=== PATIENT | female | born 1940 | race Caucasian/White ===

== ENCOUNTER → 2016-10-09 | Outpatient (CLI) | payer MEDICARE ==
[~2016-10-09] MED LIST: ALLOPURINOL100 MG PO; ATIVAN0.5 MG PO; ATIVAN1 MG PO; BACTRIM DS 8001 TA1 PO; COREG25 MG; COREG3.125 MG PO; DONNATAL1 TAB PO; Fioricet 325 MG1 TAB PO; KENALOG0.1% TP; NEURONTIN300 MG PO; PHENERGAN25 M3 PO; PREVACID30 MG PO; PRILOSEC20 M1 PO; PRILOSEC20 MG; PRILOSEC20 MG PO; REGLAN10 MG PO; REGLAN5 MG PO; RESTORIL15 MG PO; RESTORIL30 MG PO; SYMBICORT1 AER INH; TRAMADOL HCL50 MG; TYLENOL WITH CO1 TA1; ULTRAM50 MG PO; VICODIN 5/500 505 MG PO; VICODIN1 TAB PO; Vicodin 5/500 505 MG PO; ZANTAC 150150 MG PO; ZOFRAN ODT4 MG SL; [UNRECOGNIZED DRUG - REMARK]; [UNRECOGNIZED DRUG - REMARK]
[2016-10-09 10:44] LABS: BASO % 0.3 % (0.0-1.0); EOS # 0.2 10*3/uL (0.0-0.4); EOS % 4.3 % (1.0-4.0); HEMATOCRIT 37.4 % (37.0-47.0); HEMOGLOBIN 12.4 g/dl (12.0-16.0); LYMPH # 0.8 10*3/uL (1.3-4.4); LYMPH % 22.4 % (27.0-41.0); MEAN CELL VOLUME 93.5 fl (81.0-99.0); MEAN CORPUSCULAR HGB CONC 33.2 g/dl (33.0-37.0); MEAN PLATELET VOLUME 9.8 fl (9.6-12.3); MONO # 0.3 10*3/uL (0.1-1.0); MONO % 8.5 % (3.0-9.0); NEUT # 2.4 10*3/uL (2.3-7.9); PLATELET COUNT AUTOMATED 145 10*3/uL (130-400); RED CELL DISTRI WIDTH 13.7 % (0-14.5); WHITE BLOOD COUNT 3.8 10*3/uL (4.8-10.8)
[2016-10-09 11:12] LABS: ALBUMIN 3.6 gm/dl (3.1-4.5); ALKALINE PHOSPHATASE 116 U/L (45-117); BILIRUBIN, DIRECT < 0.1 mg/dL (0.0-0.2); BILIRUBIN, TOTAL 0.3 mg/dl (0.2-1.0); BUN 13 mg/dl (7-24); CARBON DIOXIDE 28 mmol/L (21-32); CHLORIDE 110 mmol/L (98-107); EST GLOM FILT AFRICAN AMERICAN > 60 ml/min; GLUCOSE 104 mg/dL (65-99); SGOT/AST 17 IU/L (3-35); SGPT/ALT 22 U/L (12-78); SODIUM 144 mmol/L (136-145)
== END | disposition home or self-care (01) ==
LOC: LAB 10:06
PROVIDERS: Family Medicine
DX: I10 Essential (primary) hypertension (principal)

== ENCOUNTER → 2017-01-20 | Outpatient (CLI) | payer MEDICARE ==
[2017-01-20 17:50] LABS: BASO % 0.2 % (0.0-1.0); EOS # 0.2 10*3/uL (0.0-0.4); EOS % 3.6 % (1.0-4.0); HEMATOCRIT 40.7 % (37.0-47.0); HEMOGLOBIN 13.4 g/dl (12.0-16.0); LYMPH # 1.4 10*3/uL (1.3-4.4); LYMPH % 28.8 % (27.0-41.0); MEAN CELL VOLUME 94.9 fl (81.0-99.0); MEAN CORPUSCULAR HGB 31.2 pg (27.0-31.0); MEAN CORPUSCULAR HGB CONC 32.9 g/dl (33.0-37.0); MEAN PLATELET VOLUME 9.9 fl (9.6-12.3); MONO # 0.4 10*3/uL (0.1-1.0); MONO % 8.2 % (3.0-9.0); NEUT # 2.8 10*3/uL (2.3-7.9); PLATELET COUNT AUTOMATED 154 10*3/uL (130-400); RED BLOOD COUNT 4.29 10*6/uL (4.10-5.10); RED CELL DISTRI WIDTH 12.8 % (0-14.5); WHITE BLOOD COUNT 4.8 10*3/uL (4.8-10.8)
[2017-01-20 18:18] LABS: ALBUMIN 4.2 gm/dl (3.1-4.5); ALKALINE PHOSPHATASE 127 U/L (45-117); BILIRUBIN, DIRECT < 0.1 mg/dL (0.0-0.2); BILIRUBIN, TOTAL 0.4 mg/dl (0.2-1.0); BUN 11 mg/dl (7-24); CARBON DIOXIDE 27 mmol/L (21-32); CHLORIDE 108 mmol/L (98-107); EST GLOM FILT AFRICAN AMERICAN > 60 ml/min; GLUCOSE 97 mg/dL (65-99); POTASSIUM 4.1 mmol/L (3.5-5.1); SGOT/AST 18 IU/L (3-35); SGPT/ALT 20 U/L (12-78); SODIUM 143 mmol/L (136-145); TOTAL PROTEIN 7.2 gm/dL (6.4-8.2)
== END | disposition home or self-care (01) ==
LOC: LAB 16:37
PROVIDERS: Family Medicine
DX: R10.9 Unspecified abdominal pain (principal)

== ENCOUNTER → 2017-06-13 | Outpatient (CLI) | payer MEDICARE | LOC: RAD 13:39 | DX: M43.22 Fusion of spine, cervical region (principal) ==

== ENCOUNTER → 2017-08-29 | Outpatient (CLI) | payer MEDICARE ==
[2017-08-29 12:35] LABS: BASO % 0.5 % (0.0-1.0); EOS # 0.2 10*3/uL (0.0-0.4); EOS % 4.7 % (1.0-4.0); HEMATOCRIT 39.9 % (37.0-47.0); HEMOGLOBIN 13.6 g/dl (12.0-16.0); LYMPH # 1.2 10*3/uL (1.3-4.4); MEAN CELL VOLUME 93.2 fl (81.0-99.0); MEAN CORPUSCULAR HGB 31.8 pg (27.0-31.0); MEAN CORPUSCULAR HGB CONC 34.1 g/dl (33.0-37.0); MEAN PLATELET VOLUME 9.9 fl (9.6-12.3); MONO # 0.3 10*3/uL (0.1-1.0); MONO % 7.8 % (3.0-9.0); NEUT # 2.5 10*3/uL (2.3-7.9); NEUT % 58.8 % (47.0-73.0); PLATELET COUNT AUTOMATED 179 10*3/uL (130-400); RED BLOOD COUNT 4.28 10*6/uL (4.10-5.10); RED CELL DISTRI WIDTH 12.4 % (0-14.5); WHITE BLOOD COUNT 4.3 10*3/uL (4.8-10.8)
[2017-08-29 13:04] LABS: ALBUMIN 3.8 gm/dl (3.1-4.5); BILIRUBIN, DIRECT 0.1 mg/dL (0.0-0.2); BUN 20 mg/dl (7-24); CHLORIDE 108 mmol/L (98-107); CHOLESTEROL 212 mg/dL (<200); POTASSIUM 4.3 mmol/L (3.5-5.1); SGOT/AST 16 IU/L (3-35); SGPT/ALT 20 U/L (12-78); SODIUM 141 mmol/L (136-145); TRIGLYCERIDES 130 mg/dl (<150); VLDL CHOLESTEROL 26 mg/dL (6-40)
[2017-08-29 13:11] LABS: ALKALINE PHOSPHATASE 108 U/L (45-117); HDL CHOLESTEROL 48 mg/dl (40-60); LDL CHOLESTEROL 138 mg/dL (9-159); THYROXINE (T4) TOTAL 7.8 ug/dl (4.8-13.9)
== END | disposition home or self-care (01) ==
LOC: LAB 11:39
PROVIDERS: Family Medicine
DX: I10 Essential (primary) hypertension (principal)

== ENCOUNTER 2017-10-12 00:16 | Inpatient (IN) | payer MEDICARE ==
[~2017-10-12] VITALS: Ht 170.1 cm; Wt 78.6 kg
[~2017-10-12 00:16] MED LIST changes: -COREG25 MG; +COREG25 MG PO
[2017-10-12 00:17] VITALS: BP 119/69
[2017-10-12 01:07] LABS: BASO % 0.2 % (0.0-1.0); EOS # 0.1 10*3/uL (0.0-0.4); EOS % 0.6 % (1.0-4.0); HEMATOCRIT 44.1 % (37.0-47.0); HEMOGLOBIN 14.7 g/dl (12.0-16.0); LYMPH # 1.4 10*3/uL (1.3-4.4); LYMPH % 9.8 % (27.0-41.0); MEAN CORPUSCULAR HGB CONC 33.3 g/dl (33.0-37.0); MEAN PLATELET VOLUME 9.9 fl (9.6-12.3); MONO # 0.8 10*3/uL (0.1-1.0); MONO % 5.8 % (3.0-9.0); NEUT # 12.1 10*3/uL (2.3-7.9); NEUT % 83.2 % (47.0-73.0); PLATELET COUNT AUTOMATED 229 10*3/uL (130-400); RED BLOOD COUNT 4.74 10*6/uL (4.10-5.10); RED CELL DISTRI WIDTH 13.1 % (0-14.5); WHITE BLOOD COUNT 14.5 10*3/uL (4.8-10.8)
[2017-10-12 01:22] LABS: ACETAMINOPHEN (TYLENOL) < 2.0 ug/ml (10-30); ALKALINE PHOSPHATASE 125 U/L (45-117); BUN 17 mg/dl (7-24); CHLORIDE 105 mmol/L (98-107); CREATININE 0.94 mg/dL (0.55-1.02); POTASSIUM 4.4 mmol/L (3.5-5.1); SGOT/AST 62 IU/L (3-35); SGPT/ALT 42 U/L (12-78); SODIUM 138 mmol/L (136-145); TOTAL PROTEIN 7.2 gm/dL (6.4-8.2)
[2017-10-12 01:30] LABS: THYROID STIM HORMONE (HS) 0.508 uIU/ml (0.358-4.75)
[2017-10-12 02:30] VITALS: BP 127/62
[2017-10-12 03:30] VITALS: BP 110/70
[2017-10-12 03:39] LABS: BILIRUBIN NEGATIVE (NEGATIVE); BLOOD 3+ (NEGATIVE); CLARITY CLEAR (CLEAR); COLOR YELLOW (YELLOW); GLUCOSE NEGATIVE (NEGATIVE); KETONE NEGATIVE (NEGATIVE); LEUKO ESTERASE NEGATIVE (NEGATIVE); NITRITE NEGATIVE (NEGATIVE); PH 5.5 (5.0-9.0); SPECIFIC GRAVITY 1.015 (1.005-1.030); UROBILINOGEN 0.2 E.U./dl (0.2-1.0)
[2017-10-12 03:44] LABS: URINE AMPHETAMINES < 1000 (1000ng/ml); URINE BARBITURATES < 200 (200ng/ml); URINE BENZODIAZEPINES < 200 (200ng/ml); URINE CANNABINOIDS (THC) < 50 (50ng/ml); URINE COCAINE < 300 (300ng/ml); URINE METHADONE < 300 (300ng/ml); URINE OPIATES < 300 (300ng/ml); URINE PHENCYCLIDINE < 25 (25ng/ml)
[2017-10-12 03:45] VITALS: BP 127/81
[2017-10-12] MEDS ORDERED: NORVASC2.5 MG PO (04:39)
[2017-10-12] MEDS ORDERED: PRILOSEC20 M1 PO (04:39)
[2017-10-12] MEDS ORDERED: ATIVAN0.5 MG PO (04:42)
[2017-10-12 06:11] LABS: ALBUMIN 3.3 gm/dl (3.1-4.5); ALKALINE PHOSPHATASE 98 U/L (45-117); BUN 15 mg/dl (7-24); CHLORIDE 111 mmol/L (98-107); CREATININE 0.81 mg/dL (0.55-1.02); PHOSPHOROUS 2.4 mg/dL (2.5-4.9); POTASSIUM 4.1 mmol/L (3.5-5.1); SGOT/AST 59 IU/L (3-35); SGPT/ALT 36 U/L (12-78); SODIUM 144 mmol/L (136-145); TOTAL PROTEIN 5.7 gm/dL (6.4-8.2)
[2017-10-12 06:26] LABS: CPK 1483 U/L (26-192)
[2017-10-12 07:20] LABS: BASO % 0.1 % (0.0-1.0); EOS % 0.1 % (1.0-4.0); LYMPH # 0.9 10*3/uL (1.3-4.4); LYMPH % 7.8 % (27.0-41.0); MEAN CELL VOLUME 93.6 fl (81.0-99.0); MEAN CORPUSCULAR HGB 32.1 pg (27.0-31.0); MEAN CORPUSCULAR HGB CONC 34.3 g/dl (33.0-37.0); MEAN PLATELET VOLUME 10.1 fl (9.6-12.3); MONO # 0.9 10*3/uL (0.1-1.0); MONO % 7.7 % (3.0-9.0); NEUT # 9.4 10*3/uL (2.3-7.9); NEUT % 83.9 % (47.0-73.0); PLATELET COUNT AUTOMATED 161 10*3/uL (130-400); RED BLOOD COUNT 3.92 10*6/uL (4.10-5.10); RED CELL DISTRI WIDTH 13.3 % (0-14.5); WHITE BLOOD COUNT 11.2 10*3/uL (4.8-10.8)
[2017-10-12 07:21] LABS: HEMATOCRIT 36.7 % (37.0-47.0); HEMOGLOBIN 12.6 g/dl (12.0-16.0)
[2017-10-12 08:00] VITALS: BP 161/93
[2017-10-12 09:21] VITALS: BP 153/80
== END 2017-10-12 11:07 | disposition short-term general hospital (02) | DRG 281 ==
LOC: ED 00:16 → EDHOLD 02:32 → ICCU 02:42
PROVIDERS: Emergency Medicine Emergency Medical Services; Internal Medicine Nephrology
DX: I21.4 Non-ST elevation (NSTEMI) myocardial infarction (principal); R65.10 Systemic inflammatory response syndrome (SIRS) of non-infectious origin without acute organ dysfunction; T68.XXXA Hypothermia, initial encounter; D70.9 Neutropenia, unspecified; R00.1 Bradycardia, unspecified; F33.9 Major depressive disorder, recurrent, unspecified; F10.929 Alcohol use, unspecified with intoxication, unspecified; R73.9 Hyperglycemia, unspecified; R74.0 Nonspecific elevation of levels of transaminase and lactic acid dehydrogenase [LDH]; I10 Essential (primary) hypertension; F41.1 Generalized anxiety disorder; G89.29 Other chronic pain; S00.81XA Abrasion of other part of head, initial encounter; S40.812A Abrasion of left upper arm, initial encounter; S40.811A Abrasion of right upper arm, initial encounter; S60.512A Abrasion of left hand, initial encounter; S60.511A Abrasion of right hand, initial encounter; Z96.653 Presence of artificial knee joint, bilateral; T14.8XXA Other injury of unspecified body region, initial encounter; M10.9 Gout, unspecified; D72.9 Disorder of white blood cells, unspecified; D72.810 Lymphocytopenia; E66.3 Overweight; T79.6XXA Traumatic ischemia of muscle, initial encounter; W01.0XXA Fall on same level from slipping, tripping and stumbling without subsequent striking against object, initial encounter; Y93.89 Activity, other specified; Y92.098 Other place in other non-institutional residence as the place of occurrence of the external cause; Y99.8 Other external cause status; Z87.19 Personal history of other diseases of the digestive system; Z88.6 Allergy status to analgesic agent; Z88.8 Allergy status to other drugs, medicaments and biological substances; Z90.710 Acquired absence of both cervix and uterus; Z82.5 Family history of asthma and other chronic lower respiratory diseases; Z82.49 Family history of ischemic heart disease and other diseases of the circulatory system; Z79.899 Other long term (current) drug therapy; Z68.27 Body mass index [BMI] 27.0-27.9, adult

== ENCOUNTER → 2018-01-07 | Outpatient (CLI) | payer MEDICARE ==
[~2018-01-07] MED LIST changes: +HEARTBURN PREVE10 MG PO; +NORVASC2.5 MG PO
[2018-01-07 17:59] LABS: BASO % 0.2 % (0.0-1.0); EOS # 0.3 10*3/uL (0.0-0.4); EOS % 5.6 % (1.0-4.0); HEMATOCRIT 39.1 % (37.0-47.0); HEMOGLOBIN 12.7 g/dl (12.0-16.0); LYMPH # 1.3 10*3/uL (1.3-4.4); LYMPH % 28.3 % (27.0-41.0); MEAN CELL VOLUME 92.4 fl (81.0-99.0); MEAN CORPUSCULAR HGB CONC 32.5 g/dl (33.0-37.0); MEAN PLATELET VOLUME 10.1 fl (9.6-12.3); MONO # 0.4 10*3/uL (0.1-1.0); MONO % 8.8 % (3.0-9.0); NEUT # 2.7 10*3/uL (2.3-7.9); NEUT % 56.9 % (47.0-73.0); PLATELET COUNT AUTOMATED 155 10*3/uL (130-400); RED BLOOD COUNT 4.23 10*6/uL (4.10-5.10); WHITE BLOOD COUNT 4.7 10*3/uL (4.8-10.8)
[2018-01-07 18:37] LABS: ALBUMIN 4.1 gm/dl (3.1-4.5); BILIRUBIN, DIRECT 0.1 mg/dL (0.0-0.2); CREATININE 1.29 mg/dL (0.55-1.02)
[2018-01-07 18:38] LABS: TOTAL PROTEIN 7.3 gm/dL (6.4-8.2)
== END | disposition home or self-care (01) ==
LOC: LAB 17:18
PROVIDERS: Family Medicine
DX: N20.0 Calculus of kidney (principal); R63.0 Anorexia; R11.2 Nausea with vomiting, unspecified; Z90.710 Acquired absence of both cervix and uterus

== ENCOUNTER → 2018-01-10 | Outpatient (CLI) | payer MEDICARE ==
[2018-01-10 15:38] LABS: CREATININE 1.2 mg/dL (0.55-1.02); POTASSIUM 4.5 mmol/L (3.5-5.1)
== END | disposition home or self-care (01) ==
LOC: LAB 14:38
PROVIDERS: Family Medicine
DX: K56.7 Ileus, unspecified (principal); R11.0 Nausea

== ENCOUNTER → 2018-01-24 | Outpatient (CLI) | payer MEDICARE ==
[2018-01-24 14:07] LABS: CREATININE 1.16 mg/dL (0.55-1.02)
== END | disposition home or self-care (01) ==
LOC: LAB 13:02
PROVIDERS: Family Medicine
DX: N28.9 Disorder of kidney and ureter, unspecified (principal)

== ENCOUNTER → 2018-02-13 | Day surgery (SDC) | payer MEDICARE ==
[~2018-02-13] VITALS: Ht 167.6 cm; Wt 71.2 kg
--- NOTE | ~2018-02-13 | O ---
[place], [place] OPERATIVE NOTE NAME: EPIFANIO TOLLIVER UNIT #: [id number] ROOM: DOCTOR: SUJATHA MILLER MD BIRTHDATE: [birth year] DOS: 02/13/2018 HISTORY OF PRESENT ILLNESS: A 77-year-old patient who was presented with nausea, abdominal distress, and change in bowel habit. ALLERGIES: No known medication. FAMILY HISTORY: Noncontributory. PAST MEDICAL HISTORY: Hypertension. PAST MEDICAL HISTORY: Right shoulder, bilateral knee. PROCEDURE: Today's procedure part of investigation is panendoscopy plus biopsy and colonoscopy. PREMEDICATION: Propofol. SCOPE: Olympus forward-viewing gastroscope Q10 video. REPORT: After putting the patient in left lateral position and application of lubricant to the scope, the scope was introduced; thereafter, under direct visualization, advanced through the length of esophagus without difficulty. Esophagus, cervical, thoracic distal within normal limits. Gastric pouch was entered. Gastritis seen. Antral biopsy obtained. Duodenal bulb, second and third part within normal limits. The patient extubated and tolerated the procedure well. IMPRESSION: Gastritis, status post biopsy. PLAN AND DISCUSSION: We are going to proceed with colonoscopy. COLONOSCOPY: INDICATION FOR PROCEDURE: Abdominal distress, change in bowel movement. PREMEDICATION: Propofol. SCOPE: Olympus folding colonoscope 10L video. REPORT: After putting the patient in left lateral position and application of lubricant to the scope, the scope was introduced. Thereafter, under direct visualization, advanced through the length of colon without difficulty. Colon mucosa and vascularity carefully examined. Base of the cecum explored, appendiceal orifice identified, and ileocecal valve was defined. Scope was gradually withdrawn from ascending, transverse, and descending colon. The patient extubated and tolerated the procedure well. IMPRESSION: Normal colonoscopic examination. [place], [place] OPERATIVE NOTE NAME: EPIFANIO TOLLIVER UNIT #: [id number] ROOM: DOCTOR: SUJATHA MILLER MD BIRTHDATE: [birth year] PLAN AND DISCUSSION: The patient was assured of no colonic carcinoma. If the patient ____ continues, we are going to organize a CT scan of the abdomen and pelvis. Otherwise, we are going to continue famotidine 20 mg one daily at bedtime. Would suffice management of her epigastric distress. Nausea workup still in progress. Thank you very much indeed for your kind referral. SUJATHA MILLER MD CM:OPRECORD:OPERATIVE NOTE [id number] SUJATHA MILLER MD 02/13/18 1327 interface
[2018-02-13 10:21] VITALS: BP 159/76
[2018-02-13 11:17] VITALS: BP 136/54
[2018-02-13 11:32] VITALS: BP 133/48
[2018-02-13 11:47] VITALS: BP 138/60
== END | disposition home or self-care (01) ==
LOC: SDC 02-08 12:30
DX: K29.50 Unspecified chronic gastritis without bleeding (principal); K62.5 Hemorrhage of anus and rectum; R19.4 Change in bowel habit; K21.9 Gastro-esophageal reflux disease without esophagitis; I10 Essential (primary) hypertension; G43.909 Migraine, unspecified, not intractable, without status migrainosus; G89.29 Other chronic pain; M19.90 Unspecified osteoarthritis, unspecified site; M10.9 Gout, unspecified; H91.92 Unspecified hearing loss, left ear; F41.8 Other specified anxiety disorders; R63.4 Abnormal weight loss; Z68.25 Body mass index [BMI] 25.0-25.9, adult; Z90.710 Acquired absence of both cervix and uterus; Z88.5 Allergy status to narcotic agent; Z88.8 Allergy status to other drugs, medicaments and biological substances; Z96.653 Presence of artificial knee joint, bilateral

== ENCOUNTER → 2018-04-23 | Outpatient (CLI) | payer MEDICARE ==
[2018-04-23 14:19] LABS: CHLORIDE 110 mmol/L (98-107); POTASSIUM 4.3 mmol/L (3.5-5.1); SODIUM 143 mmol/L (136-145)
[2018-04-23 14:38] LABS: ALBUMIN 3.8 gm/dl (3.1-4.5); ALKALINE PHOSPHATASE 108 U/L (45-117); BILIRUBIN, DIRECT < 0.1 mg/dL (0.0-0.2); BUN 10 mg/dl (7-24); CREATININE 0.92 mg/dL (0.55-1.02); SGOT/AST 21 IU/L (3-35); SGPT/ALT 21 U/L (12-78); TOTAL PROTEIN 7.3 gm/dL (6.4-8.2)
[2018-04-23 14:54] LABS: BASO % 0.4 % (0.0-1.0); EOS # 0.4 10*3/uL (0.0-0.4); EOS % 8.1 % (1.0-4.0); HEMATOCRIT 38.8 % (37.0-47.0); HEMOGLOBIN 12.8 g/dl (12.0-16.0); LYMPH # 1.1 10*3/uL (1.3-4.4); MEAN CELL VOLUME 93.9 fl (81.0-99.0); MEAN PLATELET VOLUME 10.3 fl (9.6-12.3); MONO # 0.4 10*3/uL (0.1-1.0); MONO % 8.5 % (3.0-9.0); NEUT # 2.9 10*3/uL (2.3-7.9); NEUT % 59.6 % (47.0-73.0); PLATELET COUNT AUTOMATED 179 10*3/uL (130-400); RED BLOOD COUNT 4.13 10*6/uL (4.10-5.10); WHITE BLOOD COUNT 4.8 10*3/uL (4.8-10.8)
== END | disposition home or self-care (01) ==
LOC: LAB 13:19
PROVIDERS: Family Medicine
DX: I10 Essential (primary) hypertension (principal); N28.9 Disorder of kidney and ureter, unspecified

== ENCOUNTER 2018-07-05 18:49 | Emergency (ER) | payer MEDICARE ==
[~2018-07-05] VITALS: Ht 170.1 cm; Wt 74.4 kg
--- NOTE | ~2018-07-05 | EKG ---
[place], [place] ELECTROCARDIOGRAM REPORT NAME: EPIFANIO TOLLIVER UNIT #: [id number] ROOM: DOCTOR: KRZYSZTOF DRAFT REPORT BIRTHDATE: [birth year] [facility] Test Date: 2018-07-05 Test Time: 18:54:14 Pat Name: EPIFANIO TOLLIVER Department: Room: Gender: F Real Estate Services Administrator: : 1940 Requested By: LOREN LEMUS Order Number: [id number] Reading MD: Felicity Camilo MD Measurements Intervals [place] Rate: 62 P: 0 [place]: 169 QRS: -21 QRSD: 85 T: 45 QT: 435 QTc: 442 Interpretive Statements Sinus rhythm Abnormal R-wave progression, early transition Left ventricular hypertrophy Baseline wander in lead(s) V2 No previous ECG available for comparison Electronically Signed On 07-09-2018 11:49:43 PST by Felicity Camilo MD CM:EKGRPT:ELECTROCARDIOGRAM REPORT [id number] LOREN GARCIA DRAFT REPORT LOREN LEMUS DO
[2018-07-05 19:16] LABS: BASO % 0.3 % (0.0-1.0); EOS # 0.2 10*3/uL (0.0-0.4); EOS % 3.6 % (1.0-4.0); HEMATOCRIT 37.2 % (37.0-47.0); HEMOGLOBIN 12.4 g/dl (12.0-16.0); LYMPH # 1.3 10*3/uL (1.3-4.4); LYMPH % 22.7 % (27.0-41.0); MEAN CELL VOLUME 92.1 fl (81.0-99.0); MEAN CORPUSCULAR HGB 30.7 pg (27.0-31.0); MEAN CORPUSCULAR HGB CONC 33.3 g/dl (33.0-37.0); MEAN PLATELET VOLUME 9.5 fl (9.6-12.3); MONO # 0.5 10*3/uL (0.1-1.0); MONO % 8.3 % (3.0-9.0); NEUT # 3.8 10*3/uL (2.3-7.9); NEUT % 64.8 % (47.0-73.0); PLATELET COUNT AUTOMATED 173 10*3/uL (130-400); RED BLOOD COUNT 4.04 10*6/uL (4.10-5.10); WHITE BLOOD COUNT 5.9 10*3/uL (4.8-10.8)
[2018-07-05 19:32] LABS: ALBUMIN 3.7 gm/dl (3.1-4.5); BUN 15 mg/dl (7-24); CHLORIDE 108 mmol/L (98-107); CREATININE 1.03 mg/dL (0.55-1.02); POTASSIUM 3.8 mmol/L (3.5-5.1); SGOT/AST 26 IU/L (3-35); SGPT/ALT 26 U/L (12-78); SODIUM 141 mmol/L (136-145); TOTAL PROTEIN 6.9 gm/dL (6.4-8.2)
[2018-07-05 19:33] LABS: ALKALINE PHOSPHATASE 106 U/L (45-117)
[2018-07-05 19:34] LABS: TROPONIN I < 0.015 ng/ml (<0.045)
[2018-07-05 19:45] LABS: INTERNATIONAL NORM RATIO 0.9 (2.0-3.5)
[2018-07-05 23:10] VITALS: BP 168/72
== END 2018-07-05 23:30 | disposition short-term general hospital (02) ==
LOC: ED 18:49
PROVIDERS: Emergency Medicine
DX: G45.9 Transient cerebral ischemic attack, unspecified (principal); I10 Essential (primary) hypertension; M10.9 Gout, unspecified; G89.29 Other chronic pain; Z88.6 Allergy status to analgesic agent; Z79.899 Other long term (current) drug therapy

== ENCOUNTER → 2018-09-04 | Outpatient (CLI) | payer MEDICARE ==
[2018-09-04 15:16] LABS: BASO % 0.3 % (0.0-1.0); EOS # 0.2 10*3/uL (0.0-0.4); EOS % 4.9 % (1.0-4.0); HEMATOCRIT 39.1 % (37.0-47.0); HEMOGLOBIN 12.9 g/dl (12.0-16.0); LYMPH # 0.9 10*3/uL (1.3-4.4); LYMPH % 23.8 % (27.0-41.0); MEAN CELL VOLUME 95.1 fl (81.0-99.0); MEAN CORPUSCULAR HGB 31.4 pg (27.0-31.0); MEAN PLATELET VOLUME 10.2 fl (9.6-12.3); MONO # 0.3 10*3/uL (0.1-1.0); MONO % 6.8 % (3.0-9.0); NEUT # 2.4 10*3/uL (2.3-7.9); NEUT % 63.9 % (47.0-73.0); PLATELET COUNT AUTOMATED 148 10*3/uL (130-400); RED BLOOD COUNT 4.11 10*6/uL (4.10-5.10); RED CELL DISTRI WIDTH 13.3 % (0-14.5); WHITE BLOOD COUNT 3.7 10*3/uL (4.8-10.8)
[2018-09-04 15:42] LABS: ALBUMIN 3.9 gm/dl (3.1-4.5); ALKALINE PHOSPHATASE 113 U/L (45-117); BILIRUBIN, DIRECT 0.1 mg/dL (0.0-0.2); BUN 16 mg/dl (7-24); CHLORIDE 109 mmol/L (98-107); CHOLESTEROL 158 mg/dL (<200); CREATININE 0.94 mg/dL (0.55-1.02); HDL CHOLESTEROL 54 mg/dl (40-60); LDL CHOLESTEROL 83 mg/dL (9-159); POTASSIUM 4.4 mmol/L (3.5-5.1); SGOT/AST 24 IU/L (3-35); SGPT/ALT 31 U/L (12-78); SODIUM 143 mmol/L (136-145); THYROXINE (T4) TOTAL 8.6 ug/dl (4.8-13.9); TOTAL PROTEIN 7.2 gm/dL (6.4-8.2); TRIGLYCERIDES 104 mg/dl (<150); VLDL CHOLESTEROL 21 mg/dL (6-40)
[2018-09-04 15:48] LABS: THYROID STIM HORMONE (HS) 0.619 uIU/ml (0.358-4.75)
== END | disposition home or self-care (01) ==
LOC: LAB 14:52
PROVIDERS: Family Medicine
DX: I10 Essential (primary) hypertension (principal); I73.9 Peripheral vascular disease, unspecified

== ENCOUNTER → 2018-12-17 | Outpatient (CLI) | payer MEDICARE ==
[2018-12-17 16:11] LABS: BASO % 0.2 % (0.0-1.0); EOS # 0.2 10*3/uL (0.0-0.4); EOS % 3.4 % (1.0-4.0); HEMATOCRIT 37.5 % (37.0-47.0); HEMOGLOBIN 12.3 g/dl (12.0-16.0); MEAN CELL VOLUME 96.9 fl (81.0-99.0); MEAN CORPUSCULAR HGB 31.8 pg (27.0-31.0); MEAN CORPUSCULAR HGB CONC 32.8 g/dl (33.0-37.0); MONO # 0.3 10*3/uL (0.1-1.0); MONO % 7.2 % (3.0-9.0); NEUT # 3.2 10*3/uL (2.3-7.9); PLATELET COUNT AUTOMATED 156 10*3/uL (130-400); RED BLOOD COUNT 3.87 10*6/uL (4.10-5.10); RED CELL DISTRI WIDTH 12.6 % (0-14.5); WHITE BLOOD COUNT 4.7 10*3/uL (4.8-10.8)
[2018-12-17 16:40] LABS: ALBUMIN 3.7 gm/dl (3.1-4.5); ALKALINE PHOSPHATASE 95 U/L (45-117); BILIRUBIN, DIRECT < 0.1 mg/dL (0.0-0.2); BUN 13 mg/dl (7-24); CHLORIDE 107 mmol/L (98-107); CREATININE 1.16 mg/dL (0.55-1.02); POTASSIUM 4.5 mmol/L (3.5-5.1); SGOT/AST 18 IU/L (3-35); SGPT/ALT 24 U/L (12-78); SODIUM 140 mmol/L (136-145); TOTAL PROTEIN 6.7 gm/dL (6.4-8.2)
== END | disposition home or self-care (01) ==
LOC: LAB 15:34
PROVIDERS: Family Medicine
DX: I10 Essential (primary) hypertension (principal)

== ENCOUNTER → 2019-03-27 | Outpatient (CLI) | payer MEDICARE ==
[2019-03-27 15:29] LABS: BASO % 0.2 % (0.0-1.0); EOS # 0.1 10*3/uL (0.0-0.4); EOS % 1.9 % (1.0-4.0); LYMPH # 0.7 10*3/uL (1.3-4.4); LYMPH % 15.4 % (27.0-41.0); MEAN CELL VOLUME 95.5 fl (81.0-99.0); MEAN CORPUSCULAR HGB 31.8 pg (27.0-31.0); MEAN CORPUSCULAR HGB CONC 33.3 g/dl (33.0-37.0); MEAN PLATELET VOLUME 10.5 fl (9.6-12.3); MONO # 0.3 10*3/uL (0.1-1.0); MONO % 7.3 % (3.0-9.0); NEUT # 3.5 10*3/uL (2.3-7.9); PLATELET COUNT AUTOMATED 168 10*3/uL (130-400); RED BLOOD COUNT 3.77 10*6/uL (4.10-5.10); RED CELL DISTRI WIDTH 13.1 % (0-14.5); WHITE BLOOD COUNT 4.7 10*3/uL (4.8-10.8)
[2019-03-27 16:00] LABS: ALBUMIN 3.7 gm/dl (3.1-4.5); ALKALINE PHOSPHATASE 80 U/L (45-117); BILIRUBIN, DIRECT 0.2 mg/dL (0.0-0.2); BUN 13 mg/dl (7-24); CHLORIDE 110 mmol/L (98-107); CREATININE 0.99 mg/dL (0.55-1.02); POTASSIUM 3.4 mmol/L (3.5-5.1); SGOT/AST 14 IU/L (3-35); SGPT/ALT 22 U/L (12-78); SODIUM 143 mmol/L (136-145); THYROXINE (T4) TOTAL 8.8 ug/dl (4.8-13.9); TOTAL PROTEIN 6.5 gm/dL (6.4-8.2)
[2019-03-27 16:07] LABS: THYROID STIM HORMONE (HS) 0.341 uIU/ml (0.358-4.75)
== END | disposition home or self-care (01) ==
LOC: LAB 14:21
PROVIDERS: Family Medicine
DX: M16.11 Unilateral primary osteoarthritis, right hip (principal); R63.4 Abnormal weight loss; N28.9 Disorder of kidney and ureter, unspecified

== ENCOUNTER → 2019-05-02 | Outpatient (CLI) | payer MEDICARE ==
[~2019-05-02] MED LIST changes: +ACETAMINOPHEN325 M2 PO; +AMINOPHYLLIN200 MG PO; +AMLODIPINE BES2.5 MG PO; +ASPIR LOW81 MG PO; +CARVEDILOL12.5 MG PO; +Clopidogrel75 MG PO; +FOLTANX RF CAP1 EACH PO; +KLOR-CON M1010 ME1 PO; +LIPITOR40 MG PO; +LYRICA75 M1 PO; +MIRTAZAPINE15 M2 PO; +NAMENDA-5 PO; +OMEPRAZOLE MAGN20 MG PO; +ONDANSETRON HYDR4 MG PO; +QUETIAPINE FUMA50 M1 PO; +REMERON15 M2 PO; +RIVASTIGMINE1 EACH T; +SEPTDS PO; +SEROQUEL100 MG PO; +VITAMIN D5000 UNI1 PO
[2019-05-02 13:08] LABS: BUN 14 mg/dl (7-24); CHLORIDE 109 mmol/L (98-107); CREATININE 1.01 mg/dL (0.55-1.02); POTASSIUM 4.5 mmol/L (3.5-5.1); SODIUM 140 mmol/L (136-145)
== END | disposition home or self-care (01) ==
LOC: LAB 12:10
PROVIDERS: Family Medicine
DX: E87.6 Hypokalemia (principal); R73.9 Hyperglycemia, unspecified

== ENCOUNTER 2019-05-20 11:41 | Emergency (ER) | payer MEDICARE ==
[~2019-05-20] VITALS: Ht 170.1 cm; Wt 73.0 kg
[~2019-05-20 11:41] MED LIST changes: -ACETAMINOPHEN325 M2 PO; -AMINOPHYLLIN200 MG PO; -AMLODIPINE BES2.5 MG PO; -ASPIR LOW81 MG PO; -CARVEDILOL12.5 MG PO; -Clopidogrel75 MG PO; -FOLTANX RF CAP1 EACH PO; -KLOR-CON M1010 ME1 PO; -LIPITOR40 MG PO; -LYRICA75 M1 PO; -MIRTAZAPINE15 M2 PO; -NAMENDA-5 PO; -OMEPRAZOLE MAGN20 MG PO; -ONDANSETRON HYDR4 MG PO; -QUETIAPINE FUMA50 M1 PO; -REMERON15 M2 PO; -RIVASTIGMINE1 EACH T; -SEPTDS PO; -SEROQUEL100 MG PO; -VITAMIN D5000 UNI1 PO
[2019-05-20 12:08] LABS: BASO % 0.2 % (0.0-1.0); EOS # 0.2 10*3/uL (0.0-0.4); HEMATOCRIT 36.3 % (37.0-47.0); HEMOGLOBIN 12.1 g/dl (12.0-16.0); LYMPH # 0.7 10*3/uL (1.3-4.4); LYMPH % 14.5 % (27.0-41.0); MEAN CELL VOLUME 98.4 fl (81.0-99.0); MEAN CORPUSCULAR HGB 32.8 pg (27.0-31.0); MEAN CORPUSCULAR HGB CONC 33.3 g/dl (33.0-37.0); MEAN PLATELET VOLUME 10.2 fl (9.6-12.3); MONO # 0.3 10*3/uL (0.1-1.0); MONO % 6.1 % (3.0-9.0); NEUT # 3.8 10*3/uL (2.3-7.9); NEUT % 75.6 % (47.0-73.0); PLATELET COUNT AUTOMATED 152 10*3/uL (130-400); RED BLOOD COUNT 3.69 10*6/uL (4.10-5.10); RED CELL DISTRI WIDTH 12.8 % (0-14.5); WHITE BLOOD COUNT 5.1 10*3/uL (4.8-10.8)
[2019-05-20 12:20] LABS: ALBUMIN 4.1 gm/dl (3.1-4.5); ALKALINE PHOSPHATASE 93 U/L (45-117); BUN 11 mg/dl (7-24); CREATININE 1.05 mg/dL (0.55-1.02); SGOT/AST 18 IU/L (3-35); SGPT/ALT 28 U/L (12-78)
[2019-05-20 12:25] LABS: CHLORIDE 108 mmol/L (98-107); POTASSIUM 4.3 mmol/L (3.5-5.1); SODIUM 141 mmol/L (136-145)
[2019-05-20 12:29] LABS: BILIRUBIN NEGATIVE (NEGATIVE); BLOOD NEGATIVE (NEGATIVE); CLARITY SL CLOUDY (CLEAR); COLOR STRAW (YELLOW); GLUCOSE NEGATIVE (NEGATIVE); KETONE 1+ (NEGATIVE); LEUKO ESTERASE 1+ (NEGATIVE); NITRITE NEGATIVE (NEGATIVE); PH 7.5 (5.0-9.0); UROBILINOGEN 0.2 E.U./dl (0.2-1.0)
[2019-05-20 12:40] LABS: BACTERIA 1+; WBC 51-100 wbc/hpf (0-5)
[2019-05-20 16:22] VITALS: BP 174/92
== END 2019-05-20 16:55 | disposition short-term general hospital (02) ==
LOC: ED 11:41
PROVIDERS: Emergency Medicine
DX: I63.9 Cerebral infarction, unspecified (principal); S00.83XA Contusion of other part of head, initial encounter; I10 Essential (primary) hypertension; K21.9 Gastro-esophageal reflux disease without esophagitis; I25.2 Old myocardial infarction; G89.29 Other chronic pain; Z86.73 Personal history of transient ischemic attack (TIA), and cerebral infarction without residual deficits; Z88.8 Allergy status to other drugs, medicaments and biological substances; Z88.6 Allergy status to analgesic agent; Z79.899 Other long term (current) drug therapy; Z90.710 Acquired absence of both cervix and uterus; W22.8XXA Striking against or struck by other objects, initial encounter; Y93.89 Activity, other specified; Y92.098 Other place in other non-institutional residence as the place of occurrence of the external cause; Y99.8 Other external cause status

== ENCOUNTER 2019-05-26 20:19 | Emergency (ER) | payer MEDICARE ==
[~2019-05-26] VITALS: Ht 170.1 cm; Wt 70.1 kg
[2019-05-26 20:25] VITALS: BP 165/60
[2019-05-26] MEDS ORDERED: QUETIAPINE FUMA50 M1 PO (20:29)
[2019-05-26] MEDS ORDERED: ATIVAN0.5 MG PO (20:30)
[2019-05-26] MEDS ORDERED: LIPITOR40 MG PO (20:31)
[2019-05-26] MEDS ORDERED: AMLODIPINE BES2.5 MG PO (20:31)
[2019-05-26] MEDS ORDERED: OMEPRAZOLE MAGN20 MG PO (20:32)
[2019-05-26] MEDS ORDERED: Clopidogrel75 MG PO (20:32)
[2019-05-26] MEDS ORDERED: ASPIR LOW81 MG PO (20:33)
[2019-05-26] MEDS ORDERED: NEURONTIN300 MG PO (20:33)
[2019-05-26] MEDS ORDERED: FOLTANX RF CAP1 EACH PO (20:33)
[2019-05-26] MEDS ORDERED: KLOR-CON M1010 ME1 PO (20:34)
[2019-05-26] MEDS ORDERED: CARVEDILOL12.5 MG PO (20:34)
[2019-05-26] MEDS ORDERED: LYRICA75 M1 PO (20:35)
[2019-05-26] MEDS ORDERED: ONDANSETRON HYDR4 MG PO (20:36)
[2019-05-26] MEDS ORDERED: ULTRAM50 MG PO (20:36)
[2019-05-26] MEDS ORDERED: ACETAMINOPHEN325 M2 PO (20:37)
[2019-05-26 20:59] LABS: BASO % 0.2 % (0.0-1.0); EOS # 0.2 10*3/uL (0.0-0.4); EOS % 2.3 % (1.0-4.0); HEMATOCRIT 38.8 % (37.0-47.0); HEMOGLOBIN 12.8 g/dl (12.0-16.0); LYMPH # 1.2 10*3/uL (1.3-4.4); LYMPH % 17.8 % (27.0-41.0); MEAN CORPUSCULAR HGB 32.3 pg (27.0-31.0); MEAN PLATELET VOLUME 10.2 fl (9.6-12.3); MONO # 0.4 10*3/uL (0.1-1.0); MONO % 6.5 % (3.0-9.0); NEUT # 4.8 10*3/uL (2.3-7.9); NEUT % 72.9 % (47.0-73.0); PLATELET COUNT AUTOMATED 169 10*3/uL (130-400); RED BLOOD COUNT 3.96 10*6/uL (4.10-5.10); RED CELL DISTRI WIDTH 13.2 % (0-14.5); WHITE BLOOD COUNT 6.6 10*3/uL (4.8-10.8)
[2019-05-26 21:14] LABS: ALKALINE PHOSPHATASE 88 U/L (45-117); BUN 17 mg/dl (7-24); CHLORIDE 113 mmol/L (98-107); CREATININE 1.01 mg/dL (0.55-1.02); POTASSIUM 3.9 mmol/L (3.5-5.1); SGOT/AST 39 IU/L (3-35); SGPT/ALT 49 U/L (12-78); SODIUM 144 mmol/L (136-145); TOTAL PROTEIN 7.1 gm/dL (6.4-8.2)
[2019-05-26 21:45] LABS: BILIRUBIN NEGATIVE (NEGATIVE); BLOOD TRACE-INTACT (NEGATIVE); CLARITY SL CLOUDY (CLEAR); COLOR YELLOW (YELLOW); GLUCOSE NEGATIVE (NEGATIVE); KETONE NEGATIVE (NEGATIVE); LEUKO ESTERASE 3+ (NEGATIVE); NITRITE NEGATIVE (NEGATIVE); UROBILINOGEN 0.2 E.U./dl (0.2-1.0)
[2019-05-26 22:01] LABS: BACTERIA 3+; WBC 51-100 wbc/hpf (0-5)
[2019-05-26] MEDS ORDERED: AMINOPHYLLIN200 MG PO (23:31)
== END 2019-05-26 23:58 | disposition home or self-care (01) ==
LOC: ED 20:19
PROVIDERS: Nurse Practitioner Family
DX: N39.0 Urinary tract infection, site not specified (principal); R51 Headache; R44.3 Hallucinations, unspecified; F03.90 Unspecified dementia, unspecified severity, without behavioral disturbance, psychotic disturbance, mood disturbance, and anxiety; G89.29 Other chronic pain; I10 Essential (primary) hypertension; K21.9 Gastro-esophageal reflux disease without esophagitis; I25.2 Old myocardial infarction; Z88.8 Allergy status to other drugs, medicaments and biological substances; Z88.6 Allergy status to analgesic agent; Z79.2 Long term (current) use of antibiotics; Z79.82 Long term (current) use of aspirin; Z86.73 Personal history of transient ischemic attack (TIA), and cerebral infarction without residual deficits; Z90.710 Acquired absence of both cervix and uterus

== ENCOUNTER 2019-05-28 02:43 | Emergency (ER) | payer MEDICARE ==
[~2019-05-28] VITALS: Ht 165.1 cm; Wt 70.3 kg
--- NOTE | ~2019-05-28 | EKG ---
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: : 1940 Requested By: GERMAIN PEGUERO Order Number: [id number] Reading MD: Marcus Will MD Measurements Intervals [place] Rate: 76 P: [place]: QRS: -22 QRSD: 87 T: 0 QT: 411 QTc: 463 Interpretive Statements NSR Borderline left axis deviation Abnormal R-wave progression, early transition Borderline T abnormalities, inferior leads Inferior UT age undetermined Compared to ECG 07/05/2018 18:54:14 T-wave abnormality now present Left ventricular hypertrophy no longer present Electronically Signed On 05-29-2019 14:37:17 PST by Marcus Will MD CM:EKGRPT:ELECTROCARDIOGRAM REPORT [id number] GERMAIN GARCIA DRAFT REPORT GERMAIN PEGUERO DO
[~2019-05-28 02:43] MED LIST changes: +ACETAMINOPHEN325 M2 PO; +AMINOPHYLLIN200 MG PO; +AMLODIPINE BES2.5 MG PO; +ASPIR LOW81 MG PO; +CARVEDILOL12.5 MG PO; +Clopidogrel75 MG PO; +FOLTANX RF CAP1 EACH PO; +KLOR-CON M1010 ME1 PO; +LIPITOR40 MG PO; +LYRICA75 M1 PO; +OMEPRAZOLE MAGN20 MG PO; +ONDANSETRON HYDR4 MG PO; +QUETIAPINE FUMA50 M1 PO
[2019-05-28 03:01] LABS: BILIRUBIN NEGATIVE (NEGATIVE); BLOOD NEGATIVE (NEGATIVE); CLARITY CLEAR (CLEAR); COLOR YELLOW (YELLOW); GLUCOSE NEGATIVE (NEGATIVE); KETONE NEGATIVE (NEGATIVE); LEUKO ESTERASE NEGATIVE (NEGATIVE); NITRITE NEGATIVE (NEGATIVE); PH 5.5 (5.0-9.0); UROBILINOGEN 0.2 E.U./dl (0.2-1.0)
[2019-05-28 03:17] LABS: BASO % 0.1 % (0.0-1.0); EOS % 0.1 % (1.0-4.0); HEMATOCRIT 38.7 % (37.0-47.0); HEMOGLOBIN 12.6 g/dl (12.0-16.0); LYMPH # 1.3 10*3/uL (1.3-4.4); LYMPH % 11.5 % (27.0-41.0); MEAN CELL VOLUME 99.7 fl (81.0-99.0); MEAN CORPUSCULAR HGB 32.5 pg (27.0-31.0); MEAN CORPUSCULAR HGB CONC 32.6 g/dl (33.0-37.0); MEAN PLATELET VOLUME 10.5 fl (9.6-12.3); MONO # 0.7 10*3/uL (0.1-1.0); MONO % 6.6 % (3.0-9.0); NEUT % 81.4 % (47.0-73.0); PLATELET COUNT AUTOMATED 210 10*3/uL (130-400); RED BLOOD COUNT 3.88 10*6/uL (4.10-5.10); RED CELL DISTRI WIDTH 13.5 % (0-14.5)
[2019-05-28 03:27] LABS: INTERNATIONAL NORM RATIO 0.9 (2.0-3.5)
[2019-05-28 03:33] LABS: ALBUMIN 3.9 gm/dl (3.1-4.5); ALKALINE PHOSPHATASE 87 U/L (45-117); CHLORIDE 113 mmol/L (98-107); CREATININE 1.19 mg/dL (0.55-1.02); POTASSIUM 3.7 mmol/L (3.5-5.1); SGOT/AST 25 IU/L (3-35); SGPT/ALT 46 U/L (12-78); SODIUM 145 mmol/L (136-145)
[2019-05-28 03:34] LABS: BUN 28 mg/dl (7-24); TROPONIN I < 0.015 ng/ml (<0.045)
[2019-05-28 03:50] VITALS: BP 134/64
[2019-05-28] MEDS ORDERED: SEPTDS PO (07:17)
== END 2019-05-28 07:27 | disposition home or self-care (01) ==
LOC: ED 02:43
PROVIDERS: Emergency Medicine
DX: R41.0 Disorientation, unspecified (principal); R44.1 Visual hallucinations; R44.0 Auditory hallucinations; G89.29 Other chronic pain; I10 Essential (primary) hypertension; I25.2 Old myocardial infarction; K21.9 Gastro-esophageal reflux disease without esophagitis; Z88.8 Allergy status to other drugs, medicaments and biological substances; Z88.6 Allergy status to analgesic agent; Z79.2 Long term (current) use of antibiotics; Z79.899 Other long term (current) drug therapy; Z79.82 Long term (current) use of aspirin; Z86.73 Personal history of transient ischemic attack (TIA), and cerebral infarction without residual deficits

== ENCOUNTER 2019-06-01 15:57 | Inpatient (IN) | payer MEDICARE ==
[~2019-06-01] VITALS: Ht 170.1 cm; Wt 75.7 kg
[~2019-06-01 15:57] MED LIST changes: +SEPTDS PO
--- NOTE | 2019-06-01 16:23 | NUR ---
EPIFANIO TOLLIVER a 79 year old F admitted via wheel chair from the EMERGENCY ROOM as a emergency 72 hr. hold admission. Arrived on unit at 1623. ALLERGIES: OXYCODONE, MEPERIDINE. Vital signs are: 97.8-74-16 129/70. The client signed the following forms with stated understanding: Authorization For The Release of Medical Information, Clothing List, Consent and Release Forms/Receipt of Rights, Acknowledgement of Advance Directive Information, Behavioral Health Consent Form, and Informed Consent of Medications. Ad[facility] the [facility]. A search was conducted and hazardous articles were removed. Client was oriented to the unit. NENO RAINES
[2019-06-01 16:30] VITALS: BP 122/58
[2019-06-01] MEDS ORDERED: SEROQUEL100 MG PO (16:36)
[2019-06-01 16:37] VITALS: BP 122/58
[2019-06-01] MEDS ORDERED: REMERON15 M2 PO (16:37)
--- NOTE | 2019-06-01 16:49 | NUR ---
SPOKE TO DR MADSEN. REVIEWED HOME MEDS VIA TELEPHONE AND DR MADSEN STATED TO KEEP ALL HOME MEDS AT THIS TIME AND TO PLACE CONSULT UNDER HIMSELF.
--- NOTE | 2019-06-01 17:20 | NUR ---
P: VISUAL HALLUCINATIONS: DURING ADMISSION ASSESSEMENT PATIENT STATED "MY SON HAS BEEN HERE THE WHOLE TIME. I CAN SEE FLANNERY AND MY SISTER FEMI." ASKED PATIEINT IF THESE FAMILY MEMBERS ARE STILL LIVING. PATIENT STATED "YES" I: ONE ON ONE FOR EMOTIONAL SUPPORT, REORIENT TO REALITY. R: EFFECTIVE. PATIENT IS ALERT TO PERSON, PLACE, TIME WITH MONTH/YEAR AND SITUATION. ABLE TO VOICE NEEDS. MOOD IS SLIGHTLY DEPRESSED, PLEASANT DEMEANOR. DENIES ANY HI/SI OR PAIN. ADMITS TO HAVING HALLUCINATIONS, SEEING OTHER WHEN TALKING ABOUT HER FAMILY MEMBERS. RESPONSES TO INTERNAL STIMULI. ADMITS TO BEING BEING PARANOID AT TIMES. Q 15 MINUTE SAFETY CHECKS MAINTAINED. 1 PERSON ASSIST-VERBAL CUEING WITH ACTIITIES OF DAILY LIVING, CONTINENT OF BOWEL AND BLADDER. SET UP FOR MEALS, DINNER INTAKE GOOD. SLIGHTLY UNSTEADY AT TIMES. P: CONTINUE TO MONITOR FOR VISUAL HALLUCINATIONS; PROVIDE ONE ON ONE FOR EMOTIONAL SUPPORT AND REORIENT TO REALITY NEEDED.
--- NOTE | 2019-06-01 18:14 | NUR ---
DR. NINA ON UNIT TO ASSESS PATIENT.
[2019-06-01 20:00] VITALS: BP 140/63
--- NOTE | 2019-06-01 23:37 | NUR ---
P-CONFUSION, PARANOID I-REDIRECTION WITH 1:1 THERAPEUTIC INTERVENTIONS AND PRESENT REALITY, EDUCATE AND ENCOURAGE MEDICATION COMPLIANCE R-PATIENT WITH UNSTEADY GAIT WITH AMBULATION. PATIENT PARANOID AT TIMES DUE TO PATIENT'S ROOM MATE RESTLESSNESS. PATIENT HARD OF HEARING. PATIENT MEDICATION COMPLIANT. PATIENT WITH NO HALLUCINATIONS. PATIENT WITH NO SUICIDAL OR HOMICIDAL IDEATIONS. P-CONTINUE TO ENCOURAGE MEDICATION COMPLIANCE, CONTINUE TO PRESENT REALITY, ENCOURAGE GROUP THERAPY WHILE AWAKE
--- NOTE | 2019-06-02 06:10 | NUR ---
PATIENT SLEPT 7 HOURS OF INTERRUPTED SLEEP THROUGHOUT SHIFT. Q 15 MINUTE CHECKS MAINTAINED. 24 HR chart check completed.
[2019-06-02 07:28] LABS: THYROID STIM HORMONE (HS) 0.205 uIU/ml (0.358-4.75)
[2019-06-02 07:56] LABS: VITAMIN D, 25-HYDROXY 19.5 ng/mL (30-100)
[2019-06-02 08:00] VITALS: BP 132/85
--- NOTE | 2019-06-02 08:18 | NUR ---
PHYSICAL THERAPY Screen received as well as orders for Physical Therapy will follow thank you. Ada Hilario PT
--- NOTE | 2019-06-02 08:20 | NUR ---
Occupational therapy orders and nursing screen received. Will follow up with patient for completion of OT evaluation and POC. Thank you. Lamar Odom, OTR/L
--- NOTE | 2019-06-02 08:30 | NUR ---
Treatment Plan meeting was held this a.m. with Dr. Nayak, RN, AT, TROUBLE SHOOTER-S and Ed Case Manager. Plan for discharge Next week. Pt. came to [facility] from [facility]. Will reach out to facility today to discuss discharge Planning.
--- NOTE | 2019-06-02 09:15 | NUR ---
Occupational therapy orders received and OT evaluation completed in full on floor three. Patient precautions include fall risk, confusion, and recent subacute CVA. Per OT eval, OT recommends SNF to increase strength and safety for independent ADLs and functional mobility/transfers. Patient complexity is low, [id number]. Thank you for the referral. Lamar Odom, OTR/L
--- NOTE | 2019-06-02 11:49 | NUR ---
AM GROUP SPENT AN HOUR WITH PT DOING ASSESSMENT. PT CHOSE NOT TO ATTEND MORNING GROUP THERAPY STATING, "I DIDN'T WANT TO COME HERE, I DON'T WANT TO TALK TO A PSYCHIATRIST, BUT I WILL DO WHATEVER I HAVE TO TO GET OUT OF HERE"
--- NOTE | 2019-06-02 15:21 | NUR ---
PHYSICAL THERAPY Cintiakerri completed full details to follow pt moderate complexity level-[id number] PT to work on balance, strengthening safety with amb recomend SNF at discharge thank you. Ada Hilario PT
--- NOTE | 2019-06-02 15:38 | NUR ---
Pt was pleasant during assessment process. Mild cognitive deficits were noted as pt attempted to explain pt's current status and history of hallucinations. Pt plans on returning to her home upon discharge. Pt did give permission for this global technical writer to contact pt's sister Michelle to inquire about any concerns about pt returning home.
--- NOTE | 2019-06-02 15:49 | NUR ---
PM /YADY PT WAS PRESENT FOR AFTERNOON THERAPY BUT CHOSE NOT TO PARTICIPATE. PT SAT AND OBSERVED PEERS AT WORK. PT EXPRESSED NO A. V. HALLUCINATIONS WHILE IN GROUP
[2019-06-02 20:00] VITALS: BP 154/64
--- NOTE | 2019-06-02 20:57 | NUR ---
EVENING/COLOR THERAPY/LEISURE PT ATTENDED AND PARTICIPATED BY WORKING ON A WORDSEARCH. PT PLEASANT AND ON TASK ENTIRE GROUP. PT EXPRESSED NO PARANOIA OR VISUAL HALLUCINATIONS AT THIS TIME. PT WILL CONTINUE TO ATTEND AND PARTICIPATE IN FUTURE GROUP SESSIONS.
--- NOTE | 2019-06-02 23:50 | NUR ---
P-DEPRESSED MOOD I-PROVIDE 1:1 WITH THERAPEUTIC INTERVENTIONS. SUPPORT PROVIDED. ENCOURAGE MEDICATION COMPLIANCE AND EDUCATE. MONITOR SLEEP. P-PATIENT ALERT AND ORIENTED X3. PT STATED DURING 1:1 "I REALLY DIDNT WANT TO BE HERE IN THE FIRST PLACE, IM JUST READY TO GO HOME, IM WORRIED ABOUT MY DOG". SUPPORT PROVIDED WITH POSITIVE EFFECT. PT DENIES SI/HI. PT ALSO DENIES HALLUCINATIONS BUT STATES THAT SHE DID HAVE THEM IN THE PAST BUT HAS NOT HAD THEM LATELY. NO NOTED RESPONDING TO INTERNAL STIMULI. PT MEDICATION COMPLAINT WITHOUT DIFFICULTY AFTER REVIEW. PT RECEIVED PRN ULTRAM REQUESTED AT 2116 FOR C/O OF LOWER BACK PAIN WITH A RATING OF 7/10. NO FURTHER COMPLAINTS OF PAIN NOTED SINCE ADMINISTRATION PRN EFFECTIVE AT THIS TIME. PT CURRENTLY RESTING WITH EYES CLOSED, RESPIRATIONS EASY AND REGULAR, NO SIGNS OR SYMPTOMS OF DISTRESS NOTED. P-CONTINUE TO MONITOR MOOD AND BEHAVIORS. PROVIDE 1:1 WITH THERAPEUTIC INTERVENTIONS. PROVIDE SUPPORT. ENCOURAGE MEDICATION COMPLIANCE AND EDUCATE. MAINTAIN Q 15 MIN CHECKS.
--- NOTE | 2019-06-03 06:06 | NUR ---
PATIENT OBSERVED ON Q 15 MIN CHECKS TO HAVE SLEPT APPROX 5 HOURS THIS SHIFT WITH NO AWAKENINGS OR SIGNS OR SYMPTOMS OF DISTRESS NOTED.
[2019-06-03 07:35] VITALS: BP 115/66
--- NOTE | 2019-06-03 07:45 | NUR ---
PHYSICAL THERAPY Patient seen this am for therapy visit and was just awakening supine in bed upon therapist arrival. OT assistant attorney general was present for observation only this morning as patient identified by name / . Patient voices no new c/o's at this time while transfering supine to sit EOB with Supervision. Patient performed sit to stand transfer, SBA from low bed surface and ambulated SBA, ad janet in hallway, > 100'x 1, demonstrating slow, steay karrie with NBOS, decreased stride. Patient able to take 5-6 backward steps without LOB and reports no visual deficits during gait ex this session. Patient returned to activity room chair at table awaiting breakfast, under [facility] staff Supervision. Will continue per POC as tolerated, total treatment time 14 minutes. Kapil Wade, MANAGER SOFTWARE
--- NOTE | 2019-06-03 07:49 | NUR ---
Patient resting quietly with no c/o discomfort. Respirations easy and regular. Vital signs stable. No overt distress. GIVENS,NENO
--- NOTE | 2019-06-03 08:00 | NUR ---
DR. MADSEN ON UNIT TO ASSESS PATIENT.
--- NOTE | 2019-06-03 08:00 | NUR ---
OT NOTE Pt was seen this A.M. 1:1 for 15 minute OT session with EDUCATION LIAISON and nursing staff present for observation only. Upon arrival pt was supine in bed. Pt identified by name and and had no complaints at this time. Pt transferred supine to sit EOB with SBA followed by functional mobility to the bathroom with SBA for safety. There she transferred on/off standard commode with SBA and then stood sink side while washing her hands with supervision. Functional mobility was then completed to the dining room where she was left sitting upright under [facility] staff supervision. Continue with rec D/C plan to SNF. LAKIA Day/Stephen
--- NOTE | 2019-06-03 08:15 | NUR ---
Treatment Plan meeting was held this a.m. with Dr. Nayak, RN, AT, RADIOGRAPHER ANGIOGRAM-S and Booster Pump Oiler in attendance. Plan for discharge Sunday.
--- NOTE | 2019-06-03 11:53 | NUR ---
AM GROUP PT ATTENDED MORNING GROUP THERAPY BUT REFUSES ANY ACTIVITY OFFERED. PT WAS VERY TALKATIVE AND WOULD APPEAR BORED WHEN NOT TALKING. PT EXPRESSED NO A.V. HALLUCINATIONS WHILE IN GROUP.
--- NOTE | 2019-06-03 15:51 | NUR ---
PM GROUP PT WAS PRESENT FOR AFTERNOON GROUP THERAPY FOR THE FIRST HOUR BUT REFUSES ANY ACTIVITY OFFERED. PT REQUESTED MUSIC AND THEN TOLD THE NURSE THAT IT WAS BOTHERING HER AND ASKED TO LEAVE TO LAY DOWN. PT EXPRESSED NO A.V. HALLUCINATIONS WHILE IN GROUP.
--- NOTE | 2019-06-03 16:10 | NUR ---
Shift chart check completed.
[2019-06-03 20:01] VITALS: BP 146/86
--- NOTE | 2019-06-04 01:59 | NUR ---
NO ADVERSE BEHAVIORS NOTED. PATIENT ALERT AND ORIENTED X3. PT CALM, COOPERATIVE, AND INTERACTIVE THIS HS. PT MEDICATION COMPLIANT WITHOUT DIFFICULTY AFTER REVIEW. PT DENIES SI/HI, HALLUCINATIONS OR PAIN. NO NOTED RESPONDING TO INTERNAL STIMULI. NO PARANOIA/DELUSIONS NOTED. NO PHYSICAL COMPLAINTS VOICED. PT CURRENTLY LAYING DOWN WITH EYES CLOSED. RESPIRATIONS EASY AND REGULAR, NO SIGNS OR SYMPTOMS OF DISTRESS NOTED. PLAN IS TO CONTINUE TO MONITOR MOODS AND BEHAVIORS. PROVIDE 1:1 WITH THERAPEUTIC INTERVENTIONS. ENCOURAGE MEDICATION COMPLIANCE. MAINTAIN Q 15 MIN CHECKS.
--- NOTE | 2019-06-04 06:45 | NUR ---
PATIENT OBSERVED ON Q 15 MIN CHECKS TO HAVE SLEPT APPROX 7 HOURS THIS SHIFT WITH X2 BRIEF AWAKENINGS TO USE THE RESTROOM. NO SIGNS OR SYMPTOMS OF DISTRESS NOTED.
[2019-06-04 07:21] VITALS: BP 129/70
--- NOTE | 2019-06-04 07:45 | NUR ---
OT NOTE Pt was seen this A.M. 1:1 for 15 minute OT session with SERVICE DESK ASSOCIATE and nursing staff present for observation only. Upon arrival pt was supine in bed. Pt identified by name and and had no complaints at this time. Pt transferred supine to sit EOB with SBA. While sitting EOB pt donned B socks with supervision. Sit to stand completed from bed level with SBA followed by functional mobility into the bathroom with SBA. While standing sink side with supervision pt washed her hands and completed hair care. Functional mobility then completed to the dining room with SBA for safety. There she was left sitting upright under [facility] staff supervision. Continue with rec D/C plan to SNF. LAKIA Day/Stephen
[2019-06-04] MEDS ORDERED: NAMENDA-5 PO (08:23)
[2019-06-04] MEDS ORDERED: VITAMIN D5000 UNI1 PO (08:23)
[2019-06-04] MEDS ORDERED: RIVASTIGMINE1 EACH T (08:23)
[2019-06-04] MEDS ORDERED: MIRTAZAPINE15 M2 PO (08:23)
--- NOTE | 2019-06-04 08:32 | NUR ---
PATIENT COMPLAINING OF HEADACHE, RATE PAIN 7/10. PRN TYLENOL 650MG PO GIVEN AT THIS TIME.
--- NOTE | 2019-06-04 09:13 | NUR ---
DR MADSEN ON UNIT TO ASSESS PT. UPDATE PROVIDED TO
--- NOTE | 2019-06-04 11:49 | NUR ---
AM /GREGORY KOVACS PT DID NOT ATTEND MORNING GROUP THERAPY. PT WAS IN BED RESTING. PT IS SET TO BE DISCHARGED FROM THE UNIT TODAY
--- NOTE | 2019-06-04 12:01 | NUR ---
PATIENT IS READY FOR DISCHARGE. PATIENT ASSISTED TO WHEELCHAIR. ALL BELONGING GATHERED AND DISCHARGE INSTRUCTIONS SENT WITH PATIENT OFF UNIT WITH STAFF ASSISTANCE TO PRIVATE VEHICLE.
--- NOTE | 2019-06-04 12:21 | NUR ---
Patient discharging to home today. Follow-up was scheduled with [facility] for psychiatry and Dr Santos, pt's PCP. While at [facility], pt's hallucinations cleared. She was pleasant and cooperative and was able to voice that she wanted to return home rather than a SNF.
--- NOTE | 2019-06-04 14:58 | NUR ---
PHYSICAL THERAPY CO-SIGN I approve of the Physical Therapy notes written above. Ada Hilario PT
--- NOTE | 2019-06-04 15:24 | NUR ---
OCCUPATIONAL THERAPY CO-SIGN I approve of the Occupational Therapy notes written above. Lamar Odom, OTR/L
--- NOTE | 2019-06-10 07:13 | NUR ---
OCCUPATIONAL THERAPY CO-SIGN I approve of the Occupational Therapy notes written above. BRANDEN FARAH OTR/Stephen
== END 2019-06-04 12:01 | disposition home or self-care (01) | DRG 885 ==
LOC: 3N 15:57
PROVIDERS: Registered Nurse; ADMIT Psychiatry & Neurology Psychiatry
DX: F23 Brief psychotic disorder (principal); F33.3 Major depressive disorder, recurrent, severe with psychotic symptoms; I67.9 Cerebrovascular disease, unspecified; D53.9 Nutritional anemia, unspecified; F02.80 Dementia in other diseases classified elsewhere, unspecified severity, without behavioral disturbance, psychotic disturbance, mood disturbance, and anxiety; R51 Headache; M10.9 Gout, unspecified; F41.1 Generalized anxiety disorder; I25.10 Atherosclerotic heart disease of native coronary artery without angina pectoris; Z96.653 Presence of artificial knee joint, bilateral; E66.9 Obesity, unspecified; G89.29 Other chronic pain; R26.2 Difficulty in walking, not elsewhere classified; I10 Essential (primary) hypertension; T07.XXXA Unspecified multiple injuries, initial encounter; X58.XXXA Exposure to other specified factors, initial encounter; Y93.89 Activity, other specified; Y92.89 Other specified places as the place of occurrence of the external cause; Y99.8 Other external cause status; I25.2 Old myocardial infarction; Z86.73 Personal history of transient ischemic attack (TIA), and cerebral infarction without residual deficits; Z90.710 Acquired absence of both cervix and uterus; Z81.1 Family history of alcohol abuse and dependence; Z82.49 Family history of ischemic heart disease and other diseases of the circulatory system; Z88.8 Allergy status to other drugs, medicaments and biological substances; Z88.6 Allergy status to analgesic agent; Z79.899 Other long term (current) drug therapy; Z79.82 Long term (current) use of aspirin; Z79.02 Long term (current) use of antithrombotics/antiplatelets; Z68.27 Body mass index [BMI] 27.0-27.9, adult; G30.9 Alzheimer's disease, unspecified

== ENCOUNTER 2019-07-09 07:41 | Emergency (ER) | payer MEDICARE ==
[~2019-07-09 07:41] MED LIST changes: +MIRTAZAPINE15 M2 PO; +NAMENDA-5 PO; +REMERON15 M2 PO; +RIVASTIGMINE1 EACH T; +SEROQUEL100 MG PO; +VITAMIN D5000 UNI1 PO
[2019-07-09 08:06] LABS: BASO % 0.2 % (0.0-1.0); EOS # 0.2 10*3/uL (0.0-0.4); EOS % 5.3 % (1.0-4.0); HEMATOCRIT 36.1 % (37.0-47.0); HEMOGLOBIN 11.8 g/dl (12.0-16.0); LYMPH # 0.8 10*3/uL (1.3-4.4); LYMPH % 18.4 % (27.0-41.0); MEAN CELL VOLUME 97.8 fl (81.0-99.0); MEAN CORPUSCULAR HGB CONC 32.7 g/dl (33.0-37.0); MEAN PLATELET VOLUME 9.9 fl (9.6-12.3); MONO # 0.4 10*3/uL (0.1-1.0); MONO % 8.7 % (3.0-9.0); NEUT # 2.8 10*3/uL (2.3-7.9); NEUT % 67.2 % (47.0-73.0); PLATELET COUNT AUTOMATED 140 10*3/uL (130-400); RED BLOOD COUNT 3.69 10*6/uL (4.10-5.10); RED CELL DISTRI WIDTH 12.3 % (0-14.5); WHITE BLOOD COUNT 4.1 10*3/uL (4.8-10.8)
[2019-07-09 08:20] LABS: ALKALINE PHOSPHATASE 76 U/L (45-117); BUN 16 mg/dl (7-24); CHLORIDE 113 mmol/L (98-107); CREATININE 1.07 mg/dL (0.55-1.02); POTASSIUM 3.7 mmol/L (3.5-5.1); SGOT/AST 15 IU/L (3-35); SGPT/ALT 21 U/L (12-78); SODIUM 144 mmol/L (136-145); TOTAL PROTEIN 6.5 gm/dL (6.4-8.2)
[2019-07-09 09:03] LABS: BILIRUBIN NEGATIVE (NEGATIVE); BLOOD NEGATIVE (NEGATIVE); CLARITY SL CLOUDY (CLEAR); COLOR YELLOW (YELLOW); GLUCOSE NEGATIVE (NEGATIVE); KETONE TRACE (NEGATIVE); LEUKO ESTERASE 1+ (NEGATIVE); NITRITE NEGATIVE (NEGATIVE); UROBILINOGEN 0.2 E.U./dl (0.2-1.0)
[2019-07-09 09:20] LABS: BACTERIA 2+
[2019-07-09 10:18] VITALS: BP 166/71
[2019-07-09] MEDS ORDERED: SEPTDS PO (11:07)
== END 2019-07-09 11:34 | disposition home or self-care (01) ==
LOC: ED 07:41
PROVIDERS: Emergency Medicine
DX: N39.0 Urinary tract infection, site not specified (principal); R41.82 Altered mental status, unspecified; I10 Essential (primary) hypertension; K21.9 Gastro-esophageal reflux disease without esophagitis; M10.9 Gout, unspecified; Z79.899 Other long term (current) drug therapy; Z79.82 Long term (current) use of aspirin; Z88.6 Allergy status to analgesic agent; Z86.73 Personal history of transient ischemic attack (TIA), and cerebral infarction without residual deficits; Z86.718 Personal history of other venous thrombosis and embolism

== ENCOUNTER 2019-08-24 17:13 | Emergency (ER) | payer MEDICARE ==
[~2019-08-24] VITALS: Ht 170.1 cm; Wt 68.0 kg
[2019-08-24 17:13] VITALS: BP 138/59
[2019-08-24 17:44] LABS: BASO % 0.2 % (0.0-1.0); EOS # 0.2 10*3/uL (0.0-0.4); EOS % 3.9 % (1.0-4.0); HEMATOCRIT 33.9 % (37.0-47.0); HEMOGLOBIN 10.9 g/dl (12.0-16.0); LYMPH % 20.7 % (27.0-41.0); MEAN CELL VOLUME 98.8 fl (81.0-99.0); MEAN CORPUSCULAR HGB 31.8 pg (27.0-31.0); MEAN CORPUSCULAR HGB CONC 32.2 g/dl (33.0-37.0); MEAN PLATELET VOLUME 10.5 fl (9.6-12.3); MONO # 0.4 10*3/uL (0.1-1.0); MONO % 8.5 % (3.0-9.0); NEUT % 66.5 % (47.0-73.0); PLATELET COUNT AUTOMATED 149 10*3/uL (130-400); RED BLOOD COUNT 3.43 10*6/uL (4.10-5.10); RED CELL DISTRI WIDTH 12.7 % (0-14.5); WHITE BLOOD COUNT 4.6 10*3/uL (4.8-10.8)
[2019-08-24 17:59] LABS: ALBUMIN 3.7 gm/dl (3.1-4.5); ALKALINE PHOSPHATASE 66 U/L (45-117); BUN 17 mg/dl (7-24); CHLORIDE 111 mmol/L (98-107); CREATININE 1.16 mg/dL (0.55-1.02); POTASSIUM 3.8 mmol/L (3.5-5.1); SGOT/AST 21 IU/L (3-35); SGPT/ALT 28 U/L (12-78); SODIUM 143 mmol/L (136-145); TOTAL PROTEIN 6.1 gm/dL (6.4-8.2)
[2019-08-24 18:00] LABS: ACETAMINOPHEN (TYLENOL) < 5.0 ug/ml (10-30); ETHYL ALCOHOL < 3.0 mg/dl (<3)
[2019-08-24 18:07] LABS: THYROID STIM HORMONE (HS) 0.664 uIU/ml (0.358-4.75)
[2019-08-24 18:15] LABS: CLARITY SL CLOUDY (CLEAR); COLOR YELLOW (YELLOW); GLUCOSE NEGATIVE (NEGATIVE)
[2019-08-24 18:16] LABS: BILIRUBIN NEGATIVE (NEGATIVE); BLOOD NEGATIVE (NEGATIVE); KETONE NEGATIVE (NEGATIVE); LEUKO ESTERASE NEGATIVE (NEGATIVE); NITRITE NEGATIVE (NEGATIVE); SPECIFIC GRAVITY 1.015 (1.005-1.030); UROBILINOGEN 0.2 E.U./dl (0.2-1.0)
[2019-08-24 18:23] LABS: URINE AMPHETAMINES < 1000 (1000ng/ml); URINE BARBITURATES < 200 (200ng/ml); URINE BENZODIAZEPINES < 200 (200ng/ml); URINE CANNABINOIDS (THC) < 50 (50ng/ml); URINE COCAINE < 300 (300ng/ml); URINE METHADONE < 300 (300ng/ml); URINE OPIATES < 300 (300ng/ml)
[2019-08-24 18:24] LABS: URINE PHENCYCLIDINE < 25 (25ng/ml)
[2019-08-24 18:25] LABS: BACTERIA 2+; EPITHELIAL CELLS 0-2; RBC 0-2 rbc/hpf (0-2); WBC 21-30 wbc/hpf (0-5)
[2019-08-25] MEDS ORDERED: PEPCID20 MG PO (16:59)
[2019-08-25] MEDS ORDERED: LORAZEPAM0.5 MG PO (17:01)
== END 2019-08-24 19:53 | disposition home or self-care (01) ==
LOC: ED 17:13
PROVIDERS: Physician Assistant
DX: R44.1 Visual hallucinations (principal); F32.9 Major depressive disorder, single episode, unspecified; F41.9 Anxiety disorder, unspecified; I10 Essential (primary) hypertension; K21.9 Gastro-esophageal reflux disease without esophagitis; G89.29 Other chronic pain; Z88.8 Allergy status to other drugs, medicaments and biological substances; Z88.6 Allergy status to analgesic agent; Z79.899 Other long term (current) drug therapy; Z79.82 Long term (current) use of aspirin; Z90.710 Acquired absence of both cervix and uterus; Z86.73 Personal history of transient ischemic attack (TIA), and cerebral infarction without residual deficits

== ENCOUNTER 2019-08-25 11:24 | Emergency (ER) | payer MEDICARE ==
[~2019-08-25] VITALS: Ht 170.1 cm; Wt 67.1 kg
[2019-08-25 11:39] VITALS: BP 175/78
[2019-08-25 12:16] LABS: BASO % 0.2 % (0.0-1.0); EOS # 0.2 10*3/uL (0.0-0.4); EOS % 3.3 % (1.0-4.0); HEMATOCRIT 39.7 % (37.0-47.0); HEMOGLOBIN 12.7 g/dl (12.0-16.0); LYMPH # 0.7 10*3/uL (1.3-4.4); LYMPH % 16.2 % (27.0-41.0); MEAN CORPUSCULAR HGB 31.7 pg (27.0-31.0); MEAN PLATELET VOLUME 10.2 fl (9.6-12.3); MONO # 0.2 10*3/uL (0.1-1.0); MONO % 4.6 % (3.0-9.0); NEUT # 3.4 10*3/uL (2.3-7.9); NEUT % 75.3 % (47.0-73.0); PLATELET COUNT AUTOMATED 160 10*3/uL (130-400); RED BLOOD COUNT 4.01 10*6/uL (4.10-5.10); RED CELL DISTRI WIDTH 12.6 % (0-14.5); WHITE BLOOD COUNT 4.5 10*3/uL (4.8-10.8)
[2019-08-25 12:28] LABS: ACT PARTIAL THROMBO TIME 22.8 SECONDS (20.0-32.1); INTERNATIONAL NORM RATIO 0.9 (2.0-3.5)
[2019-08-25 12:32] LABS: ALBUMIN 4.3 gm/dl (3.1-4.5); ALKALINE PHOSPHATASE 80 U/L (45-117); BUN 10 mg/dl (7-24); CHLORIDE 109 mmol/L (98-107); CREATININE 0.97 mg/dL (0.55-1.02); LIPASE 248 U/L (73-393); POTASSIUM 3.8 mmol/L (3.5-5.1); SGOT/AST 19 IU/L (3-35); SGPT/ALT 28 U/L (12-78); SODIUM 142 mmol/L (136-145); TOTAL PROTEIN 7.3 gm/dL (6.4-8.2)
[2019-08-25 12:35] LABS: TROPONIN I < 0.015 ng/ml (<0.045)
[2019-08-25 12:51] LABS: BILIRUBIN NEGATIVE (NEGATIVE); BLOOD NEGATIVE (NEGATIVE); CLARITY CLEAR (CLEAR); COLOR YELLOW (YELLOW); GLUCOSE NEGATIVE (NEGATIVE); KETONE NEGATIVE (NEGATIVE); LEUKO ESTERASE NEGATIVE (NEGATIVE); NITRITE NEGATIVE (NEGATIVE); SPECIFIC GRAVITY 1.005 (1.005-1.030); UROBILINOGEN 0.2 E.U./dl (0.2-1.0)
[2019-08-25] MEDS ORDERED: PEPCID20 MG PO (16:59)
[2019-08-25] MEDS ORDERED: LORAZEPAM0.5 MG PO (17:01)
== END 2019-08-25 16:02 | disposition home or self-care (01) ==
LOC: ED 11:24
PROVIDERS: Emergency Medicine
DX: F23 Brief psychotic disorder (principal); K21.9 Gastro-esophageal reflux disease without esophagitis; G89.29 Other chronic pain; I10 Essential (primary) hypertension; I25.2 Old myocardial infarction; Z86.73 Personal history of transient ischemic attack (TIA), and cerebral infarction without residual deficits; Z88.8 Allergy status to other drugs, medicaments and biological substances; Z88.6 Allergy status to analgesic agent; Z79.899 Other long term (current) drug therapy; Z79.82 Long term (current) use of aspirin; Z90.710 Acquired absence of both cervix and uterus

== ENCOUNTER 2019-08-25 15:01 | Inpatient (IN) | payer MEDICARE ==
[~2019-08-25] VITALS: Ht 170.1 cm; Wt 67.1 kg
[2019-08-25 16:32] VITALS: BP 166/74
[2019-08-25] MEDS ORDERED: PEPCID20 MG PO (16:59)
[2019-08-25] MEDS ORDERED: LORAZEPAM0.5 MG PO (17:01)
[2019-08-25 19:50] VITALS: BP 153/68
[2019-08-26 06:26] LABS: BASO % 0.2 % (0.0-1.0); EOS # 0.2 10*3/uL (0.0-0.4); EOS % 5.1 % (1.0-4.0); HEMATOCRIT 37.8 % (37.0-47.0); HEMOGLOBIN 12.1 g/dl (12.0-16.0); LYMPH % 20.3 % (27.0-41.0); MEAN CELL VOLUME 96.9 fl (81.0-99.0); MEAN PLATELET VOLUME 10.4 fl (9.6-12.3); MONO # 0.4 10*3/uL (0.1-1.0); NEUT # 3.1 10*3/uL (2.3-7.9); NEUT % 65.2 % (47.0-73.0); PLATELET COUNT AUTOMATED 169 10*3/uL (130-400); RED CELL DISTRI WIDTH 12.7 % (0-14.5); WHITE BLOOD COUNT 4.7 10*3/uL (4.8-10.8)
[2019-08-26 06:48] LABS: ALBUMIN 3.9 gm/dl (3.1-4.5); ALKALINE PHOSPHATASE 72 U/L (45-117); BUN 13 mg/dl (7-24); CHLORIDE 111 mmol/L (98-107); HDL CHOLESTEROL 55 mg/dl (40-60); POTASSIUM 3.7 mmol/L (3.5-5.1); SGOT/AST 19 IU/L (3-35); SGPT/ALT 28 U/L (12-78); SODIUM 144 mmol/L (136-145); TOTAL PROTEIN 6.7 gm/dL (6.4-8.2)
[2019-08-26 06:56] LABS: CHOLESTEROL 134 mg/dL (<200); LDL CHOLESTEROL 64 mg/dL (9-159); THYROID STIM HORMONE (HS) 0.847 uIU/ml (0.358-4.75); TRIGLYCERIDES 75 mg/dl (<150); VLDL CHOLESTEROL 15 mg/dL (6-40)
[2019-08-26 07:55] LABS: VITAMIN D, 25-HYDROXY 64.2 ng/mL (30-100)
[2019-08-26 08:00] VITALS: BP 148/55
[2019-08-26 19:38] VITALS: BP 140/65
[2019-08-26 20:23] VITALS: BP 140/65
[2019-08-27 20:00] VITALS: BP 158/92
[2019-08-27 21:30] VITALS: BP 164/84
[2019-08-28 02:05] VITALS: BP 162/80; BP 162/82
[2019-08-28 09:01] VITALS: BP 153/86
[2019-08-28 12:49] LABS: BILIRUBIN NEGATIVE (NEGATIVE); BLOOD NEGATIVE (NEGATIVE); CLARITY CLEAR (CLEAR); COLOR YELLOW (YELLOW); GLUCOSE NEGATIVE (NEGATIVE); KETONE NEGATIVE (NEGATIVE)
[2019-08-28 12:50] LABS: BACTERIA TRACE; LEUKO ESTERASE TRACE (NEGATIVE); MUCOUS TRACE; NITRITE NEGATIVE (NEGATIVE); PH 6.5 (5.0-9.0); UROBILINOGEN 0.2 E.U./dl (0.2-1.0)
[2019-08-28 19:46] VITALS: BP 148/76
[2019-08-29 08:00] VITALS: BP 142/86
[2019-08-29 20:00] VITALS: BP 154/71
[2019-08-30 07:29] VITALS: BP 144/77
[2019-08-30 20:00] VITALS: BP 106/60
[2019-08-31 07:56] VITALS: BP 135/72
[2019-08-31 20:00] VITALS: BP 130/68
[2019-09-01 07:43] VITALS: BP 135/66
[2019-09-01 19:53] VITALS: BP 130/61
[2019-09-02 07:48] VITALS: BP 124/60
[2019-09-02] MEDS ORDERED: ROZEREM8 MG PO (12:30)
[2019-09-02] MEDS ORDERED: RISPERIDONE0.25 M2 PO (12:30)
[2019-09-02] MEDS ORDERED: RISPERIDONE2 M2 PO (12:30)
[2019-09-02] MEDS ORDERED: RIVASTIGMINE TAR3 M1 PO (12:30)
[2019-09-02] MEDS ORDERED: MEMANTINE HCL10 MG PO (12:31)
[2019-09-02 19:48] VITALS: BP 142/57
[2019-09-03 08:00] VITALS: BP 150/68
[2019-09-03 10:35] LABS: BASO % 0.2 % (0.0-1.0); EOS # 0.1 10*3/uL (0.0-0.4); EOS % 2.4 % (1.0-4.0); HEMATOCRIT 37.7 % (37.0-47.0); HEMOGLOBIN 12.4 g/dl (12.0-16.0); LYMPH # 0.9 10*3/uL (1.3-4.4); LYMPH % 17.6 % (27.0-41.0); MEAN CELL VOLUME 95.9 fl (81.0-99.0); MEAN CORPUSCULAR HGB 31.6 pg (27.0-31.0); MEAN CORPUSCULAR HGB CONC 32.9 g/dl (33.0-37.0); MEAN PLATELET VOLUME 10.4 fl (9.6-12.3); MONO # 0.4 10*3/uL (0.1-1.0); MONO % 7.6 % (3.0-9.0); NEUT # 3.6 10*3/uL (2.3-7.9); NEUT % 71.6 % (47.0-73.0); PLATELET COUNT AUTOMATED 150 10*3/uL (130-400); RED BLOOD COUNT 3.93 10*6/uL (4.10-5.10); RED CELL DISTRI WIDTH 12.5 % (0-14.5)
[2019-09-03 11:02] LABS: ALBUMIN 3.7 gm/dl (3.1-4.5); ALKALINE PHOSPHATASE 86 U/L (45-117); BUN 13 mg/dl (7-24); CHLORIDE 108 mmol/L (98-107); CREATININE 0.77 mg/dL (0.55-1.02); POTASSIUM 3.8 mmol/L (3.5-5.1); SGOT/AST 17 IU/L (3-35); SGPT/ALT 34 U/L (12-78); SODIUM 142 mmol/L (136-145); TOTAL PROTEIN 6.6 gm/dL (6.4-8.2)
[2019-09-03 20:00] VITALS: BP 127/70
[2019-09-04 08:00] VITALS: BP 148/74
[2019-09-04 20:00] VITALS: BP 116/66; BP 119/72
[2019-09-05] MEDS ORDERED: RISPERIDONE3 M2 PO (07:17)
[2019-09-05 08:00] VITALS: BP 119/60
== END 2019-09-05 13:01 | disposition home or self-care (01) | DRG 885 ==
LOC: 3N 15:01
PROVIDERS: Counselor Professional; ADMIT Psychiatry & Neurology Psychiatry
DX: F33.3 Major depressive disorder, recurrent, severe with psychotic symptoms (principal); F23 Brief psychotic disorder; F02.81 Dementia in other diseases classified elsewhere, unspecified severity, with behavioral disturbance; K22.8 Other specified diseases of esophagus; K52.831 Collagenous colitis; G30.9 Alzheimer's disease, unspecified; I10 Essential (primary) hypertension; M1A.9XX0 Chronic gout, unspecified, without tophus (tophi); F41.1 Generalized anxiety disorder; Z96.653 Presence of artificial knee joint, bilateral; I25.2 Old myocardial infarction; Z86.73 Personal history of transient ischemic attack (TIA), and cerebral infarction without residual deficits; Z90.710 Acquired absence of both cervix and uterus; Z88.5 Allergy status to narcotic agent; Z79.899 Other long term (current) drug therapy; Z82.49 Family history of ischemic heart disease and other diseases of the circulatory system; Z81.1 Family history of alcohol abuse and dependence; Z79.82 Long term (current) use of aspirin

== ENCOUNTER 2019-09-07 15:34 | Emergency (ER) | payer MEDICARE ==
[~2019-09-07] VITALS: Ht 170.1 cm; Wt 64.9 kg
[~2019-09-07 15:34] MED LIST changes: +LORAZEPAM0.5 MG PO; +MEMANTINE HCL10 MG PO; +PEPCID20 MG PO; +RISPERIDONE0.25 M2 PO; +RISPERIDONE2 M2 PO; +RISPERIDONE3 M2 PO; +RIVASTIGMINE TAR3 M1 PO; +ROZEREM8 MG PO
[2019-09-07 15:57] VITALS: BP 169/80
[2019-09-07 16:06] LABS: BILIRUBIN NEGATIVE (NEGATIVE); BLOOD TRACE-INTACT (NEGATIVE); CLARITY CLEAR (CLEAR); COLOR YELLOW (YELLOW); GLUCOSE NEGATIVE (NEGATIVE); KETONE NEGATIVE (NEGATIVE); LEUKO ESTERASE NEGATIVE (NEGATIVE); NITRITE NEGATIVE (NEGATIVE); PH 8.5 (5.0-9.0); SPECIFIC GRAVITY 1.015 (1.005-1.030); UROBILINOGEN 0.2 E.U./dl (0.2-1.0)
[2019-09-07 16:07] LABS: BASO % 0.2 % (0.0-1.0); EOS # 0.2 10*3/uL (0.0-0.4); EOS % 2.5 % (1.0-4.0); HEMOGLOBIN 14.6 g/dl (12.0-16.0); LYMPH # 0.8 10*3/uL (1.3-4.4); LYMPH % 12.8 % (27.0-41.0); MEAN CELL VOLUME 97.2 fl (81.0-99.0); MEAN CORPUSCULAR HGB 31.5 pg (27.0-31.0); MEAN CORPUSCULAR HGB CONC 32.4 g/dl (33.0-37.0); MEAN PLATELET VOLUME 10.4 fl (9.6-12.3); MONO # 0.3 10*3/uL (0.1-1.0); MONO % 5.2 % (3.0-9.0); NEUT % 78.8 % (47.0-73.0); PLATELET COUNT AUTOMATED 169 10*3/uL (130-400); RED BLOOD COUNT 4.63 10*6/uL (4.10-5.10); RED CELL DISTRI WIDTH 12.8 % (0-14.5); WHITE BLOOD COUNT 6.4 10*3/uL (4.8-10.8)
[2019-09-07 16:07] LABS: BACTERIA 1+; RBC 0-2 rbc/hpf (0-2)
[2019-09-07 16:08] LABS: URINE AMPHETAMINES < 1000 (1000ng/ml); URINE BARBITURATES < 200 (200ng/ml); URINE BENZODIAZEPINES < 200 (200ng/ml); URINE CANNABINOIDS (THC) < 50 (50ng/ml); URINE COCAINE < 300 (300ng/ml); URINE METHADONE < 300 (300ng/ml); URINE OPIATES < 300 (300ng/ml)
[2019-09-07 16:09] LABS: URINE PHENCYCLIDINE < 25 (25ng/ml)
[2019-09-07 16:19] LABS: INTERNATIONAL NORM RATIO 0.9 (2.0-3.5)
[2019-09-07 16:22] LABS: ALBUMIN 4.5 gm/dl (3.1-4.5); ALKALINE PHOSPHATASE 114 U/L (45-117); BUN 22 mg/dl (7-24); CHLORIDE 105 mmol/L (98-107); CREATININE 1.14 mg/dL (0.55-1.02); POTASSIUM 3.4 mmol/L (3.5-5.1); SGOT/AST 33 IU/L (3-35); SGPT/ALT 43 U/L (12-78); SODIUM 142 mmol/L (136-145); TOTAL PROTEIN 8.2 gm/dL (6.4-8.2)
[2019-09-07 16:30] LABS: ACETAMINOPHEN (TYLENOL) < 5.0 ug/ml (10-30); ETHYL ALCOHOL < 3.0 mg/dl (<3); TROPONIN I < 0.015 ng/ml (<0.045)
== END 2019-09-07 17:57 | disposition admitted as inpatient to this hospital (09) ==
LOC: ED 15:34
PROVIDERS: Emergency Medicine
DX: F23 Brief psychotic disorder (principal); I10 Essential (primary) hypertension; M10.9 Gout, unspecified; K21.9 Gastro-esophageal reflux disease without esophagitis; R79.1 Abnormal coagulation profile; Z88.6 Allergy status to analgesic agent; Z79.899 Other long term (current) drug therapy; Z79.82 Long term (current) use of aspirin; Z86.73 Personal history of transient ischemic attack (TIA), and cerebral infarction without residual deficits

== ENCOUNTER 2019-09-07 18:06 | Inpatient (IN) | payer MEDICARE ==
[~2019-09-07] VITALS: Ht 170.1 cm; Wt 64.9 kg
[2019-09-07 18:33] VITALS: BP 152/85
[2019-09-07 18:35] VITALS: BP 152/85
--- NOTE | 2019-09-07 18:37 | NUR ---
EPIFANIO TOLLIVER a 79 year old F admitted via wheel chair from the ADMITTING as a emergency 72 hr. hold admission. Arrived on unit at 1822. ALLERGIES: OXYCODONE, MEPERIDONE. Vital signs are: 97.6-98-17 152/85. THE PT IS PINK SLIPPED. NO PAPERWORK SIGNED AT THIS TIME. Admitted under the services of Dr. VICKEY ARGUETAJOHN. A search was conducted and hazardous articles were removed. Client was oriented to the unit. NENO RAINES
--- NOTE | 2019-09-07 18:41 | NUR ---
DR PAZ UPDATED ON NEW PT. NO NEW ORDERS AT THIS TIME.
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
[2019-09-07 20:00] VITALS: BP 145/74
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
--- NOTE | 2019-09-08 05:45 | NUR ---
PATIENT SLEPT 1 HOUR OF INTERRUPTED SLEEP THROUGHOUT SHIFT. Q 15 MINUT CHECKS MAINTAINED. 24 HR chart check completed. NO CHANGES IN SKIN INTEGRITY THIS SHIFT. DR HUMPHREY TO REVIEW HOME MEDICATIONS TO CONTINUE MEDICATIONS
[2019-09-08 06:12] LABS: BASO % 0.1 % (0.0-1.0); EOS # 0.1 10*3/uL (0.0-0.4); EOS % 1.3 % (1.0-4.0); HEMATOCRIT 41.3 % (37.0-47.0); HEMOGLOBIN 13.3 g/dl (12.0-16.0); LYMPH # 1.2 10*3/uL (1.3-4.4); LYMPH % 17.8 % (27.0-41.0); MEAN CELL VOLUME 95.8 fl (81.0-99.0); MEAN CORPUSCULAR HGB 30.9 pg (27.0-31.0); MEAN CORPUSCULAR HGB CONC 32.2 g/dl (33.0-37.0); MEAN PLATELET VOLUME 10.1 fl (9.6-12.3); MONO # 0.7 10*3/uL (0.1-1.0); MONO % 9.5 % (3.0-9.0); NEUT # 4.9 10*3/uL (2.3-7.9); PLATELET COUNT AUTOMATED 171 10*3/uL (130-400); RED BLOOD COUNT 4.31 10*6/uL (4.10-5.10); RED CELL DISTRI WIDTH 12.7 % (0-14.5)
[2019-09-08 06:19] LABS: BUN 21 mg/dl (7-24); CHLORIDE 108 mmol/L (98-107); CHOLESTEROL 192 mg/dL (<200); CREATININE 1.03 mg/dL (0.55-1.02); POTASSIUM 3.6 mmol/L (3.5-5.1); SGOT/AST 23 IU/L (3-35); SGPT/ALT 35 U/L (12-78); SODIUM 143 mmol/L (136-145); TOTAL PROTEIN 7.3 gm/dL (6.4-8.2); TRIGLYCERIDES 68 mg/dl (<150); VLDL CHOLESTEROL 14 mg/dL (6-40)
[2019-09-08 06:27] LABS: ALKALINE PHOSPHATASE 95 U/L (45-117); HDL CHOLESTEROL 75 mg/dl (40-60); LDL CHOLESTEROL 103 mg/dL (9-159)
[2019-09-08 07:56] LABS: VITAMIN D, 25-HYDROXY 56.4 ng/mL (30-100)
[2019-09-08 08:00] VITALS: BP 142/78
--- NOTE | 2019-09-08 09:40 | NUR ---
TREATMENT PLAN MEETING WAS HELD WITH LUIS FELIPE AYERS, RN, AT, SYSTEMS SECURITY ANALYST-S AND SUSTAINMENT LOGISTICS ANALYST. PLAN FOR DISCHARGE NEXT WEEK. PT. AT THIS POINT WILL RETURN HOME.
--- NOTE | 2019-09-08 11:07 | NUR ---
Pt's neighbor Tasha Aragon phoned this publications writer to express concern about pt. Informed Tasha that this publications writer would not be able to provide any pt information to Tasha, who voiced understanding of this. Tasha stated that she and her are very concerned about pt. She stated that on Sunday, Tahsa went to check on pt. Tasha could see pt in the window but pt would not answer the door and the door was locked. Tasha believes that pt did not receive her new prescriptions and that pt was taking her medications incorrectly. Tasha stated that pt has been struggling for a while now and that pt has no family to rely on. She also confirmed that pt's dog is safe. Tasha stated that pt's dog was in pt's trailer. Tasha was concerned that something was wrong with pt because pt's lights were on in her trailer late Sunday night. She went over and found the door unlocked. Tasha then tried numerous times to reach pt's sister Michelle before finally getting her. Michelle stated that the police had called her and that pt was taken to the hospital. Tasha then returned to pt's trailer to find her dog and care for him.
--- NOTE | 2019-09-08 11:21 | NUR ---
Spoke to Antonina Lui of [facility] and discussed events which led to pt's current admission.
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
--- NOTE | 2019-09-08 13:50 | NUR ---
PARKER MORALES CNP ON UNIT TO ASSESS PATIENT.
--- NOTE | 2019-09-08 15:11 | NUR ---
Shift chart check completed.
--- NOTE | 2019-09-08 15:41 | NUR ---
PHYSICAL THERAPY Screen received spoke with [facility] staff pt is from home and having more balance issues, hx of falls to put in PT eval for assessment. Ada Hilario PT
--- NOTE | 2019-09-08 15:46 | NUR ---
Nursing screen received and chart reviewed. Patient admitted from home. Per nursing, patient has a history of falls and per chart review is unable to attend to her ADLs. Please send OT orders for an evaluation. thank you. Lamar Odom OTR/L
[2019-09-08 19:36] VITALS: BP 113/53
--- NOTE | 2019-09-08 21:21 | NUR ---
24 HR chart check completed.
--- NOTE | 2019-09-08 21:46 | NUR ---
P-C/O POOR SLEEP, MEMORY GAPS, PARANOID STATEMENTS I-PROVIDE VERBAL 1:1 FOR EMOTIONAL SUPPORT, ADMINISTER MEDS, MONITOR SLEEP R-PT IS VERY PLEASANT THIS EVENING. ALMOST ELATED. ALERT & ORIENTED X 4 WITH BRIEF MEMORY GAPS. PT AWARE THAT SHE JUST LEFT THE FACILITY A COUPLE DAYS AGO. STATED THAT SHE COULDN'T GET HER MEDICATIONS AFTER SHE WAS DISCHARGED. DID VOICE VAGUE PARANOID FEELINGS ABOUT HER NEIGHBOR. STATED THAT HER DOG WAS FOUND & HE SLIPPED OUT OF THE HOUSE WHEN SHE OPENED THE DOOR. TALKED FONDLY ABOUT HER DOG & STATED SHE GOT HIM FROM A RESCUE FACILITY. 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 MILD MEMORY GAPS FOR VERY BRIEF PERIODS. ATE SNACK. COMPLIANT TAKING MEDS WHOLE. DID C/O POOR SLEEP. P-CONTINUE TO MONITOR & PROVIDE EMOTIONAL SUPPORT NEEDED.
--- NOTE | 2019-09-09 06:09 | NUR ---
PT SLEPT PAST 230
[2019-09-09 08:06] VITALS: BP 115/67
--- NOTE | 2019-09-09 09:00 | NUR ---
TREATMENT PLAN MEETING WAS HELD WITH DR. HURD, LUIS FELIPE AYERS, RN, AT, PAYROLL ACCOUNTING SPECIALIST-S AND BRICK AND BLOCKER AID LABOR. PLAN FOR DISCHARGE NEXT WEEK. COMPETENCY EVALUATION IS ORDERED. DR. HURD RECOMMENDS PLACEMENT.
--- NOTE | 2019-09-09 15:37 | NUR ---
PM GROUP/CRAFTS PT WAS PRESENT FOR AFTERNOON GROUP THERAPY RESTING IN A COMFY CHAIR AT THE BACK OF THE ROOM. PT SLEPT MOST OF THE TIME.
--- NOTE | 2019-09-09 16:10 | NUR ---
PATIENT IS ALERT AND ORIENTED TO PERSON, PLACE, TIME AND SITUATION; ABLE TO VOICE NEEDS. MEMORY GAPS NOTED. MOOD IS DEPRESSED. DENIES ANY HALLUCINATIONS, DELUSIONS, HI/SI OR PAIN. MEDICAITON COMPLAINT WITH EDUCATION PROVIDED. Q 15 MINUTE SAFETY CHECKS MAINTAINED. 1 PERSON VERBAL CUEING WITH ACTIVITIES OF DAILY LIVING, CONTINENT OF BOWEL AND BLADDER, SET UKP FOR MEALS, INTAKES ARE GOOD WITH ADEQUATE FLUIDS. AMBULATORY WITH STEADY GAIT. NO HALLUCINATIONS /DELUSION OR AGGRESSION OBSERVED. INTERACTIVE WITH STAFF AND PARTICIPATED IN MORNING GROUP SESSION. CONTINUE TO MONITOR FOR HALLUCINATIONS, WONDERING OR AGGRESSION. PROVIDE ONE ON ONE AND REDIRECTION NEEDED.
[2019-09-09 19:40] VITALS: BP 113/68
--- NOTE | 2019-09-09 19:52 | NUR ---
24 HR chart check completed.
--- NOTE | 2019-09-09 21:42 | NUR ---
P-DEPRESSED MOOD I-PROVIDE VERBAL 1:1 FOR EMOTIONAL SUPPORT, ADMINISTER MEDS, MONITOR SLEEP R-PLEASANT INTERACTIONS WITH STAFF & SELECT PEERS. ALERT & ORIENTED X 4 WITH BRIEF MEMORY GAPS. NO PARANOID STATEMENTS VOICED. ATE SNACK. COMPLIANT TAKING MEDS WHOLE. P-CONTINUE TO MONITOR & PROVIDE EMOTIONAL SUPPORT NEEDED.
--- NOTE | 2019-09-10 06:13 | NUR ---
PT HAS SLEPT FOR 8 HOURS
--- NOTE | 2019-09-10 07:30 | NUR ---
Occupational Therapy evaluation completed on three with full evaluation to follow. Recommend occupational therapy per plan of care and an assisted living facility upon discharge. If refused, home with SN, OT, and PT with 29/01 supervision assistance. Thank you for this referral. Lamar Odom OTR/L
--- NOTE | 2019-09-10 07:40 | NUR ---
Physical Therapy evaluation completed full evaluation to follow. Recommend physical therapy per plan of care and assisted living with PT/OT upon discharge. If pt to return home would recomend home w family/24 hr care/support with HH and services. Thank you for this referral. Ada Hilario PT
[2019-09-10 07:42] VITALS: BP 125/61
--- NOTE | 2019-09-10 10:05 | NUR ---
Spoke with Antonina Lui of [facility] Adult Protective Services. Informed her of Raeann Baxter PhD evaluation of pt. Discussed pt's current status and asked Antonina for her thoughts about pt's discharge plan. Antonina stated that she would be comfortable with pt returning to her home with VNA and Antonina following up with her. Informed Dr Nayak of this during today's treatment team meeting.
--- NOTE | 2019-09-10 10:39 | NUR ---
TREATMENT PLAN MEETING WAS HELD WITH DR. HURD, LUIS FELIPE AYERS, RN, AT, AREA FORESTER-S AND DROP SHIPMENT CLERK. PLAN FOR DISCHARGE SUNDAY. PT. WILL RETURN HOME AND APS TO FOLLOW.
--- NOTE | 2019-09-10 11:37 | NUR ---
AM GROUP/MUSIC AND ART PT WAS PRESENT FOR MORNING GROUP THERAPY AND PARTICIPATED BY READING THE NEWSPAPER AND TALKING WITH HER NURSE. PT WAS QUIET AND EXPRESSED NO PARANOIA OR HALLUCINATIONS WHILE IN GROUP
--- NOTE | 2019-09-10 15:36 | NUR ---
PM GROUP/CRAFTS PT WAS PRESENT FOR AFTERNOON GROUP THERAPY BUT CHOSE NOT TO PARTICIPATE. PT SLEPT FOR MOST OF THE TIME
--- NOTE | 2019-09-10 16:04 | NUR ---
Spoke with pt's sister/DPOAHC Michelle Bustillos and discussed holding a family meeting. Michelle requests that this automobile and property underwriter speak to Michelle's daughter Corrie about pt's status, discharge plan, and the possibility of scheduling a meeting when Corrie can be present. Attempted to reach Corrie by phone.
[2019-09-10 19:27] VITALS: BP 140/64
--- NOTE | 2019-09-10 19:35 | NUR ---
P: DEPRESSED MOOD AND TEARFUL AT TIMES. I: ONE ON ONE FOR EMOTIONAL SUPPORT AND ENCOURAGE GROUP ACTIVITIES. R: EFFECTIVE. PATIENT IS ALERT AND ORIENTED TO PERSON, PLACE, TIME AND SITUATION; ABLE TO VOICE NEEDS. MEMORY GAPS NOTED. MOOD IS DEPRESSED AND TEARFUL AT TIME. DENIES ANY HALLUCINATIONS, DELUSIONS, HI/SI OR PAIN. MEDICAITON COMPLAINT WITH EDUCATION PROVIDED. Q 15 MINUTE SAFETY CHECKS MAINTAINED. 1 PERSON VERBAL CUEING WITH ACTIVITIES OF DAILY LIVING, CONTINENT OF BOWEL AND BLADDER, SET UKP FOR MEALS, INTAKES ARE GOOD WITH ADEQUATE FLUIDS. AMBULATORY WITH STEADY GAIT. NO HALLUCINATIONS /DELUSION OR AGGRESSION OBSERVED. INTERACTIVE WITH STAFF AND PARTICIPATED IN MORNING GROUP SESSION. P: CONTINUE TO MONITOR FOR HALLUCINATIONS, WONDERING OR AGGRESSION. PROVIDE ONE ON ONE AND REDIRECTION NEEDED.
--- NOTE | 2019-09-10 21:05 | NUR ---
PT IN DINING ROOM WITH PEERS. NO c/o discomfort. Respirations easy and regular. Vital signs stable. No overt distress. TRISTEN SHEPPARD
--- NOTE | 2019-09-11 00:11 | NUR ---
PT APPEARS SOMEWHAT DEPRESSED. ANXIOUS ABOUT POSTDISCHARGE PLANS PT PROVIDED WITH MUCH EMOTIONAL SUPPORT AND 1:1. PT IS ALERT, ORIENTED X 4. DENIES HALLUCINATIONS. NO DELUSIONS PRESENT AT THIS TIME. PT IS ABLE TO DISCUSS AND RECALL THAT SHE HAD GONE HOME ON SUNDAY AND SHE STATES SHE DID NOT TAKE TWO OF HER MEDICATIONS. PT STATES "I WOULD HAVE TAKEN THEM IF I HAD THEM, BUT I KNOW I DIDN'T". PT STATES SHE THOUGHT HER NEIGHBOR WAS DRIVING HER TO SEE PRESIDENT DAMIAN IN [place]. PT ABLE TO STATE THAT THIS WAS NOT THE CASE, AND SHE WAS HALLUCINATING. PT STATES THAT SHE WOULD BE HAPPY TO HAVE VISITING NURSES OR HOME HEALTH UPON DISCHARGE. STATES "THEY TOLD ME ALL I NEED TO DO IS GIVE HER A [place]. I CAN DO THAT. I WILL TAKE IT FROM THAT NEIGHBOR THAT I DON'T LIKE". PT IS MEDICATION COMPLIANT, STATES SHE FEELS THAT SHE IS DOING MUCH BETTER THAN HER LAST ADMISSION. WILL CONTINUE TO MONITOR PT FOR HALLUCINATIONS AND DELUSIONS. WILL CONTINUE TO ENCOURAGE MEDICATION COMPLIANCE. Q 15 MIN MONITORING PER POLICY.
--- NOTE | 2019-09-11 05:29 | NUR ---
PT SLEPT 5.5 HOURS THIS SHIFT
--- NOTE | 2019-09-11 07:10 | NUR ---
PHYSICAL THERAPY Patient seen this am for therapy visit and was just awakening supine in bed upon therapist arrival. Patient identified by name / and voices no new c/o's at this time. OT preschool assistant principal was also present for observation this session as patient transfers supine to sit EOB. Patient needed a minute or so to fully awaken prior to completing sit to stand, then ambulated ad janet in hallway, no AD, > 200'x 1, demonstating even stride and good karrie. Patient was Independent with all transfers and distant Supervision for gait ex. Patient also able to complete several standing balance ex including eyes open / closed, retro walk, picking up object from floor, all without LOB. Patient tolerated approx 3 seconds single leg stance, each side L - R before LOB and returned to activity room chair under [facility] staff Supervison. Will continue per POC as tolerated, total treatment time 16 minutes. Kapil Wade, SPOUT LINER HELPER
--- NOTE | 2019-09-11 07:25 | NUR ---
OT NOTE Prior to coming to floor spoke with charge nurse Lilian and reported that therapy was coming to treat this pt. Pt was seen this A.M. 1:1 for 25 minute OT session with CARD BOXER and nursing staff present for observation only. Upon arrival pt was supine in bed. Pt identified by name and and had no complaints at this time. Pt transferred supine to sit EOB with distant supervision. While sitting EOB pt donned B socks with distant supervision. Pt then completed sit to stand from bed level followed by functional mobility around the room with supervision while gathering supplies from various surface needed for ADL task. Pt then transferred on/off standard commode with distant supervision and completed toileting task with distant supervision. Pt then stood sink side while washing her hands, face, and completing hair care with distant supervision. Functional mobility was then completed to the dining roberson where she was left sitting upright under [facility] staff supervision. Continue with POC as able. BERYL Day
[2019-09-11 07:32] VITALS: BP 138/78
--- NOTE | 2019-09-11 09:00 | NUR ---
TREATMENT PLAN MEETING WAS HELD WITH DR. HURD, RN, AT, CLAIM APPROVER-S AND WASTEWATER TREATMENT PLANT SUPERVISOR. PLAN FOR DISCHARGE SUNDAY. PT. WILL RETURN HOME WITH APS TO FOLLOW.
--- NOTE | 2019-09-11 11:04 | NUR ---
DR HERRERA AND DR PAZ ON UNIT TO ASSESS PT, UPDATE PROVIDED, PTR IS CURRENTLY IN THE SHOWER, WILL RETURN AT A LATER TIME.
--- NOTE | 2019-09-11 12:05 | NUR ---
DR PAZ ON UNIT TO ASSESS PT, UPDATE PROVIDED.
--- NOTE | 2019-09-11 15:12 | NUR ---
Spoke with pt's sister/DPOAHC Michelle Bustillos and discussed pt's discharge that is scheduled for tomorrow. Met with pt individually. Discussed pt's discharge. Reviewed the discharge plan. Pt is agreeable to VNA and to meds being in a pill pack. Presented scenarios for when pt is at home. Pt was able to problem solve. Pt also stated that she has a security system on her windows and doors, which eases her mind. Reconfirmed with pt the importance of medication compliance and allowing the VNA into her home. Pt voiced understanding. Also, informed pt that the planner intern is working on getting pt's meds delivered to [facility] prior to pt's discharge to assure that pt has her meds for home.
--- NOTE | 2019-09-11 15:37 | NUR ---
PM GROUP PT WAS PRESENT FOR AFTERNOON GROUP THERAPY BUT DID NOT PARTICIPATE IN THE ACTIVITIES. PT WAS MUCH MORE SOCIABLE AND DISCUSSION WAS ON TOPIC AND RELEVENT. PT EXPRESSED NO HALLUCINATIONS OR DELUSIONS WHILE IN GROUP
--- NOTE | 2019-09-11 15:58 | NUR ---
ATTEMPTING TO WORK WITH PATIENT PHARMACY TO OBTAIN MEDICATIONS FOR AT HOME WITH BLISTER PACKS. PROVIDED [facility] MEDICATION LIST. PT. HAS A $219.64 CO PAY WHICH WOULD BE DUE BEFORE SHE WOULD RECEIVE THE MEDICATIONS. TRIED TO GET MEDICATIONS DELIVERED TO THE HOSPITAL SO THAT PATIENT WOULD HAVE THE MEDICATIONS BUT PHARMACY HAS TO HAVE MEDICATIONS PAID FOR PRIOR TO DELIVERY.
[2019-09-11 20:09] VITALS: BP 143/62
--- NOTE | 2019-09-12 01:31 | NUR ---
P-MEDICATION NON-COMPLIANCE I-PROVIDED 1:1 WITH THERAPEUTIC INTERVENTIONS. ENCOURAGED MEDICATION COMPLIANCE AND EDUCATED. R-"IM NOT TAKING THAT LIPITOR, I THINK ITS THAT'S WHAT IS CAUSING ALL THIS IN THE FIRST PLACE". PT REFUSED HS LIPITOR AND REFUSED TO PARTICIPATE IN MEDICATION EDUCATION, STATES SHE WILL TALK TO THE DOCTOR IN THE MORNING. PT COMPLIANT WITH REMAINING HS MEDICATIONS WITHOUT DIFFICULTY. PT ALERT AND ORIENTED X4, CALM, INTERACTIVE. PT AMBULATORY WITH A STEADY GAIT, INDEPENDENT IN ADL'S. PT DENIES SI/HI, HALLUCINATIONS, OR PAIN. NO PARANOIA/DELUSIONS NOTED. PT CURRENTLY LAYING DOWN WITH EYES CLOSED, RESPIRATIONS EASY AND REGULAR, NO SIGNS OR SYMPTOMS OF DISTRESS NOTED. P-CONTINUE TO MONITOR MOOD AND BEHAVIORS. MAINTAIN Q 15 MIN SAFETY CHECKS AND PRN FOR SAFETY. MONITOR SLEEP.
--- NOTE | 2019-09-12 03:57 | NUR ---
24 HOUR CHART CHECK COMPLETED.
--- NOTE | 2019-09-12 06:03 | NUR ---
PATIENT OBSERVED ON Q 15 MIN CHECKS TO HAVE SLEPT APPROX 6 HOURS WITH X1 FIELD APPRAISER AWAKENING DUE TO HER ROOM MATE. NO SIGNS OR SYMPTOMS OF DISTRESS NOTED.
--- NOTE | 2019-09-12 07:10 | NUR ---
PHYSICAL THERAPY Patient seen this am for therapy visit and was standing near her bed upon therapist arrival. Patient identified by name / and reports no new c/o's at this time. OT purchasing administrative assistant was present for observation only this session as patient ambulated ad janet in hallway, no AD, demonstrating no LOB and good karrie. Patient Independent with all transfers and mobility and returned to activity room chair awaiting breakfast, under [facility] staff Supervision. Total gait distance > 200'x 1. Will continue per POC to improve dynamic standing balance / activity tolerance, total treatment time 14 minutes. Kapil Wade, FLATBED PRESS OPERATOR
--- NOTE | 2019-09-12 07:23 | NUR ---
OT NOTE Prior to coming to floor spoke with charge nurse Lilian and reported that therapy was coming to treat this pt. Pt was seen this A.M. 1:1 for 23 minute OT session with [facility] and [facility] staff present for observation only. Upon arrival pt was standing upright in the room. Pt identified by name and and had no complaints at this time. Pt sat EOB while talking with therapist and then completed sit to stand from bed level with distant supervision. Pt completed home making task consisting of making her bed with distant supervision. She then gathered clothing and hair brush and completed functional mobility into the bathroom with distant supervision. There she completed toileting task, UB dressing, and grooming task at sink with distant supervision. Challenged pt's dynamic standing tolerance needed for increased I and enhanced endurance and pt was able to tolerate aprox 10 minutes before sitting due to fatigue. Pt was left sitting upright in the dining roberson under [facility] staff supervision. Continue with POC as able. BERYL Day
[2019-09-12 07:40] VITALS: BP 143/70
--- NOTE | 2019-09-12 09:00 | NUR ---
TREATMENT PLAN MEETING WAS HELD WITH LUIS FELIPE AYERS, RN, AT, REGULATORY AFFAIRS CONSULTANT-S AND PATRON ATTENDANT. PLAN FOR DISCHARGE TODAY. PT. WILL RETURN HOME WITH FOLLOW UP APPOINTMENTS ARRANGED. [facility] TO FOLLOW PATIENT AT HOME. MEDICATIONS ORDERED THROUGH [facility] AND BLISTER PACKS WILL BE DELIVERED TODAY. ALSO MY MED PACK WILL FOLLOW WITH PATIENT ONCE HOME TO MANAGE MEDICATIONS, SPOKE WITH ROBERTA JOHNSON [phone].
[2019-09-12] MEDS ORDERED: RISPERIDONE3 M2 PO (09:28)
[2019-09-12] MEDS ORDERED: ROZEREM8 MG PO (09:28)
[2019-09-12] MEDS ORDERED: RIVASTIGMINE TAR6 M1 PO (09:28)
[2019-09-12] MEDS ORDERED: RISPERIDONE0.25 M2 PO (09:28)
[2019-09-12] MEDS ORDERED: MEMANTINE HCL10 MG PO (09:28)
[2019-09-12] MEDS ORDERED: VITAMIN D3125 MC1 PO (09:28)
--- NOTE | 2019-09-12 10:57 | NUR ---
With pt's permission, this continuity writer spoke with pt's niece Corrie Qiu about obtaining pt's money to pay for pt's prescritions so that meds can be delivered to [facility] prior to pt discharging. Corrie stated that she would stop by the pharmacy and pay for pt's meds. Corrie asked about pt's discharge plan. Informed her that [facility] will be following pt, as well as Adult Protective Services. Discussed pt's presriptions being prepackaged in the packs to prevent med confusion. Corrie inquired about guardianship. Educated Corrie about this. Phoned Antonina Lui of [facility] Adult Protective Services and informed her of pt's discharge and VNA service in place for pt. Provided Antonina with Corrie's phone number. Met with pt and confirmed the discharge plan with her. Pt stated that she is attempting to reach a friend to provide pt's transportation home.
--- NOTE | 2019-09-12 11:51 | NUR ---
AM GROUP PT ATTENDED MORNING GROUP THERAPY AND PARTICIPATED BY DOING A WORDSEARCH. PT WAS QUIET AND ON TASK. PT IS SET TO BE DISCHARGED FROM THE UNIT THIS AFTERNOON.
--- NOTE | 2019-09-12 13:20 | NUR ---
TRANSPORTATION ARRANGED WITH PATIENT FRIEND TO TRANSPORT WITH TOMB MAKER HELPER TIME 2:00 P.M.
--- NOTE | 2019-09-12 13:31 | NUR ---
MEDICATIONS DELIVERED TO PT. ON [facility] BY [facility]. SENT HOME WITH PATIENT.
--- NOTE | 2019-09-12 13:43 | NUR ---
REFERRAL TO [facility], PT. ACCEPTED AND START OF CARE WILL BEGIN SUNDAY.
--- NOTE | 2019-09-15 07:58 | NUR ---
PHYSICAL THERAPY CO-SIGN I approve of the Physical Therapy notes written above. Ada Hilario PT
--- NOTE | 2019-09-15 15:50 | NUR ---
OCCUPATIONAL THERAPY CO-SIGN I approve of the Occupational Therapy notes written above. BRANDEN FARAH OTR/Stephen
== END 2019-09-12 13:48 | disposition home or self-care (01) | DRG 885 ==
LOC: 3N 18:06
PROVIDERS: Registered Nurse; ADMIT Psychiatry & Neurology Psychiatry
DX: F33.3 Major depressive disorder, recurrent, severe with psychotic symptoms (principal); N17.0 Acute kidney failure with tubular necrosis; F23 Brief psychotic disorder; F02.81 Dementia in other diseases classified elsewhere, unspecified severity, with behavioral disturbance; G30.9 Alzheimer's disease, unspecified; I10 Essential (primary) hypertension; F41.1 Generalized anxiety disorder; I25.2 Old myocardial infarction; Z86.73 Personal history of transient ischemic attack (TIA), and cerebral infarction without residual deficits; Z90.710 Acquired absence of both cervix and uterus; Z88.5 Allergy status to narcotic agent; Z88.8 Allergy status to other drugs, medicaments and biological substances; Z81.1 Family history of alcohol abuse and dependence; Z82.49 Family history of ischemic heart disease and other diseases of the circulatory system; Z79.899 Other long term (current) drug therapy; Z79.82 Long term (current) use of aspirin

== ENCOUNTER 2019-09-21 01:53 | Inpatient (IN) | payer MEDICARE ==
[~2019-09-21] VITALS: Ht 167.6 cm; Wt 65.8 kg
[2019-09-21] VITALS (15 sets, daily range): BP systolic 125–179; BP diastolic 49–91
[~2019-09-21 01:53] MED LIST changes: +RIVASTIGMINE TAR6 M1 PO; +VITAMIN D3125 MC1 PO
[2019-09-21 02:52] LABS: BASO % 0.1 % (0.0-1.0); EOS # 0.1 10*3/uL (0.0-0.4); EOS % 1.2 % (1.0-4.0); HEMATOCRIT 36.3 % (37.0-47.0); LYMPH # 0.7 10*3/uL (1.3-4.4); LYMPH % 9.7 % (27.0-41.0); MEAN CELL VOLUME 96.3 fl (81.0-99.0); MEAN CORPUSCULAR HGB 31.8 pg (27.0-31.0); MEAN CORPUSCULAR HGB CONC 33.1 g/dl (33.0-37.0); MEAN PLATELET VOLUME 10.5 fl (9.6-12.3); MONO # 0.4 10*3/uL (0.1-1.0); MONO % 5.6 % (3.0-9.0); NEUT # 6.3 10*3/uL (2.3-7.9); NEUT % 83.1 % (47.0-73.0); PLATELET COUNT AUTOMATED 153 10*3/uL (130-400); RED BLOOD COUNT 3.77 10*6/uL (4.10-5.10); RED CELL DISTRI WIDTH 13.2 % (0-14.5); WHITE BLOOD COUNT 7.5 10*3/uL (4.8-10.8)
[2019-09-21 03:03] LABS: ACT PARTIAL THROMBO TIME 21.6 SECONDS (20.0-32.1); INTERNATIONAL NORM RATIO 0.9 (2.0-3.5)
[2019-09-21 03:07] LABS: ALBUMIN 3.7 gm/dl (3.1-4.5); ALKALINE PHOSPHATASE 83 U/L (45-117); BUN 15 mg/dl (7-24); CHLORIDE 105 mmol/L (98-107); CREATININE 1.03 mg/dL (0.55-1.02); LIPASE 313 U/L (73-393); POTASSIUM 3.2 mmol/L (3.5-5.1); SGOT/AST 19 IU/L (3-35); SGPT/ALT 27 U/L (12-78); SODIUM 141 mmol/L (136-145); TOTAL PROTEIN 6.7 gm/dL (6.4-8.2); TROPONIN I < 0.015 ng/ml (<0.045)
[2019-09-22] VITALS: BP 120/53
[2019-09-22 06:30] LABS: BASO % 0.2 % (0.0-1.0); EOS % 0.9 % (1.0-4.0); HEMATOCRIT 33.2 % (37.0-47.0); HEMOGLOBIN 10.6 g/dl (12.0-16.0); LYMPH # 0.9 10*3/uL (1.3-4.4); LYMPH % 19.8 % (27.0-41.0); MEAN CELL VOLUME 96.2 fl (81.0-99.0); MEAN CORPUSCULAR HGB 30.7 pg (27.0-31.0); MEAN CORPUSCULAR HGB CONC 31.9 g/dl (33.0-37.0); MEAN PLATELET VOLUME 10.8 fl (9.6-12.3); MONO # 0.3 10*3/uL (0.1-1.0); MONO % 6.2 % (3.0-9.0); NEUT # 3.3 10*3/uL (2.3-7.9); NEUT % 72.7 % (47.0-73.0); PLATELET COUNT AUTOMATED 155 10*3/uL (130-400); RED BLOOD COUNT 3.45 10*6/uL (4.10-5.10); RED CELL DISTRI WIDTH 13.2 % (0-14.5); WHITE BLOOD COUNT 4.6 10*3/uL (4.8-10.8)
[2019-09-22 06:46] LABS: VITAMIN D, 25-HYDROXY 58.7 ng/mL (30-100)
[2019-09-22 06:47] LABS: BUN 12 mg/dl (7-24); CHLORIDE 106 mmol/L (98-107); CHOLESTEROL 95 mg/dL (<200); PHOSPHOROUS 3.1 mg/dL (2.5-4.9); POTASSIUM 3.3 mmol/L (3.5-5.1); SODIUM 141 mmol/L (136-145); TRIGLYCERIDES 56 mg/dl (<150); VLDL CHOLESTEROL 11 mg/dL (6-40)
[2019-09-22 06:56] LABS: HDL CHOLESTEROL 50 mg/dl (40-60); LDL CHOLESTEROL 34 mg/dL (9-159); THYROID STIM HORMONE (HS) 0.528 uIU/ml (0.358-4.75)
[2019-09-22 12:00] VITALS: BP 152/60
[2019-09-22] MEDS ORDERED: RISPERDAL0.5 MG PO (12:15)
[2019-09-22] MEDS ORDERED: COREG6.25 MG PO (14:25)
== END 2019-09-22 15:59 | disposition home or self-care (01) | DRG 392 ==
LOC: ED 01:53 → EDHOLD 04:45 → 4E 04:45 → ICCU 04:52 → 4E 05:39
PROVIDERS: Emergency Medicine Emergency Medical Services; Internal Medicine; ADMIT Internal Medicine
DX: K21.9 Gastro-esophageal reflux disease without esophagitis (principal); F23 Brief psychotic disorder; N39.0 Urinary tract infection, site not specified; R10.10 Upper abdominal pain, unspecified; R00.1 Bradycardia, unspecified; E87.6 Hypokalemia; R11.0 Nausea; I10 Essential (primary) hypertension; M10.9 Gout, unspecified; F41.1 Generalized anxiety disorder; F32.9 Major depressive disorder, single episode, unspecified; Z96.653 Presence of artificial knee joint, bilateral; I67.9 Cerebrovascular disease, unspecified; Z88.8 Allergy status to other drugs, medicaments and biological substances; Z88.6 Allergy status to analgesic agent; I25.2 Old myocardial infarction; Z86.73 Personal history of transient ischemic attack (TIA), and cerebral infarction without residual deficits; Z87.440 Personal history of urinary (tract) infections; Z90.710 Acquired absence of both cervix and uterus; Z81.1 Family history of alcohol abuse and dependence; Z82.49 Family history of ischemic heart disease and other diseases of the circulatory system; Z82.5 Family history of asthma and other chronic lower respiratory diseases; Z79.82 Long term (current) use of aspirin; Z79.899 Other long term (current) drug therapy

== ENCOUNTER 2019-09-27 13:28 | Inpatient (IN) | payer MEDICARE ==
[2019-09-27] VITALS (7 sets, daily range): BP systolic 110–168; BP diastolic 58–88
[~2019-09-27] VITALS: Ht 170.2 cm; Wt 66.2 kg
[~2019-09-27 13:28] MED LIST changes: +COREG6.25 MG PO; +RISPERDAL0.5 MG PO
[2019-09-27 13:48] LABS: BASO % 0.2 % (0.0-1.0); EOS # 0.1 10*3/uL (0.0-0.4); EOS % 1.2 % (1.0-4.0); HEMATOCRIT 37.5 % (37.0-47.0); HEMOGLOBIN 12.1 g/dl (12.0-16.0); LYMPH # 0.9 10*3/uL (1.3-4.4); LYMPH % 10.5 % (27.0-41.0); MEAN CELL VOLUME 96.9 fl (81.0-99.0); MEAN CORPUSCULAR HGB 31.3 pg (27.0-31.0); MEAN CORPUSCULAR HGB CONC 32.3 g/dl (33.0-37.0); MEAN PLATELET VOLUME 10.7 fl (9.6-12.3); MONO # 0.4 10*3/uL (0.1-1.0); MONO % 4.6 % (3.0-9.0); NEUT % 83.3 % (47.0-73.0); PLATELET COUNT AUTOMATED 152 10*3/uL (130-400); RED BLOOD COUNT 3.87 10*6/uL (4.10-5.10); RED CELL DISTRI WIDTH 13.2 % (0-14.5); WHITE BLOOD COUNT 8.5 10*3/uL (4.8-10.8)
[2019-09-27 14:04] LABS: ALBUMIN 3.7 gm/dl (3.1-4.5); ALKALINE PHOSPHATASE 83 U/L (45-117); BUN 12 mg/dl (7-24); CHLORIDE 107 mmol/L (98-107); CREATININE 0.97 mg/dL (0.55-1.02); POTASSIUM 3.2 mmol/L (3.5-5.1); SGOT/AST 22 IU/L (3-35); SGPT/ALT 30 U/L (12-78); SODIUM 143 mmol/L (136-145); TOTAL PROTEIN 6.3 gm/dL (6.4-8.2)
[2019-09-27 14:05] LABS: TROPONIN I < 0.015 ng/ml (<0.045)
[2019-09-27] MEDS ORDERED: RIVASTIGMINE TAR6 M1 PO (15:38)
[2019-09-27] MEDS ORDERED: COREG12.5 M1 PO (15:42)
[2019-09-27] MEDS ORDERED: DONEPEZIL HYDROC5 MG PO (15:43)
[2019-09-27] MEDS ORDERED: RISPERDAL3 M1 PO (15:48)
[2019-09-28] VITALS: BP 112/65
[2019-09-28 04:00] VITALS: BP 113/58
[2019-09-28 05:22] LABS: ALBUMIN 3.2 gm/dl (3.1-4.5); ALKALINE PHOSPHATASE 70 U/L (45-117); BUN 14 mg/dl (7-24); CHLORIDE 109 mmol/L (98-107); CREATININE 1.05 mg/dL (0.55-1.02); PHOSPHOROUS 3.3 mg/dL (2.5-4.9); POTASSIUM 3.3 mmol/L (3.5-5.1); SGOT/AST 18 IU/L (3-35); SGPT/ALT 25 U/L (12-78); SODIUM 141 mmol/L (136-145); TOTAL PROTEIN 5.7 gm/dL (6.4-8.2)
[2019-09-28 05:30] LABS: THYROID STIM HORMONE (HS) 0.583 uIU/ml (0.358-4.75)
[2019-09-28 06:00] LABS: BASO % 0.1 % (0.0-1.0); EOS % 0.4 % (1.0-4.0); HEMATOCRIT 36.4 % (37.0-47.0); HEMOGLOBIN 11.7 g/dl (12.0-16.0); LYMPH # 1.1 10*3/uL (1.3-4.4); LYMPH % 15.5 % (27.0-41.0); MEAN CELL VOLUME 96.3 fl (81.0-99.0); MEAN CORPUSCULAR HGB CONC 32.1 g/dl (33.0-37.0); MEAN PLATELET VOLUME 10.9 fl (9.6-12.3); MONO # 0.6 10*3/uL (0.1-1.0); MONO % 8.4 % (3.0-9.0); NEUT # 5.3 10*3/uL (2.3-7.9); NEUT % 75.2 % (47.0-73.0); PLATELET COUNT AUTOMATED 159 10*3/uL (130-400); RED BLOOD COUNT 3.78 10*6/uL (4.10-5.10); RED CELL DISTRI WIDTH 13.2 % (0-14.5)
[2019-09-28 08:00] VITALS: BP 103/55
[2019-09-28 12:00] VITALS: BP 85/44; BP 90/42
[2019-09-28 16:00] VITALS: BP 115/88
[2019-09-28 19:24] VITALS: BP 91/47
[2019-09-29] VITALS: BP 102/56
[2019-09-29 04:00] VITALS: BP 98/65
[2019-09-29 04:39] LABS: CREATININE 1.86 mg/dL (0.55-1.02); POTASSIUM 3.9 mmol/L (3.5-5.1)
[2019-09-29 08:00] VITALS: BP 110/74
[2019-09-29 12:00] VITALS: BP 122/73
[2019-09-29 16:00] VITALS: BP 117/51
[2019-09-29 20:00] VITALS: BP 124/67
[2019-09-30] VITALS: BP 102/72
[2019-09-30 04:00] VITALS: BP 158/77
[2019-09-30 05:54] LABS: CREATININE 1.25 mg/dL (0.55-1.02); POTASSIUM 4.5 mmol/L (3.5-5.1)
[2019-09-30 08:00] VITALS: BP 138/68
[2019-09-30 12:00] VITALS: BP 134/63
[2019-09-30] MEDS ORDERED: RISPERIDONE0.25 M2 PO (15:25)
[2019-09-30] MEDS ORDERED: XARE15TA PO (15:25)
[2019-09-30] MEDS ORDERED: RISPERIDONE3 M2 PO (15:25)
[2019-09-30 16:00] VITALS: BP 126/84
== END 2019-09-30 17:54 | disposition home health service (06) | DRG 308 ==
LOC: ED 13:28 → EDHOLD 15:08 → ICCU 15:08 → 4E 09-30 13:46
PROVIDERS: Emergency Medicine; Internal Medicine; Student in an Organized Health Care Education/Training Program; ADMIT Internal Medicine
PROC: 3E073KZ Introduction of Other Diagnostic Substance into Coronary Artery, Percutaneous Approach (ICD-10-PCS; principal; 2019-09-29)
PROC: 4A02XM4 Measurement of Cardiac Total Activity, External Approach (ICD-10-PCS; principal; 2019-09-29)
DX: I48.91 Unspecified atrial fibrillation (principal); N17.0 Acute kidney failure with tubular necrosis; F33.2 Major depressive disorder, recurrent severe without psychotic features; E87.6 Hypokalemia; R73.9 Hyperglycemia, unspecified; F41.1 Generalized anxiety disorder; M10.9 Gout, unspecified; D64.9 Anemia, unspecified; E87.8 Other disorders of electrolyte and fluid balance, not elsewhere classified; N18.9 Chronic kidney disease, unspecified; I12.9 Hypertensive chronic kidney disease with stage 1 through stage 4 chronic kidney disease, or unspecified chronic kidney disease; K29.70 Gastritis, unspecified, without bleeding; R62.7 Adult failure to thrive; G30.9 Alzheimer's disease, unspecified; F02.80 Dementia in other diseases classified elsewhere, unspecified severity, without behavioral disturbance, psychotic disturbance, mood disturbance, and anxiety; I67.9 Cerebrovascular disease, unspecified; Z96.653 Presence of artificial knee joint, bilateral; Z68.22 Body mass index [BMI] 22.0-22.9, adult; Z82.49 Family history of ischemic heart disease and other diseases of the circulatory system; Z88.5 Allergy status to narcotic agent; Z88.8 Allergy status to other drugs, medicaments and biological substances; I25.2 Old myocardial infarction; Z86.73 Personal history of transient ischemic attack (TIA), and cerebral infarction without residual deficits; Z90.710 Acquired absence of both cervix and uterus; Z81.1 Family history of alcohol abuse and dependence; Z79.899 Other long term (current) drug therapy

== ENCOUNTER 2019-10-02 15:43 | Inpatient (IN) | payer MEDICARE ==
[~2019-10-02] VITALS: Ht 170.2 cm; Wt 63.6 kg
[~2019-10-02 15:43] MED LIST changes: +COREG12.5 M1 PO; +DONEPEZIL HYDROC5 MG PO; +RISPERDAL3 M1 PO; +XARE15TA PO
[2019-10-02 15:51] VITALS: BP 175/64
[2019-10-02 16:57] LABS: BASO % 0.2 % (0.0-1.0); EOS # 0.1 10*3/uL (0.0-0.4); HEMATOCRIT 39.5 % (37.0-47.0); HEMOGLOBIN 12.7 g/dl (12.0-16.0); LYMPH # 0.7 10*3/uL (1.3-4.4); LYMPH % 13.3 % (27.0-41.0); MEAN CELL VOLUME 97.8 fl (81.0-99.0); MEAN CORPUSCULAR HGB 31.4 pg (27.0-31.0); MEAN CORPUSCULAR HGB CONC 32.2 g/dl (33.0-37.0); MEAN PLATELET VOLUME 10.5 fl (9.6-12.3); MONO # 0.3 10*3/uL (0.1-1.0); NEUT # 4.1 10*3/uL (2.3-7.9); NEUT % 79.1 % (47.0-73.0); PLATELET COUNT AUTOMATED 137 10*3/uL (130-400); RED BLOOD COUNT 4.04 10*6/uL (4.10-5.10); WHITE BLOOD COUNT 5.2 10*3/uL (4.8-10.8)
[2019-10-02 17:05] LABS: ACT PARTIAL THROMBO TIME 25.1 SECONDS (20.0-32.1)
[2019-10-02 17:10] LABS: ALKALINE PHOSPHATASE 95 U/L (45-117); BUN 11 mg/dl (7-24); CHLORIDE 107 mmol/L (98-107); CREATININE 0.98 mg/dL (0.55-1.02); LIPASE 227 U/L (73-393); POTASSIUM 3.6 mmol/L (3.5-5.1); SGOT/AST 40 IU/L (3-35); SGPT/ALT 43 U/L (12-78); SODIUM 141 mmol/L (136-145); TROPONIN I 0.029 ng/ml (<0.045)
[2019-10-02 17:11] LABS: ACETAMINOPHEN (TYLENOL) < 5.0 ug/ml (10-30)
[2019-10-02 17:15] LABS: ETHYL ALCOHOL < 3.0 mg/dl (<3)
--- NOTE | 2019-10-02 17:41 | NUR ---
ATTEMPTED TO COLLECT URINE AND SHE WENT OUT AROUND THE HAT. WILL ATTEMOT TO TRY AGAIN.
--- NOTE | 2019-10-02 18:06 | NUR ---
PATIENT RESTING IN BED SLEEPING. NO FURTHER COMPLAINTS AT THIS TIME. CALL LIGHT REMAINS WITHIN REACH.
[2019-10-02 18:36] LABS: BILIRUBIN NEGATIVE (NEGATIVE); CLARITY CLEAR (CLEAR); COLOR YELLOW (YELLOW); GLUCOSE NEGATIVE (NEGATIVE); KETONE NEGATIVE (NEGATIVE)
[2019-10-02 18:37] LABS: BLOOD TRACE-INTACT (NEGATIVE); LEUKO ESTERASE TRACE (NEGATIVE); NITRITE NEGATIVE (NEGATIVE); PH 8.5 (5.0-9.0); UROBILINOGEN 0.2 E.U./dl (0.2-1.0)
[2019-10-02 18:38] LABS: BACTERIA TRACE
[2019-10-02 18:50] VITALS: BP 157/61
[2019-10-02 18:51] LABS: URINE AMPHETAMINES < 1000 (1000ng/ml); URINE BARBITURATES < 200 (200ng/ml); URINE BENZODIAZEPINES < 200 (200ng/ml); URINE CANNABINOIDS (THC) < 50 (50ng/ml); URINE COCAINE < 300 (300ng/ml); URINE METHADONE < 300 (300ng/ml); URINE OPIATES < 300 (300ng/ml)
[2019-10-02 19:07] LABS: URINE PHENCYCLIDINE < 25 (25ng/ml)
[2019-10-02 19:59] VITALS: BP 163/77
[2019-10-02 20:32] VITALS: BP 160/64
--- NOTE | 2019-10-02 21:07 | NUR ---
PT ASSISTED TO THE BATHROOM, AMBULATED WITH STEADY GAIT. DENIES ANY PAIN OR DISCOMFORT AT THIS TIME. CALL LIGHT WITHIN REACH.
[2019-10-02 21:32] VITALS: BP 145/63
--- NOTE | 2019-10-02 21:32 | NUR ---
Time: 2131 A 79 year old FEMALE admitted to 4E under services of RENETTA LEONE DO. Pt. arrived via stretcher from ER. Chief complaint: BURNING WITH URINATION. GISELLA SANTOYO
[2019-10-02] MEDS ORDERED: RIVASTIGMINE TAR6 M1 PO (23:16)
[2019-10-02] MEDS ORDERED: RISPERIDONE3 M2 PO (23:19)
--- NOTE | 2019-10-02 23:21 | NUR ---
NOTIFIED PTS MED REC IS UP TO DATE.
[2019-10-03] VITALS: BP 166/78
[2019-10-03 00:30] VITALS: BP 152/80
--- NOTE | 2019-10-03 05:26 | NUR ---
MEDICATED WITH PRN TYLENOL FOR CO FOOT PAIN PER PATIENT REQUEST. WILL MONITOR.
[2019-10-03 06:47] LABS: BASO % 0.2 % (0.0-1.0); EOS # 0.1 10*3/uL (0.0-0.4); EOS % 1.6 % (1.0-4.0); HEMATOCRIT 33.3 % (37.0-47.0); HEMOGLOBIN 10.9 g/dl (12.0-16.0); LYMPH # 0.6 10*3/uL (1.3-4.4); LYMPH % 13.5 % (27.0-41.0); MEAN CELL VOLUME 97.9 fl (81.0-99.0); MEAN CORPUSCULAR HGB 32.1 pg (27.0-31.0); MEAN CORPUSCULAR HGB CONC 32.7 g/dl (33.0-37.0); MEAN PLATELET VOLUME 10.7 fl (9.6-12.3); MONO # 0.4 10*3/uL (0.1-1.0); NEUT # 3.3 10*3/uL (2.3-7.9); NEUT % 76.2 % (47.0-73.0); PLATELET COUNT AUTOMATED 123 10*3/uL (130-400); RED CELL DISTRI WIDTH 13.1 % (0-14.5); WHITE BLOOD COUNT 4.4 10*3/uL (4.8-10.8)
[2019-10-03 07:24] LABS: BUN 9 mg/dl (7-24); CHLORIDE 110 mmol/L (98-107); CREATININE 0.84 mg/dL (0.55-1.02); PHOSPHOROUS 3.4 mg/dL (2.5-4.9); POTASSIUM 3.7 mmol/L (3.5-5.1); SODIUM 142 mmol/L (136-145)
[2019-10-03 08:00] VITALS: BP 146/76
--- NOTE | 2019-10-03 08:00 | NUR ---
IN TO ROOM. PT AWAKE, ALERT AND ORIENTED. NO STATED COMPLAINTS AT THIS TIME OTHER THAN THE BLANKETS ARE HURTING HER FEET. BLANKETS ADJUSTED AT THIS TIME. NO SOB NOTED OR DISTRESS. BED IN LOWEST LOCKED POSITION AND CALL LIGHT WITHIN REACH. WILL CONTINUE TO MONITOR.
--- NOTE | 2019-10-03 09:00 | NUR ---
Sales Stock Associate in to talk to patient. Patient states lives at home with alone. There are 3 steps in the home. Physician: erin gandhi [facility] [place] [facility] Patient's level of ADLs: MINIMAL ASSIST Patient has working utilities: all working DME: none Follow-up physician's appointment after d/c: will be made by hospitalist nurse director upon discharge Does patient want to access PORTAL?: no Discharge plan discussed with patient, she states she lives at home alone, she requires minimal assistance to get around at home, discussed with her having multiple hospital admissions and possibly going to a short term senior care for 24 hour care and 5 days of physical therapy and occupational therpy to increase strength and endurance for home, she stated she has [facility] currently and would rather go home, she stated if she absolutely had to go to a facility she would go to [facility]. a referral will be made to [facility] in the event that patient will need to go, case management will follow. PASQUALE OLIVER
--- NOTE | 2019-10-03 11:20 | NUR ---
PHYSICAL THERAPY Screen received pt admitted with c/o nausea and burning with urination after recent discharge on 09/29 with medication changes for afib/bradycardia. Please consult PT if pt has had a decline in functional status from baseline, thank you. Ada Hilario PT
[2019-10-03 12:00] VITALS: BP 174/66
--- NOTE | 2019-10-03 12:40 | NUR ---
Spoke with Paulina Carrion concerning discharge plans. Pt. requiring higher level of care and is unsafe at this point to return home. Notified Antonina Lui from Adult Protective Services of [facility], they are following patient at home. Antonina advised to send referral to [facility]. APS continues to persue Guardianship Process. Advised Paulina that order needed for PT/OT consult for SNF.
--- NOTE | 2019-10-03 12:51 | NUR ---
Nursing screen received and OT orders received. Will follow up with patient for completion of an OT evaluation. Thank you. Lamar Odom, OTR/L
--- NOTE | 2019-10-03 14:34 | NUR ---
Referral faxed to [facility] Attn: Lindsay.
--- NOTE | 2019-10-03 14:35 | NUR ---
PHYSICAL THERAPY Eval completed on the 4th floor full evaluation to follow, moderate level of complexity. Recommend SNF at discharge. Ada Hilario PT
[2019-10-03 16:00] VITALS: BP 182/80
--- NOTE | 2019-10-03 16:39 | NUR ---
PT COMPLAINS OF HEADACHE. BP ELEVATED AT 182/80. PARKER MORALES NOTIFIED. PRN TYLENOL ADMINSTERED. WILL CONTINUE TO MONITOR.
--- NOTE | 2019-10-03 17:30 | NUR ---
PT ASLEEP. PRN TYLENOL CONSIDERED EFFECTIVE.
--- NOTE | 2019-10-03 19:00 | NUR ---
ASSUMED CARE FOR THIS PT AT THIS TIME. NO C/O VOICED. PT NOTED TO BE FORGETFUL. BED IN LOW POSITION W/WHEELS LOCKED AND ALARM ON. PT C/O FEELING COLD. SKIN PALE/WARM/DRY. ADDITIONAL BLANKET PLACED ON PT AND HEAT TURNED UP IN ROOM. CALL LIGHT IN REACH.
[2019-10-04] VITALS: BP 162/63
--- NOTE | 2019-10-04 00:25 | NUR ---
PT C/O N/V. PT SITTING ON TOILET SPITTING INTO TRASH CAN. PT MEDICATED W/ZOFRAN IVP. PT RESTING QUIETLY IN BED AT THIS TIME. CALL LIGHT IN REACH W/BED ALARM ON.
[2019-10-04 08:00] VITALS: BP 148/82
[2019-10-04 12:00] VITALS: BP 155/70
[2019-10-04 16:00] VITALS: BP 142/68
[2019-10-04 20:00] VITALS: BP 137/67
[2019-10-05] VITALS: BP 146/71
--- NOTE | 2019-10-05 04:01 | NUR ---
24 HR chart check completed.
[2019-10-05 06:55] LABS: BASO % 0.2 % (0.0-1.0); EOS # 0.1 10*3/uL (0.0-0.4); EOS % 1.1 % (1.0-4.0); HEMATOCRIT 37.3 % (37.0-47.0); HEMOGLOBIN 11.9 g/dl (12.0-16.0); LYMPH % 18.6 % (27.0-41.0); MEAN CELL VOLUME 98.4 fl (81.0-99.0); MEAN CORPUSCULAR HGB 31.4 pg (27.0-31.0); MEAN CORPUSCULAR HGB CONC 31.9 g/dl (33.0-37.0); MEAN PLATELET VOLUME 11.2 fl (9.6-12.3); MONO # 0.5 10*3/uL (0.1-1.0); MONO % 8.6 % (3.0-9.0); NEUT # 3.8 10*3/uL (2.3-7.9); NEUT % 71.1 % (47.0-73.0); PLATELET COUNT AUTOMATED 147 10*3/uL (130-400); RED BLOOD COUNT 3.79 10*6/uL (4.10-5.10); WHITE BLOOD COUNT 5.4 10*3/uL (4.8-10.8)
[2019-10-05 07:03] LABS: BUN 14 mg/dl (7-24); CHLORIDE 109 mmol/L (98-107); CREATININE 1.07 mg/dL (0.55-1.02); POTASSIUM 3.6 mmol/L (3.5-5.1); SODIUM 141 mmol/L (136-145)
--- NOTE | 2019-10-05 07:48 | NUR ---
[facility] DENTAL SCHEDULING COORDINATOR CALLED IN TO SPEAK WITH PT. CALL TRANSFERRED TO PT ROOM. PT SPEAKING WITH DENTAL SCHEDULING COORDINATOR AT THIS TIME.
[2019-10-05 08:00] VITALS: BP 139/68
--- NOTE | 2019-10-05 08:56 | NUR ---
SLEEPING, AROUSES EASILY FOR AM MEDS. TOLERATED WELL. CALL LIGHT IN REACH. COMPLAINTS OF "BEING COLD", WARM BLANKET PROVIDED.
[2019-10-05 12:00] VITALS: BP 132/57
[2019-10-05 16:00] VITALS: BP 137/73
--- NOTE | 2019-10-05 19:10 | NUR ---
REPORT RECEIVED. PT LYING IN BED WATCHING TV. PT VOICES NO COMPLAINTS AT THIS TIME. CALL LIGHT IN REACH
[2019-10-05 20:00] VITALS: BP 131/67
[2019-10-06] VITALS: BP 159/75
[2019-10-06 06:59] LABS: BASO % 0.4 % (0.0-1.0); EOS # 0.1 10*3/uL (0.0-0.4); EOS % 1.2 % (1.0-4.0); HEMATOCRIT 36.2 % (37.0-47.0); HEMOGLOBIN 11.6 g/dl (12.0-16.0); LYMPH # 1.3 10*3/uL (1.3-4.4); LYMPH % 25.6 % (27.0-41.0); MEAN CELL VOLUME 98.9 fl (81.0-99.0); MEAN CORPUSCULAR HGB 31.7 pg (27.0-31.0); MEAN PLATELET VOLUME 11.1 fl (9.6-12.3); MONO # 0.5 10*3/uL (0.1-1.0); MONO % 9.6 % (3.0-9.0); NEUT # 3.1 10*3/uL (2.3-7.9); PLATELET COUNT AUTOMATED 141 10*3/uL (130-400); RED BLOOD COUNT 3.66 10*6/uL (4.10-5.10); WHITE BLOOD COUNT 4.9 10*3/uL (4.8-10.8)
[2019-10-06 07:09] LABS: BUN 12 mg/dl (7-24); CHLORIDE 109 mmol/L (98-107); CREATININE 1.07 mg/dL (0.55-1.02); PHOSPHOROUS 3.7 mg/dL (2.5-4.9); POTASSIUM 3.5 mmol/L (3.5-5.1); SODIUM 143 mmol/L (136-145)
[2019-10-06 08:00] VITALS: BP 152/60
--- NOTE | 2019-10-06 08:02 | NUR ---
AROUSES EASILY FOR AM ASSESSMENT. NO VOICED COMPLAINTS. CALL LIGHT IN REACH.
--- NOTE | 2019-10-06 10:15 | NUR ---
Occupational Therapy evaluation completed on 4 with full evaluation to follow. Recommend occupational therapy per plan of care and SNF upon discharge. Thank you for this referral. Abby lE OTr/l
--- NOTE | 2019-10-06 11:17 | NUR ---
QUARRY MANAGER faxed referral information to [facility] on this date. QUARRY MANAGER will continue to follow.
[2019-10-06 12:00] VITALS: BP 138/64
--- NOTE | 2019-10-06 12:20 | NUR ---
OT NOTE Pt was seen this P.M. 1:1 for 15 minute OT session. Upon arrival pt was supine in bed. Pt identified by name and and had no complaints at this time. Pt transferred supine to sit EOB with SBA. Sit to stand completed from bed level with CGA for safety. Upon inital rise pt had minor LOB forward that required Barbara to correct. Educated pt on importance of slow rise and "collecting" herself before starting task. Functional mobility then completed to the bathroom with CGA for safety. There she transferred on/off standard commode with SBA and use of grab bar and then stood sink side while washing her hands with CGA for safety. Functional mobility was then completed back to the EOB. Challenged pt's dynamic standing balance needed for enhanced safety in ADL tasks and set up of tasks. While weight shifting, crossing midline, and reaching over all planes pt was able to maintain F+/G- standing balance. Pt then transferred back into bed sit to supine with SBA. There she was left with call light in hand, tray table in place, and phone in reach. Continue with rec D/C plan to SNF. LAKIA Day/Stephen
--- NOTE | 2019-10-06 12:33 | NUR ---
PHYSICAL THERAPY TREATMENT TIME: IN 12:10 PM Patient presented to therapy in supine with head of bed flat and bed alarm off. Patient had no complaints. Patient gives informed consent for treatment. Patient was identified by name and on wristband. Patient performed supine to sitting on EOB with SBA. Patient sat on EOB with SBA. Patient completed sit to stand from EOB with SBA. Patient ambulated with no assistve device and CGA for 60' x 4 with no LOB or SOB. Patient performed 30 second sit to stand test from EOB with results being recorded as 11 sit to stands in 30 seconds. Patient transferred back to supine in bed with SBA. Patient was left in supine with head of bed slightly elevated and call light within reach. Patient was 1:1 with this ROTARY DRIER FEEDER for 15 minutes total. DONNA HAMMONDS ROTARY DRIER FEEDER
--- NOTE | 2019-10-06 14:02 | NUR ---
NO VOICED COMPLAINTS. IN BED WATCHING TV. CALL LIGHT WITHIN REACH.
--- NOTE | 2019-10-06 14:41 | NUR ---
YELENA recieved final word from [facility] that she cannot go to their SNF. Per notes it appears that patient was only agreeable to [facility]. YELENA will continue to follow and address needs as they arise.
--- NOTE | 2019-10-06 15:24 | NUR ---
YELENA recieved a call from the medical team that they had concerns that this patient is not competent to make her own decisions, has been denied @ [facility], and the medical team wanted someone to reach out to APS. YELENA attempted to contact APS and left a message for a call back.
--- NOTE | 2019-10-06 15:35 | NUR ---
YELENA spoke with APS by phone on this date. AZAR ARGUETA in fact believes that patient is incompetent to make her own decisions. AZAR in fact has POA paperwork and YELENA was advised to contact POA and ask if they felt comfortable making the decisions for patient. If this is the case patient can then be referred to other SNF'S.
--- NOTE | 2019-10-06 15:45 | NUR ---
YELENA spoke with patient sister and POA. POA expressed that she wanted to talk to her sister before she made any real decisions concerning SNF. POA expressed that she would call YELENA back after speaking with her sister.
[2019-10-06 16:00] VITALS: BP 161/76
--- NOTE | 2019-10-06 16:05 | NUR ---
YELENA spoke with POJaylen again on this date. It was decided that if accepted patient would go to [facility]. YELENA faxed referral to [facility] on this date, pending acceptance or denial.
--- NOTE | 2019-10-06 19:00 | NUR ---
ASSUMED CARE FOR THIS PT AT THIS TIME. PT DENIES ANY FURTHER NAUSEA. CALL LIGHT IN REACH.
[2019-10-06 20:00] VITALS: BP 138/71
--- NOTE | 2019-10-06 22:36 | NUR ---
24 HR chart check completed.
[2019-10-07] VITALS: BP 154/65
[2019-10-07 08:00] VITALS: BP 146/64
--- NOTE | 2019-10-07 08:51 | NUR ---
OT NOTE Pt was seen this A.M. 1:1 for 20 minute OT session. Upon arrival pt was supine in bed. Pt identified by name and and had no complaints at this time other than generalized fatigue. Pt transferred supine to sit EOB with SBA. Sit to stand completed from bed level with CGA for safety, upon inital rise pt had LOB backwards that required Barbara to correct. Educated pt on slow rise for enhanced safety and decreased risk of falls. Functional mobility was then completed around the room while gathering supplies needed for ADL task with CGA for safety. Functional mobility was then completed to the bathroom with CGA for safety. There she stood sink side while completing UB/LB bathing, hair care, and oral care with SBA. Throughout pt was educated on energy conservation techniques for increased I and enhanced safety. Pt was able to tolerate standing throughout entire task and did not require a seated rest break. Functional mobility was then completed back to the EOB with CGA there she transferred sit to supine with SBA. Pt was left supine with call light in hand reach, tray table in place, and phone in reach. Continue with rec D/C plan to SNF. LAKIA Day/Stephen
--- NOTE | 2019-10-07 08:59 | NUR ---
PHYSICAL THERAPY Pt states she has no c/o pain to start tx. she has no bed alarm attached and is lying supine and agreeable to therapy. she can get from supine to the edge of the bed I with no device and no need for VC. Pt also has proper sequencing when getting from STS with hand placement and no need for VC and no assistive device. pt ambulated at [facility] for 150 feet x 1 with no device needed throughout tx. she had no SOB and had no SaO2 in use when starting Tx. Pt was able to get from stand to sit and sit to supine with no VC and no pain. she states she is ready to get out of here and was left in bed, covered, call light next to her and covered in a blanket. Pt went from the initial sit to stand with no pause for vertigo. Total Tx time was 20 minutes. Walter Heller, MANAGER BUDGET
--- NOTE | 2019-10-07 12:19 | NUR ---
Patient is discharged to rehab suites. Her friend Tasha will be picking her up at the ER doors at 1:30. NH, nursing/fire warden notified.
--- NOTE | 2019-10-07 14:05 | NUR ---
Discharge instructions reviewed with patient/family. Patient receptive and verbalizes understanding. Follow-up care arranged. Written instructions given to patient/family. HEPLOCK DISCONTINUED. PATIENT PICKED UP BY NEIGHBOR AND TAKEN TO [facility]. REPORT GIVEN TO RECEIVING NURSE. KARRI NAVARRO
--- NOTE | 2019-10-08 07:45 | NUR ---
OCCUPATIONAL THERAPY CO-SIGN I approve of the Occupational Therapy notes written above. AME REN, OTR/L
--- NOTE | 2019-10-08 07:53 | NUR ---
PHYSICAL THERAPY CO-SIGN I approve of the Physical Therapy notes written above. Ada Hilario PT
== END 2019-10-07 14:05 | disposition other institution (70) | DRG 689 ==
LOC: ED 15:43 → 4E 20:24 → EDHOLD 20:24 → 4E 21:46
PROVIDERS: Family Medicine; Internal Medicine; Nurse Practitioner Family; ADMIT Family Medicine
DX: N30.00 Acute cystitis without hematuria (principal); G93.41 Metabolic encephalopathy; F23 Brief psychotic disorder; D68.69 Other thrombophilia; F19.10 Other psychoactive substance abuse, uncomplicated; I10 Essential (primary) hypertension; M10.9 Gout, unspecified; F41.1 Generalized anxiety disorder; F32.9 Major depressive disorder, single episode, unspecified; I48.0 Paroxysmal atrial fibrillation; R54 Age-related physical debility; Z96.653 Presence of artificial knee joint, bilateral; I25.2 Old myocardial infarction; Z86.73 Personal history of transient ischemic attack (TIA), and cerebral infarction without residual deficits; Z90.710 Acquired absence of both cervix and uterus; Z82.49 Family history of ischemic heart disease and other diseases of the circulatory system; Z81.1 Family history of alcohol abuse and dependence; Z88.8 Allergy status to other drugs, medicaments and biological substances; Z79.899 Other long term (current) drug therapy

== ENCOUNTER 2019-12-25 15:19 | Inpatient (IN) | payer MEDICARE ==
[~2019-12-25] VITALS: Ht 172.7 cm; Wt 109.8 kg
[2019-12-25 15:46] LABS: BASO % 0.2 % (0.0-1.0); EOS # 0.1 10*3/uL (0.0-0.4); EOS % 2.3 % (1.0-4.0); HEMATOCRIT 35.6 % (37.0-47.0); LYMPH # 0.7 10*3/uL (1.3-4.4); LYMPH % 13.8 % (27.0-41.0); MEAN CELL VOLUME 97.5 fl (81.0-99.0); MEAN CORPUSCULAR HGB 31.8 pg (27.0-31.0); MEAN CORPUSCULAR HGB CONC 32.6 g/dl (33.0-37.0); MEAN PLATELET VOLUME 10.5 fl (9.6-12.3); MONO # 0.4 10*3/uL (0.1-1.0); MONO % 7.9 % (3.0-9.0); NEUT # 3.6 10*3/uL (2.3-7.9); NEUT % 75.6 % (47.0-73.0); PLATELET COUNT AUTOMATED 133 10*3/uL (130-400); RED BLOOD COUNT 3.65 10*6/uL (4.10-5.10); RED CELL DISTRI WIDTH 12.5 % (0-14.5); WHITE BLOOD COUNT 4.7 10*3/uL (4.8-10.8)
[2019-12-25 15:56] LABS: ACT PARTIAL THROMBO TIME 26.6 SECONDS (20.0-32.1); INTERNATIONAL NORM RATIO 1.1 (2.0-3.5)
[2019-12-25 16:04] LABS: ALBUMIN 3.5 gm/dl (3.1-4.5); ALKALINE PHOSPHATASE 81 U/L (45-117); BUN 15 mg/dl (7-24); CHLORIDE 112 mmol/L (98-107); CREATININE 0.96 mg/dL (0.55-1.02); POTASSIUM 3.3 mmol/L (3.5-5.1); SGOT/AST 16 IU/L (3-35); SGPT/ALT 33 U/L (12-78); SODIUM 144 mmol/L (136-145); TOTAL PROTEIN 6.2 gm/dL (6.4-8.2)
[2019-12-25 16:09] LABS: TROPONIN I < 0.015 ng/ml (<0.045)
--- NOTE | 2019-12-25 17:38 | NUR ---
PT NIECE NAME IS WHITNEY, NUMBER IS [phone]. WOULD LIKE TO BE UPDATED, PT PERMITTED.
[2019-12-25 17:58] LABS: BACTERIA 1+; BILIRUBIN NEGATIVE (NEGATIVE); BLOOD NEGATIVE (NEGATIVE); CLARITY CLEAR (CLEAR); COLOR YELLOW (YELLOW); GLUCOSE NEGATIVE (NEGATIVE); KETONE NEGATIVE (NEGATIVE); LEUKO ESTERASE 1+ (NEGATIVE); NITRITE NEGATIVE (NEGATIVE); PH 7.5 (5.0-9.0); UROBILINOGEN 0.2 E.U./dl (0.2-1.0)
--- NOTE | 2019-12-25 19:00 | NUR ---
ROOM ASSIGNMEN OBTAINED FROM SPOOL TENDER.PER SPOOL TENDER MARTHA HOUGH TO COMPLETE ADMISSION AND THEN PT IS ABLE TO BE TAKEN TO UNIT.
--- NOTE | 2019-12-25 19:35 | NUR ---
PT ASSISTED ON AND OFF BEDPAN.
[2019-12-25 19:47] VITALS: BP 154/62
[2019-12-25] MEDS ORDERED: ROZEREM8 MG PO (20:15)
--- NOTE | 2019-12-25 20:15 | NUR ---
A 79, admitted to , under the services of ANISHA Epperson DO with a diagnosis of WEAKNESS, SOB, DIFFICULTY SWALLOWING. Chief complaint is SOB, DIFFICULTY SWALLOWING. Patient arrived via bed from ER. Monitor applied. Initial assessment completed. Vital signs taken and recorded. ANISHA EPPERSON DO notified of admission to the unit. Orders received. See assessment for past medical history, medications and allergies. Patient and/or family oriented to unit. [facility] visitation policy reviewed. Clothing/patient valuable form completed. PING SALGUERO
[2019-12-25 20:30] VITALS: BP 154/62
--- NOTE | 2019-12-25 21:00 | NUR ---
PT ARRIVED TO FLOOR AT THIS TIME. NO C/O PAIN OR RESP DISTRESS. RESPS ARE EASY AND NONLABORED. BED IS LOW, CALL LIGHT WITHIN REACH. PT ORIENTED TO ROOM AND USE OF CALL LIGHT. BED ALARM ON. WILL CONTINUE TO MONITOR.
--- NOTE | 2019-12-25 22:30 | NUR ---
CONTACTED DR SHIELDS FOR PATIENTS REQUEST FOR SOMETHING TO SLEEP. ORDERS RECIEVED.
--- NOTE | 2019-12-25 22:40 | NUR ---
PT ADMINSITERED ONE TIME DOSE OF ATIVAN FOR C/O ANXIETY AND INABILITY TO SLEEP. WILL MONITOR FOR EFFECTIVENESS.
--- NOTE | 2019-12-25 23:15 | NUR ---
PT IS ASLEEP IN BED AT THIS TIME. PRN ATIVAN EFFECTIVE.
[2019-12-26] VITALS: BP 139/66
[2019-12-26 06:54] LABS: BASO % 0.2 % (0.0-1.0); BUN 12 mg/dl (7-24); CHLORIDE 112 mmol/L (98-107); EOS # 0.2 10*3/uL (0.0-0.4); EOS % 3.4 % (1.0-4.0); HEMATOCRIT 39.6 % (37.0-47.0); LYMPH # 0.6 10*3/uL (1.3-4.4); LYMPH % 12.4 % (27.0-41.0); MEAN CELL VOLUME 97.8 fl (81.0-99.0); MEAN CORPUSCULAR HGB 31.6 pg (27.0-31.0); MEAN CORPUSCULAR HGB CONC 32.3 g/dl (33.0-37.0); MEAN PLATELET VOLUME 10.4 fl (9.6-12.3); MONO # 0.4 10*3/uL (0.1-1.0); NEUT # 3.6 10*3/uL (2.3-7.9); NEUT % 74.6 % (47.0-73.0); PLATELET COUNT AUTOMATED 144 10*3/uL (130-400); POTASSIUM 3.5 mmol/L (3.5-5.1); RED BLOOD COUNT 4.05 10*6/uL (4.10-5.10); RED CELL DISTRI WIDTH 12.4 % (0-14.5); SODIUM 144 mmol/L (136-145); WHITE BLOOD COUNT 4.8 10*3/uL (4.8-10.8)
[2019-12-26 08:00] VITALS: BP 107/85; BP 156/74
--- NOTE | 2019-12-26 08:00 | NUR ---
0800AM ASSESSMENT COMPLETE. PT RESTING IN BED. LUNGS CLEAR ON REOOM AIR. DENIES C/O AT PRESENT TIME. BED IN LOW LOCKED POSITION. BED ALARM MAINTAINED. CALL LIGHT IN REACH. WILL MONITOR.
--- NOTE | 2019-12-26 11:40 | NUR ---
Air Twist Operator in to talk to patient. Patient states lives at HOME with ALONE. There are 3 steps in the home. Physician: JIA SANDHU Pharmacy: [facility] health services: [facility] Patient's level of ADLs: INDEPENDENT Patient has working utilities: YES DME: [facility] Follow-up physician's appointment after d/c: WILL BE MADE BY HOSPITALIST NURSE DIRECTOR ON DISCHARGE Does patient want to access PORTAL?: NO Discharge plan PT LIVES AT HOME ALONE AND IS NORMALLY INDEPENDENT IN HER CARE. STATES SHE HAS BEEN WEAK LATELY AND UNABLE TO CARE FOR HERSELF. SHE IS AGREEABLE TO GO TO A SNF BEFORE GOING HOME. PT GIVEN LIST OF LOCAL FACILITIES AND [facility]OSE [facility]. REFERRAL WILL BE MADE. WILL CONTINUE TO FOLLOW.. SIERRA ALARCON
[2019-12-26 12:00] VITALS: BP 138/71
--- NOTE | 2019-12-26 12:58 | NUR ---
PENDING ACCEPTANCE TO [facility]. WILL NEED PT/OT ASSESSMENTS TO COMPLETE REFERRAL. PATIENT WILL REQUIRE COVID TEST RESULTS BEFORE ADMISSION TO [facility]. ASSURANCE ASSOCIATE COMPLETED HENS.
--- NOTE | 2019-12-26 14:17 | NUR ---
[facility] DENIED [facility]. GRIEF COUNSELOR NOTIFIED.
--- NOTE | 2019-12-26 14:27 | NUR ---
WORKERS' COMPENSATION COMMISSIONER FAXED NEW REFERRAL TO [facility]. WILL NEED PT/OT EVALS AND COVID TESTING TO COMPLETE REFERRAL.
--- NOTE | 2019-12-26 14:48 | NUR ---
RESTING IN BED. DENIES C/O AT THIS TIME. CALL LIGHT IN REACH. WILL MONITOR.
--- NOTE | 2019-12-26 15:42 | NUR ---
PATIENT IS ACCEPTED AT [facility]. WILL NEED COVID RESULTS. WILL NEED PT EVAL TO COMPLETE REFERRAL. IF COVID RESULTS ARE BACK AND PT EVAL IS SENT PATIENT CAN ADMIT TO [facility] ON 12/28/2019.
[2019-12-26 16:00] VITALS: BP 147/83
[2019-12-26 20:00] VITALS: BP 155/68
--- NOTE | 2019-12-26 20:00 | NUR ---
RESTING IN BED WITH EYES CLOSED; AROUSES EASILY FOR ASSESSMENT. BED ALARM ON; CALL LIGHT WITHIN REACH.
--- NOTE | 2019-12-26 22:00 | NUR ---
TOOK PO MEDICATIONS WITHOUT DIFFICULTY; VOICES NO C/O AT THIS TIME. CALL LIGHT WITHIN REACH; BED ALARM ON.
[2019-12-27] VITALS: BP 139/87
[2019-12-27 08:00] VITALS: BP 139/65
[2019-12-27] MEDS ORDERED: XARE15TA PO (10:22)
[2019-12-27 12:00] VITALS: BP 109/64
[2019-12-27 16:00] VITALS: BP 150/82
[2019-12-27 20:00] VITALS: BP 131/64
[2019-12-28] VITALS: BP 150/64
[2019-12-28 08:00] VITALS: BP 139/74
--- NOTE | 2019-12-28 09:34 | NUR ---
PT STATES UNDERSTANDING OF AM MEDICATIONS, NO NEEDS STATED AT THIS TIME
[2019-12-28 12:00] VITALS: BP 140/73
--- NOTE | 2019-12-28 14:58 | NUR ---
PT AWAKE, ALERT. NO NEEDS STATED AT THIS TIME
[2019-12-28 16:00] VITALS: BP 151/73
[2019-12-28 20:00] VITALS: BP 119/61
--- NOTE | 2019-12-28 21:15 | NUR ---
SPOKE WITH DR. ADRIAN AT THIS TIME. PATIENT COMPLAINING OF SINUS CONGESTION. ORDER RECIEVED FROM [facility] NASAL SPRAY
--- NOTE | 2019-12-28 22:02 | NUR ---
PT TOOK NIGHT TIME PO MEDICATIONS WITHOUT DIFFICULTY
--- NOTE | 2019-12-28 22:10 | NUR ---
PATIENT REQUESTING SOMETHING TO CALM HER DOWN. NOTIFIED DR. ADRIAN THAT A FEW NIGHTS AGO SHE HAD ATIVAN 0,5MG IV. HE STATED SHE CAN HAVE THIS AGAIN, PO
--- NOTE | 2019-12-28 22:44 | NUR ---
ONE TIME DOSE OF ATIVAN GIVEN FOR PT COMPLAINTS OF ANXIETY. CALL LIGHT WITHIN REACH, WILL MONITOR
--- NOTE | 2019-12-28 23:30 | NUR ---
ONE TIME DOSE OF ATIVAN APPEARS EFFECTIVE PT SLEEPING
[2019-12-29] VITALS: BP 136/68
--- NOTE | 2019-12-29 01:03 | NUR ---
PRN TYLENOL GIVEN FOR PT COMPLAINTS OF A HEADACHE RATING IT 6/10. CALL LIGHT WITHIN REACH, WILL MONITOR
--- NOTE | 2019-12-29 02:00 | NUR ---
PRN TYLENOL APPEARS EFFECTIVE, PT SLEEPING
--- NOTE | 2019-12-29 02:56 | NUR ---
24 HR chart check completed.
--- NOTE | 2019-12-29 05:33 | NUR ---
PATIENT CONTINUES TO SLEEP. NO DISTRESS NOTED. BREATHING IS EASY AND REGULAR. CALL LIGHT WITHIN REACH, WILL MONITOR
[2019-12-29 06:26] LABS: BASO % 0.2 % (0.0-1.0); EOS # 0.2 10*3/uL (0.0-0.4); EOS % 4.1 % (1.0-4.0); HEMATOCRIT 39.3 % (37.0-47.0); LYMPH % 23.4 % (27.0-41.0); MEAN CELL VOLUME 96.3 fl (81.0-99.0); MEAN CORPUSCULAR HGB 31.4 pg (27.0-31.0); MEAN CORPUSCULAR HGB CONC 32.6 g/dl (33.0-37.0); MEAN PLATELET VOLUME 10.4 fl (9.6-12.3); MONO # 0.4 10*3/uL (0.1-1.0); MONO % 9.2 % (3.0-9.0); NEUT # 2.8 10*3/uL (2.3-7.9); NEUT % 62.6 % (47.0-73.0); PLATELET COUNT AUTOMATED 145 10*3/uL (130-400); RED BLOOD COUNT 4.08 10*6/uL (4.10-5.10); RED CELL DISTRI WIDTH 12.8 % (0-14.5); WHITE BLOOD COUNT 4.4 10*3/uL (4.8-10.8)
[2019-12-29 06:43] LABS: CREATININE 1.2 mg/dL (0.55-1.02)
--- NOTE | 2019-12-29 07:45 | NUR ---
PT/OT WAS ORDERED December ASSESSMENTS ARE NOT AVAIALBE. INDUSTRIAL SEWER FAXED UPDATES TO [facility] RESULTS.
[2019-12-29 08:00] VITALS: BP 131/59
--- NOTE | 2019-12-29 08:26 | NUR ---
SENT FOR TESETING FOR SWALLOW EVAL
--- NOTE | 2019-12-29 09:41 | NUR ---
RETURN FROM TESTING. IN BED RESTING. NO NEEDS STATED AT THIS TIME. PT REFUSE LOVENOX INJECTION THIS MORNING STATING "I DON'T REALLY NEED THAT", MEDICATION EXPLAINED. PT TO BE DISCHARGED LATER TODAY. PER SPEECH PT SHOULD FOLLOW MECHANICAL SOFT DIET, DIET ORDER CHANGED, DISCUSS WITH PARKER MORALES.
--- NOTE | 2019-12-29 11:49 | NUR ---
SPEECH THERAPY Patient referred for MBS due to patient complaints of difficulty swallowing. Patient admitted with primary diagnosis of generalized weakness with PMHx s/f CVA, anxiety disorder with psychotic features, coronary artery disease, a-fib, esophageal stricture, TIA, HTN, and gastritis. Patient interviewed prior to MBS. She was pleasant and cooperative and followed simple verbal directions. She reported difficulty swallowing, although she was not able to further elaborate and denied food getting stuck or coughing while eating. She also reported recent weight loss but not able to identify the amount. Oral mech exam revealed reduced lingual and labial strength, ROM, and coordination, with weak, non-productive cough. She was not able to elicit a volitional swallow. Per ED report, patient reported SOB for 1 week paired with trouble swallowing. She stated having "more trouble when she turns the AC on." Most recent CXR was unremarkable. Patient currently on regular diet with thin liquids. Patient administered barium coated applesauce, turkey sandwich, cookie, and nectar-like and thin liquid barium via cup. Patient demonstrated moderately increased mastication time across all trials of solids. She displayed piecemeal deglutition with multiple swallows required to clear the oral cavity. Delayed initiation of pharyngeal swallow to the level of the valleculae was observed across each trial of solid food items, however no penetration/aspiration observed across each trial. During trials of liquids, patient demonstrated naturally large sip size with multiple consecutive sips. No penetration or aspiration was observed across each trial of nectar-like and thin liquid barium. Mild oral residues remained following trials of food and liquid items across each trial. Patient presents with mild oropharyngeal dysphagia characterized by increased mastication time with piecemeal deglutition across each trial of solid food items. Pharyngeal swallow was delayed to the level of the valleculae for food items and further delayed to the level of the pyriform sinus during trials of liquids. No penetration/aspiration occurred throughout evaluation. Patient is recommended mechanical soft diet due to increased mastication with thin liquids. Compensatory and safe swallowing strategies are recommended, including taking small bites of food and small, single sips of liquid, moistening food to assist in mastication and oral transit, alternating between solids and liquids to reduce residues, and remaining upright for at least 30 minutes following a meal. Speech therapy to conduct follow up treatment to ensure safety and tolerance of recommended diet throughout a meal with adherence of safe swallowing strategies. Results and recommendations shared with patient and patient's nurse via phone who verbalized understanding. Thank you for your consultation. Salma Hu MA [facility] AD[facility]ATOR
[2019-12-29 12:00] VITALS: BP 135/50
--- NOTE | 2019-12-29 12:13 | NUR ---
PHYSICAL THERAPY Physical Therapy evaluation completed on 5E with full evaluation to follow. Low complexity PT evaluation per chart review and evaluation, [id number]. Recommend physical therapy per plan of care and SNF upon discharge. Thank you for this referral. Zohra Vickers,PT,DPT
--- NOTE | 2019-12-29 12:36 | NUR ---
[employer] INTER[employer] SPOKE WITH THE PATIENTS NIECE. PATIENTS NIECE WANTS HER TO BE REFERRED TO [facility]. [employer] WILL SPEAK WITH THE PATIENT AND CONFIRM WHERE SHE WANTS. [employer] WILL FAX REFERRAL TO [facility].
--- NOTE | 2019-12-29 12:49 | NUR ---
Occupational Therapy evaluation completed on 5E with full evaluation to follow. Recommend occupational therapy per plan of care and SNF upon discharge. Thank you for this referral. Mavis Mae OTR/L
--- NOTE | 2019-12-29 13:11 | NUR ---
GURWINDER SPOKE WITH RN. [facility] IS ABLE TO TRANSPORT THE PATIENT TODAY AT 3PM. RN STATED THIS IS FINE. GURWINDER NOTIFIED PATIENTS NIECE OF TRANSPORT TIME. WILL FAX DISCHARGE ORDERS TO [facility]ARY [facility].
--- NOTE | 2019-12-29 14:47 | NUR ---
MODESTO CALLED TO [facility] RN. PT TO BE DISCHARGED TODAY AT 1500
--- NOTE | 2019-12-29 14:50 | NUR ---
Discharge instructions reviewed with patient. Patient receptive and verbalizes understanding. Follow-up care arranged. Written instructions given to patient. IV REMOVED, PRESSURE DRESSING APPLIED. INSTRUCTIONS SENT WITH PATIENT TO PIEDAD DAWSON
--- NOTE | 2019-12-29 15:00 | NUR ---
PT DISCHARGE VIA WHEELCHAIR, [facility] G[facility] PICKING PATIENT UP
== END 2019-12-29 17:46 | disposition other institution (70) | DRG 690 ==
LOC: ED 15:19 → 5E 17:08 → EDHOLD 17:08 → 5E 19:32
PROVIDERS: Emergency Medicine; Internal Medicine; ADMIT Internal Medicine
PROC: BD1BYZZ Fluoroscopy of Mouth/Oropharynx using Other Contrast (ICD-10-PCS; principal; 2019-12-29)
DX: N39.0 Urinary tract infection, site not specified (principal); R54 Age-related physical debility; E87.6 Hypokalemia; I48.91 Unspecified atrial fibrillation; D64.9 Anemia, unspecified; E87.8 Other disorders of electrolyte and fluid balance, not elsewhere classified; N18.3 Chronic kidney disease, stage 3 (moderate); I12.9 Hypertensive chronic kidney disease with stage 1 through stage 4 chronic kidney disease, or unspecified chronic kidney disease; R13.10 Dysphagia, unspecified; M10.9 Gout, unspecified; F32.9 Major depressive disorder, single episode, unspecified; I25.10 Atherosclerotic heart disease of native coronary artery without angina pectoris; D72.819 Decreased white blood cell count, unspecified; Z96.653 Presence of artificial knee joint, bilateral; F41.1 Generalized anxiety disorder; Z87.19 Personal history of other diseases of the digestive system; Z88.6 Allergy status to analgesic agent; Z88.8 Allergy status to other drugs, medicaments and biological substances; Z86.73 Personal history of transient ischemic attack (TIA), and cerebral infarction without residual deficits; Z87.440 Personal history of urinary (tract) infections; I25.2 Old myocardial infarction; Z90.710 Acquired absence of both cervix and uterus; Z81.1 Family history of alcohol abuse and dependence; Z82.49 Family history of ischemic heart disease and other diseases of the circulatory system; Z82.5 Family history of asthma and other chronic lower respiratory diseases; Z79.899 Other long term (current) drug therapy; Z79.02 Long term (current) use of antithrombotics/antiplatelets; Z03.818 Encounter for observation for suspected exposure to other biological agents ruled out

== ENCOUNTER 2020-06-16 12:54 | Inpatient (IN) | payer MEDICARE ==
[~2020-06-16] VITALS: Ht 167.6 cm; Wt 60.0 kg
[2020-06-16 13:03] VITALS: BP 152/65
[2020-06-16 13:16] LABS: BASO % 0.3 % (0.0-1.0); EOS % 0.3 % (1.0-4.0); HEMATOCRIT 35.9 % (37.0-47.0); LYMPH # 0.5 10*3/uL (1.3-4.4); LYMPH % 12.3 % (27.0-41.0); MEAN CELL VOLUME 93.2 fl (81.0-99.0); MEAN CORPUSCULAR HGB 30.6 pg (27.0-31.0); MEAN CORPUSCULAR HGB CONC 32.9 g/dl (33.0-37.0); MEAN PLATELET VOLUME 10.2 fl (9.6-12.3); MONO # 0.3 10*3/uL (0.1-1.0); MONO % 8.4 % (3.0-9.0); NEUT % 77.7 % (47.0-73.0); PLATELET COUNT AUTOMATED 155 10*3/uL (130-400); RED BLOOD COUNT 3.85 10*6/uL (4.10-5.10); RED CELL DISTRI WIDTH 12.7 % (0-14.5); WHITE BLOOD COUNT 3.8 10*3/uL (4.8-10.8)
[2020-06-16 13:37] LABS: ACT PARTIAL THROMBO TIME 27.6 SECONDS (20.0-32.1); INTERNATIONAL NORM RATIO 1.2 (2.0-3.5)
[2020-06-16 13:43] LABS: ALKALINE PHOSPHATASE 78 U/L (45-117); BUN 14 mg/dl (7-24); CHLORIDE 111 mmol/L (98-107); CREATININE 0.87 mg/dL (0.55-1.02); POTASSIUM 2.7 mmol/L (3.5-5.1); SGOT/AST 21 IU/L (3-35); SGPT/ALT 26 U/L (12-78); SODIUM 144 mmol/L (136-145); TOTAL PROTEIN 6.5 gm/dL (6.4-8.2)
[2020-06-16 13:47] LABS: TROPONIN I 0.505 ng/ml (<0.045)
[2020-06-16 16:00] VITALS: BP 117/77
--- NOTE | 2020-06-16 16:02 | NUR ---
NOTIFIED DR AVELAR CLOTH PIECER DONNY OF THE CONSULT AND SHE STATES DR CHAMPION IS IN THE OFFICE TODAY AND SHE WOULD LET HIM KNOW OF THE CONSULT.
[2020-06-16] MEDS ORDERED: CARVEDILOL12.5 MG PO (16:50)
--- NOTE | 2020-06-16 17:00 | NUR ---
CALLED THE RESIDENT WITH CRITICAL TROPONIN LEVEL.
[2020-06-16 18:30] LABS: BILIRUBIN Negative (Negative); BLOOD Trace-Lysed (Negative); CLARITY Clear (Clear); COLOR Yellow (Yellow); GLUCOSE Negative (Negative); KETONE 1+ (Negative); LEUKO ESTERASE 1+ (Negative); NITRITE Negative (Negative); PH 6.5 (4.5-8.0); SPECIFIC GRAVITY 1.015 (1.001-1.030)
[2020-06-16 18:31] VITALS: BP 152/74
[2020-06-16 18:44] LABS: EPITHELIAL CELLS 0-2
--- NOTE | 2020-06-16 23:36 | NUR ---
PT DENIES WOUNDS, BUTTOCK RED BLANCHABLE AREA
[2020-06-17] VITALS (7 sets, daily range): BP systolic 117–154; BP diastolic 46–84
[2020-06-17 06:16] LABS: BASO % 0.2 % (0.0-1.0); EOS % 0.5 % (1.0-4.0); HEMATOCRIT 33.3 % (37.0-47.0); LYMPH # 0.7 10*3/uL (1.3-4.4); LYMPH % 16.3 % (27.0-41.0); MEAN CELL VOLUME 94.6 fl (81.0-99.0); MEAN CORPUSCULAR HGB CONC 32.7 g/dl (33.0-37.0); MEAN PLATELET VOLUME 10.3 fl (9.6-12.3); MONO # 0.4 10*3/uL (0.1-1.0); MONO % 10.4 % (3.0-9.0); NEUT # 2.9 10*3/uL (2.3-7.9); NEUT % 71.4 % (47.0-73.0); PLATELET COUNT AUTOMATED 177 10*3/uL (130-400); RED BLOOD COUNT 3.52 10*6/uL (4.10-5.10); RED CELL DISTRI WIDTH 12.8 % (0-14.5); WHITE BLOOD COUNT 4.1 10*3/uL (4.8-10.8)
[2020-06-17 06:41] LABS: ALBUMIN 2.7 gm/dl (3.1-4.5); BUN 16 mg/dl (7-24); CHLORIDE 115 mmol/L (98-107); POTASSIUM 2.9 mmol/L (3.5-5.1); SGPT/ALT 22 U/L (12-78); SODIUM 146 mmol/L (136-145)
[2020-06-17 06:44] LABS: ALKALINE PHOSPHATASE 71 U/L (45-117); CREATININE 0.78 mg/dL (0.55-1.02); SGOT/AST 19 IU/L (3-35)
--- NOTE | 2020-06-17 07:05 | NUR ---
NURSE REPORT ACCEPTED. PT RESTING WITH EYES CLOSED. NO VOICED COMPLAI NTS. VITALS STABLE. MEAL TRAY ORDERED. AWAITING BED ASSIGNMENT.
--- NOTE | 2020-06-17 09:45 | NUR ---
AYALA NOW CALLS TO INQUIRE ON PT CONDITION. I UPDATED THEM BEST I COULD FROM TEST RESUKLTS AND MY TWO VISITS TO BEDSIDE. PT WAS PROVIDED A BREAKFAST TRAY. STATED SHE DID NOT EAT DINNER AND WAS STILL "NOT HUNGRY". I DID HAND HER A PIECE OF TOAST AND SHE DRANK SOME ORANGE JUICE BUT DECLINED ANY MORE FOOD. MED PROVIDED. I WILL PROVIDE AN AIDE AT LUNCH TIME TO HAVE PT ASSISTED WITH EATING AN ENTIRE TRay if possiBLE.
--- NOTE | 2020-06-17 11:36 | NUR ---
PT NOW BEING ASSISTED TO EAT HER LUNCH TRAY WITH EDI GIL P.ALane AT THIS TIME. VITALS REMAIN STABLE. PT REMAINS AWAKE AND ALERT, NO CHANGES.
--- NOTE | 2020-06-17 13:00 | NUR ---
PT ASSISTED TO BEDSIDE TOILET. NO DYSPNEA WITH THE EXERTION. POX REMAINS 96-97% ON ROOM AIR. VITALS STABLE.
--- NOTE | 2020-06-17 16:30 | NUR ---
BED ASSIGNED 405/2 BUT "BED IS DIRTY" AND TO CALL AFTER 1730.
--- NOTE | 2020-06-17 16:36 | NUR ---
COMPLETE BED CHANGE FOR BOWEL AND BLADDER. PT STATES SHE HAD THE CALLBELL IN HAND BUT DIDN'T REALIZE SHE HAD BEEN INCONTINENT WHILE ASLEEP. ALL VITALS REMAIN =STABLE AND WITHIN NORMAL LIMITS. SHE DENIES FEELING SOB AT ALL AND IS NOT DYSPNEIC WHEN STANDING TO BEDSIDE TOILET.
--- NOTE | 2020-06-17 17:30 | NUR ---
ADMISSION BED 405/2 STILL HAS PATIENT IN IT, PT UNABLE TO BE SENT TO FLOOR.
--- NOTE | 2020-06-17 18:23 | NUR ---
PT'S INPATIENT BED REMAINS DIRTY, PT MAY NOT BE ADMITTED UNTIL LATER, AFTER 7PM.
--- NOTE | 2020-06-17 18:34 | NUR ---
DINNER TRAY ARRIVES AND PT WILL BE HELPED TO EAT IT BY EDI GIL P.ALane AT THIS TIME. TOILETING NEED TAKEN CARE OF AND VITALS REMAIN STABLE. NO VOICED COMPLAINTS.
--- NOTE | 2020-06-17 21:26 | NUR ---
Time: 2099 A 80 year old F admitted to 4E under services of ANISHA EPPERSON DO. Pt. arrived via stretcher from ER. Chief complaint: WEAKNESS. PT ADMITTED TO MED/SURG W/ DX OF PNEUMONIA, ELEVATED TROPONIN, POSSIBLE COVID PT ORIENTED TO ROOM ASSESSMENT COMPLETED. CALLED ATTENDING FOR CLARIFICATION OF ORDERS. PT A/O TO SELF AND SOME SITUATION BUT IS A POOR HISTORIAN, SLOW TO ANSWER DUE TO PREVIOUS STROKE BUT IS PLEASANT AND COOPERATIVE. LOYD,TIA
--- NOTE | 2020-06-17 21:39 | NUR ---
SPOKE TO DR APODACA REGARDING MED/SURG VS, TELEMTRY ADMISSION. AT THIS TIME DR APODACA STATES TO APPLY A MONITOR TO THE APT AND HE WOULD DISCUSS WITH THE AM TEAM HER STATUS. THIS RN TO NOTIFY MONITOR ROOM.
[2020-06-18] VITALS: BP 139/78
--- NOTE | 2020-06-18 00:45 | NUR ---
PT AMBULATED TO THE BATHROOM WITH AX1. PT HAS A SHUFFLING GATE. PT IS PLEASANT BUT VERBALIZES SHE IS EXPERIENING SOME ANXIETY. REVIEWED NON-PHARM TECHNIQUES TO HELP ALLLEVIATE ANXIETY. PT VERBALIZES HER UNDERSTANDING OF THIS.
--- NOTE | 2020-06-18 04:30 | NUR ---
PT RESTING WITH HER EYES CLOSED. PT VERBALIZES NO CONCERNS AT THIS TIME.
--- NOTE | 2020-06-18 05:35 | NUR ---
24 HR chart check completed.
[2020-06-18 06:58] LABS: EOS % 0.8 % (1.0-4.0); HEMATOCRIT 35.6 % (37.0-47.0); LYMPH # 0.6 10*3/uL (1.3-4.4); MEAN CELL VOLUME 94.9 fl (81.0-99.0); MEAN CORPUSCULAR HGB 31.2 pg (27.0-31.0); MEAN CORPUSCULAR HGB CONC 32.9 g/dl (33.0-37.0); MEAN PLATELET VOLUME 10.4 fl (9.6-12.3); MONO # 0.5 10*3/uL (0.1-1.0); MONO % 9.8 % (3.0-9.0); NEUT # 3.9 10*3/uL (2.3-7.9); NEUT % 76.2 % (47.0-73.0); PLATELET COUNT AUTOMATED 180 10*3/uL (130-400); RED BLOOD COUNT 3.75 10*6/uL (4.10-5.10); RED CELL DISTRI WIDTH 12.9 % (0-14.5); WHITE BLOOD COUNT 5.1 10*3/uL (4.8-10.8)
[2020-06-18 07:20] LABS: ALBUMIN 2.8 gm/dl (3.1-4.5); CREATININE 1.12 mg/dL (0.55-1.02); POTASSIUM 2.9 mmol/L (3.5-5.1)
[2020-06-18 08:00] VITALS: BP 165/64
--- NOTE | 2020-06-18 08:27 | NUR ---
PHYSICAL THERAPY Screen and PT eval received will follow thank you Ada Hilario PT
--- NOTE | 2020-06-18 09:00 | NUR ---
Wardrobe Assistant in to talk to patient. Patient states lives at home with alone. There are 7 steps in the home. Physician: erin gandhi [facility] services: none at present Patient's level of ADLs: MINIMAL ASSIST Patient has working utilities: all working DME: walker Follow-up physician's appointment after d/c: will be made by hospitalist nurse director upon discharge Does patient want to access PORTAL?: no Discharge plan attempted to contact patient by phone, no answer, case management contacted patient latrice Denton, who is also her POA, Corrie stated patient lives at home alone and hasn't been getting around well and also has not been eating or drinking. she stated patient has [facility] health, phyiscal therapy only but the services finished 3 weeks ago. discussed with Corrie patient going to a short term long term for 5 days of rehab and 24 hour care prior to returning home. Corrie stated patient was previously a patient of [facility] in December of this year, but she did not want her returning. discussed with her SNF options being limited due to patient being covid positive, but [facility] was accepting covid positive patients. Corrie was agreeable to a referral being made to [facility]. social security specialist will make referral, case management will follow. PASQUALE OLIVER
--- NOTE | 2020-06-18 09:28 | NUR ---
CLINICAL STAFF ANESTHESIOLOGIST EMAILED THIS PATIENTS REFERRAL TO [email or web address] FOR [facility]. PATIENT IS COVID +, WILL NEED PT/OT EVALS TO COMPLETE REFERRAL.
--- NOTE | 2020-06-18 11:05 | NUR ---
PHYSICAL THERAPY Physical Therapy evaluation completed on 4th floor with full evaluation to follow. Recommend physical therapy per plan of care and SNF upon discharge. Thank you for this referral. Ada Hilario PT
--- NOTE | 2020-06-18 11:08 | NUR ---
Occupational Therapy evaluation completed on four with full evaluation to follow. Recommend occupational therapy per plan of care and SNF upon discharge. Thank you for this referral. Lamar Odom OTR/L
--- NOTE | 2020-06-18 11:54 | NUR ---
[facility] ACCEPTED THIS PATIENT. PT/OT EVALS WILL NEED TO BE COMPLETED BEFORE DISCHARGING TODAY.
[2020-06-18 12:00] VITALS: BP 166/81
--- NOTE | 2020-06-18 12:01 | NUR ---
LEAD INSTALLER COMPLETED HENS.
--- NOTE | 2020-06-18 12:20 | NUR ---
SPEECH THERAPY Nursing screen received and chart review complete. Patient currently admitted with COVID-19 diagnosis with PMHx s/f CVA, a-fib, dysphagia, TIA, and dilation of esophagus. Recent CXR revelaed left basilar infiltrate. She was previously administered MBS in December 2019 and was recommended mechanical soft diet with thin liquids with use of compensatory safe swallowing strategies. A clinical bedside swallowing evaluation is recommended to further assess oropharyngeal swallow function due to hx of CVA and dysphagia. Please send orders for clinical bedside swallowing evaluation. Thank you. Salma Hu MA CCC-LENS BLANK GAUGER
[2020-06-18] MEDS ORDERED: XARE20MG PO (13:26)
[2020-06-18] MEDS ORDERED: DOXYCYCLINE100 M3 PO (13:35)
[2020-06-18] MEDS ORDERED: DECADRON6 M1 PO (13:44)
--- NOTE | 2020-06-18 15:50 | NUR ---
[facility] Discharge instructions reviewed with patient/family. Patient receptive and verbalizes understanding. Follow-up care arranged. Written instructions given to patient/family. REA MEADE
--- NOTE | 2020-06-21 09:16 | NUR ---
TELECOMMUNICATIONS CLERK RECEIVED VOICEMAIL FROM PATIENTS POA ABOUT THIS PATIENT BEING DISCHARGED AND HER NOT BEING NOTIFIED. TELECOMMUNICATIONS CLERK LOOKED THROUGH PATIENTS NOTE. NO NOTE WAS PLACED ABOUT DISCHARGING PATIENT. TELECOMMUNICATIONS CLERK CALLED PATIENTS RIGOEBRTO OLSON BACK AND APOLOGIZED. WHITNEY ACCEPTED THE APOLOGY. TELECOMMUNICATIONS CLERK INFORMED FOREST OFFICER CINTHYA CORDERO OF THIS SITUATION.
== END 2020-06-18 15:50 | disposition other institution (70) | DRG 177 ==
LOC: ED 12:54 → EDHOLD 14:19 → 4E 14:19 → EDHOLD 14:52 → 4E 06-17 18:16
PROVIDERS: Family Medicine; Internal Medicine; Registered Nurse; ADMIT Internal Medicine; ATTEND Internal Medicine
DX: U07.1 COVID-19 (principal); J15.6 Pneumonia due to other Gram-negative bacteria; E43 Unspecified severe protein-calorie malnutrition; I21.4 Non-ST elevation (NSTEMI) myocardial infarction; J12.89 Other viral pneumonia; D68.69 Other thrombophilia; E87.0 Hyperosmolality and hypernatremia; F41.1 Generalized anxiety disorder; E87.6 Hypokalemia; N18.30 Chronic kidney disease, stage 3 unspecified; M10.9 Gout, unspecified; I12.9 Hypertensive chronic kidney disease with stage 1 through stage 4 chronic kidney disease, or unspecified chronic kidney disease; E78.00 Pure hypercholesterolemia, unspecified; D64.9 Anemia, unspecified; F32.9 Major depressive disorder, single episode, unspecified; E83.41 Hypermagnesemia; E83.39 Other disorders of phosphorus metabolism; I48.0 Paroxysmal atrial fibrillation; I25.10 Atherosclerotic heart disease of native coronary artery without angina pectoris; Z86.73 Personal history of transient ischemic attack (TIA), and cerebral infarction without residual deficits; Z88.5 Allergy status to narcotic agent; Z88.8 Allergy status to other drugs, medicaments and biological substances; Z96.653 Presence of artificial knee joint, bilateral; Z90.710 Acquired absence of both cervix and uterus; Z82.49 Family history of ischemic heart disease and other diseases of the circulatory system; Z81.1 Family history of alcohol abuse and dependence; I25.2 Old myocardial infarction; Z79.01 Long term (current) use of anticoagulants; Z79.899 Other long term (current) drug therapy; Z68.21 Body mass index [BMI] 21.0-21.9, adult

== ENCOUNTER 2020-10-05 12:54 | Inpatient (IN) | payer MEDICARE ==
[~2020-10-05] VITALS: Ht 170.1 cm; Wt 60.4 kg
[~2020-10-05 12:54] MED LIST changes: +DECADRON6 M1 PO; +DOXYCYCLINE100 M3 PO; +XARE20MG PO
[2020-10-05 12:59] VITALS: BP 124/46
[2020-10-05 14:27] LABS: BASO % 0.2 % (0.0-1.0); EOS # 0.2 10*3/uL (0.0-0.4); EOS % 3.1 % (1.0-4.0); HEMATOCRIT 36.7 % (37.0-47.0); LYMPH # 0.9 10*3/uL (1.3-4.4); LYMPH % 15.4 % (27.0-41.0); MEAN CELL VOLUME 99.5 fl (81.0-99.0); MEAN CORPUSCULAR HGB CONC 32.2 g/dl (33.0-37.0); MEAN PLATELET VOLUME 10.2 fl (9.6-12.3); MONO # 0.5 10*3/uL (0.1-1.0); MONO % 8.5 % (3.0-9.0); NEUT # 4.2 10*3/uL (2.3-7.9); NEUT % 72.5 % (47.0-73.0); PLATELET COUNT AUTOMATED 127 10*3/uL (130-400); RED BLOOD COUNT 3.69 10*6/uL (4.10-5.10); RED CELL DISTRI WIDTH 12.6 % (0-14.5); WHITE BLOOD COUNT 5.8 10*3/uL (4.8-10.8)
[2020-10-05 14:39] LABS: ACT PARTIAL THROMBO TIME 30.4 SECONDS (20.0-32.1); INTERNATIONAL NORM RATIO 1.4 (2.0-3.5)
[2020-10-05 14:45] LABS: ALBUMIN 3.4 gm/dl (3.1-4.5); ALKALINE PHOSPHATASE 96 U/L (45-117); BUN 17 mg/dl (7-24); CHLORIDE 113 mmol/L (98-107); CREATININE 1.01 mg/dL (0.55-1.02); LIPASE 198 U/L (73-393); POTASSIUM 4.1 mmol/L (3.5-5.1); SGOT/AST 12 IU/L (3-35); SGPT/ALT 27 U/L (12-78); SODIUM 143 mmol/L (136-145); TOTAL PROTEIN 6.2 gm/dL (6.4-8.2)
[2020-10-05 16:32] VITALS: BP 166/64
[2020-10-05 17:00] VITALS: BP 155/69
[2020-10-05] MEDS ORDERED: SILENOR6 M1 PO (17:56)
[2020-10-05] MEDS ORDERED: NEURONTIN100 MG PO (17:56)
[2020-10-05] MEDS ORDERED: NAMENDA10 MG PO (17:57)
[2020-10-05] MEDS ORDERED: POTASSIUM CHLO20 ME3 PO (17:58)
[2020-10-05] MEDS ORDERED: ACETAMINOPHEN325 M2 PO (18:00)
[2020-10-05 20:00] VITALS: BP 156/67
[2020-10-06] VITALS: BP 151/61
[2020-10-06 06:35] LABS: BASO % 0.3 % (0.0-1.0); EOS # 0.2 10*3/uL (0.0-0.4); EOS % 3.8 % (1.0-4.0); HEMATOCRIT 32.2 % (37.0-47.0); LYMPH # 0.9 10*3/uL (1.3-4.4); LYMPH % 23.5 % (27.0-41.0); MEAN CORPUSCULAR HGB 32.3 pg (27.0-31.0); MEAN CORPUSCULAR HGB CONC 32.3 g/dl (33.0-37.0); MEAN PLATELET VOLUME 10.4 fl (9.6-12.3); MONO # 0.3 10*3/uL (0.1-1.0); MONO % 8.7 % (3.0-9.0); NEUT # 2.5 10*3/uL (2.3-7.9); NEUT % 63.4 % (47.0-73.0); PLATELET COUNT AUTOMATED 127 10*3/uL (130-400); RED BLOOD COUNT 3.22 10*6/uL (4.10-5.10); RED CELL DISTRI WIDTH 12.7 % (0-14.5); WHITE BLOOD COUNT 3.9 10*3/uL (4.8-10.8)
[2020-10-06 07:11] LABS: ALBUMIN 3.1 gm/dl (3.1-4.5); ALKALINE PHOSPHATASE 89 U/L (45-117); BUN 16 mg/dl (7-24); CHLORIDE 115 mmol/L (98-107); CREATININE 0.79 mg/dL (0.55-1.02); POTASSIUM 3.9 mmol/L (3.5-5.1); SGOT/AST 15 IU/L (3-35); SODIUM 145 mmol/L (136-145); TOTAL PROTEIN 5.5 gm/dL (6.4-8.2)
[2020-10-06 07:16] LABS: SGPT/ALT 25 U/L (12-78)
[2020-10-06 07:51] VITALS: BP 134/68
[2020-10-06 12:00] VITALS: BP 140/58
[2020-10-06 16:00] VITALS: BP 151/83
[2020-10-06 20:00] VITALS: BP 151/48
[2020-10-07] VITALS: BP 171/74
[2020-10-07 08:00] VITALS: BP 160/110; BP 180/66
[2020-10-07 09:25] VITALS: BP 168/64
[2020-10-07 12:00] VITALS: BP 155/61
[2020-10-07] MEDS ORDERED: RISPERIDONE2 M2 PO (12:54)
[2020-10-07] MEDS ORDERED: RISPERIDONE0.5 MG PO (12:54)
[2020-10-07 16:00] VITALS: BP 130/48
== END 2020-10-07 17:57 | DRG 312 ==
LOC: ED 12:54 → 5E 16:21 → EDHOLD 16:21 → 5E 16:48
PROVIDERS: Emergency Medicine; Registered Nurse; ADMIT Student in an Organized Health Care Education/Training Program; ATTEND Student in an Organized Health Care Education/Training Program
DX: R55 Syncope and collapse (principal); E44.0 Moderate protein-calorie malnutrition; D68.69 Other thrombophilia; F33.3 Major depressive disorder, recurrent, severe with psychotic symptoms; R54 Age-related physical debility; N18.31 Chronic kidney disease, stage 3a; M10.9 Gout, unspecified; Z96.653 Presence of artificial knee joint, bilateral; F41.1 Generalized anxiety disorder; I48.0 Paroxysmal atrial fibrillation; D64.9 Anemia, unspecified; G30.9 Alzheimer's disease, unspecified; I12.9 Hypertensive chronic kidney disease with stage 1 through stage 4 chronic kidney disease, or unspecified chronic kidney disease; Z20.822 Contact with and (suspected) exposure to COVID-19; F02.80 Dementia in other diseases classified elsewhere, unspecified severity, without behavioral disturbance, psychotic disturbance, mood disturbance, and anxiety; Z88.6 Allergy status to analgesic agent; Z90.710 Acquired absence of both cervix and uterus; Z81.1 Family history of alcohol abuse and dependence; Z82.49 Family history of ischemic heart disease and other diseases of the circulatory system; Z68.20 Body mass index [BMI] 20.0-20.9, adult

== ENCOUNTER 2021-01-15 17:12 | Inpatient (IN) | payer MEDICARE ==
[~2021-01-15] VITALS: Ht 170.2 cm; Wt 58.2 kg
[~2021-01-15 17:12] MED LIST changes: +NAMENDA10 MG PO; +NEURONTIN100 MG PO; +POTASSIUM CHLO20 ME3 PO; +RISPERIDONE0.5 MG PO; +SILENOR6 M1 PO
[2021-01-15 17:36] VITALS: BP 152/51
[2021-01-15 17:47] LABS: BASO % 0.3 % (0.0-1.0); EOS # 0.2 10*3/uL (0.0-0.4); HEMATOCRIT 34.8 % (37.0-47.0); LYMPH # 0.6 10*3/uL (1.3-4.4); LYMPH % 18.6 % (27.0-41.0); MEAN CELL VOLUME 100.6 fl (81.0-99.0); MEAN CORPUSCULAR HGB 32.4 pg (27.0-31.0); MEAN CORPUSCULAR HGB CONC 32.2 g/dl (33.0-37.0); MEAN PLATELET VOLUME 10.7 fl (9.6-12.3); MONO # 0.2 10*3/uL (0.1-1.0); MONO % 6.5 % (3.0-9.0); NEUT # 2.2 10*3/uL (2.3-7.9); NEUT % 69.3 % (47.0-73.0); PLATELET COUNT AUTOMATED 112 10*3/uL (130-400); RED BLOOD COUNT 3.46 10*6/uL (4.10-5.10); RED CELL DISTRI WIDTH 12.4 % (0-14.5); WHITE BLOOD COUNT 3.2 10*3/uL (4.8-10.8)
[2021-01-15 18:04] LABS: ALBUMIN 3.4 gm/dl (3.1-4.5); ALKALINE PHOSPHATASE 68 U/L (45-117); BUN 15 mg/dl (7-24); CHLORIDE 111 mmol/L (98-107); CREATININE 1.04 mg/dL (0.55-1.02); POTASSIUM 4.5 mmol/L (3.5-5.1); SGOT/AST 13 IU/L (3-35); SGPT/ALT 25 U/L (12-78); SODIUM 140 mmol/L (136-145); TOTAL PROTEIN 5.8 gm/dL (6.4-8.2)
[2021-01-15 18:06] LABS: TROPONIN I < 0.015 ng/ml (<0.045)
[2021-01-15 18:26] VITALS: BP 150/55
[2021-01-15 18:31] LABS: BILIRUBIN Negative (Negative); BLOOD 1+ (Negative); CLARITY Cloudy (Clear); COLOR Dark Yellow (Yellow); GLUCOSE Negative (Negative); KETONE Trace (Negative); LEUKO ESTERASE 1+ (Negative); NITRITE Negative (Negative); SPECIFIC GRAVITY 1.025 (1.001-1.030)
[2021-01-15 18:38] LABS: BACTERIA 3+; CALCIUM OXALATE CRYSTALS 1+; HYALINE CAST TNTC
[2021-01-15 19:42] VITALS: BP 119/57
[2021-01-15 21:16] VITALS: BP 148/45
[2021-01-15 21:30] VITALS: BP 154/64
[2021-01-16] VITALS: BP 156/57
[2021-01-16] MEDS ORDERED: CITALOPRAM10 MG PO (00:59)
[2021-01-16 06:21] LABS: BASO % 0.2 % (0.0-1.0); EOS # 0.2 10*3/uL (0.0-0.4); EOS % 4.1 % (1.0-4.0); HEMATOCRIT 32.8 % (37.0-47.0); LYMPH # 0.9 10*3/uL (1.3-4.4); LYMPH % 20.1 % (27.0-41.0); MEAN CELL VOLUME 100.3 fl (81.0-99.0); MEAN CORPUSCULAR HGB CONC 32.9 g/dl (33.0-37.0); MEAN PLATELET VOLUME 10.7 fl (9.6-12.3); MONO # 0.4 10*3/uL (0.1-1.0); MONO % 8.6 % (3.0-9.0); NEUT % 66.8 % (47.0-73.0); PLATELET COUNT AUTOMATED 110 10*3/uL (130-400); RED BLOOD COUNT 3.27 10*6/uL (4.10-5.10); RED CELL DISTRI WIDTH 12.6 % (0-14.5); WHITE BLOOD COUNT 4.4 10*3/uL (4.8-10.8)
[2021-01-16 06:56] LABS: CHLORIDE 112 mmol/L (98-107); POTASSIUM 3.8 mmol/L (3.5-5.1); SODIUM 144 mmol/L (136-145)
[2021-01-16 07:07] LABS: BUN 13 mg/dl (7-24)
[2021-01-16 08:00] VITALS: BP 155/85
[2021-01-16 12:00] VITALS: BP 178/63
[2021-01-16 16:00] VITALS: BP 141/79
[2021-01-16 20:00] VITALS: BP 169/79
[2021-01-17 06:28] LABS: BASO % 0.3 % (0.0-1.0); EOS # 0.1 10*3/uL (0.0-0.4); EOS % 2.8 % (1.0-4.0); HEMATOCRIT 32.3 % (37.0-47.0); LYMPH # 0.8 10*3/uL (1.3-4.4); LYMPH % 19.9 % (27.0-41.0); MEAN CELL VOLUME 99.1 fl (81.0-99.0); MEAN CORPUSCULAR HGB 32.8 pg (27.0-31.0); MEAN CORPUSCULAR HGB CONC 33.1 g/dl (33.0-37.0); MEAN PLATELET VOLUME 10.7 fl (9.6-12.3); MONO # 0.4 10*3/uL (0.1-1.0); MONO % 8.9 % (3.0-9.0); NEUT # 2.7 10*3/uL (2.3-7.9); NEUT % 67.8 % (47.0-73.0); PLATELET COUNT AUTOMATED 105 10*3/uL (130-400); RED BLOOD COUNT 3.26 10*6/uL (4.10-5.10); RED CELL DISTRI WIDTH 12.5 % (0-14.5); WHITE BLOOD COUNT 3.9 10*3/uL (4.8-10.8)
[2021-01-17 06:40] LABS: ALBUMIN 3.4 gm/dl (3.1-4.5); BUN 8 mg/dl (7-24); CHLORIDE 111 mmol/L (98-107); CREATININE 0.72 mg/dL (0.55-1.02); POTASSIUM 3.4 mmol/L (3.5-5.1); SGOT/AST 15 IU/L (3-35); SGPT/ALT 22 U/L (12-78); SODIUM 141 mmol/L (136-145)
[2021-01-17 06:42] LABS: ALKALINE PHOSPHATASE 69 U/L (45-117); TOTAL PROTEIN 5.7 gm/dL (6.4-8.2)
[2021-01-17 08:00] VITALS: BP 168/64
[2021-01-17 12:00] VITALS: BP 165/55
[2021-01-17 16:00] VITALS: BP 137/51
[2021-01-17 20:00] VITALS: BP 119/56
[2021-01-18] VITALS: BP 152/60
[2021-01-18 06:20] LABS: BASO % 0.3 % (0.0-1.0); EOS # 0.2 10*3/uL (0.0-0.4); EOS % 4.2 % (1.0-4.0); HEMATOCRIT 31.7 % (37.0-47.0); LYMPH # 1.1 10*3/uL (1.3-4.4); LYMPH % 31.7 % (27.0-41.0); MEAN CELL VOLUME 99.4 fl (81.0-99.0); MEAN CORPUSCULAR HGB 32.6 pg (27.0-31.0); MEAN CORPUSCULAR HGB CONC 32.8 g/dl (33.0-37.0); MEAN PLATELET VOLUME 10.3 fl (9.6-12.3); MONO # 0.4 10*3/uL (0.1-1.0); MONO % 11.3 % (3.0-9.0); NEUT # 1.8 10*3/uL (2.3-7.9); NEUT % 52.2 % (47.0-73.0); PLATELET COUNT AUTOMATED 102 10*3/uL (130-400); RED BLOOD COUNT 3.19 10*6/uL (4.10-5.10); RED CELL DISTRI WIDTH 12.7 % (0-14.5); WHITE BLOOD COUNT 3.5 10*3/uL (4.8-10.8)
[2021-01-18 06:31] LABS: BUN 9 mg/dl (7-24); CHLORIDE 111 mmol/L (98-107); CREATININE 0.85 mg/dL (0.55-1.02); POTASSIUM 3.8 mmol/L (3.5-5.1); SODIUM 142 mmol/L (136-145)
[2021-01-18 08:00] VITALS: BP 159/70
[2021-01-18 12:00] VITALS: BP 151/52
[2021-01-18 16:00] VITALS: BP 151/52; BP 166/56
== END 2021-01-18 17:42 | DRG 689 ==
LOC: ED 17:12 → 5E 20:31 → EDHOLD 20:31 → 5E 21:07
PROVIDERS: Internal Medicine; Physician Assistant; Social Worker Clinical; ADMIT Family Medicine; ATTEND Family Medicine
DX: N39.0 Urinary tract infection, site not specified (principal); N17.0 Acute kidney failure with tubular necrosis; D61.818 Other pancytopenia; E44.0 Moderate protein-calorie malnutrition; G45.9 Transient cerebral ischemic attack, unspecified; E86.0 Dehydration; R55 Syncope and collapse; E83.41 Hypermagnesemia; R31.9 Hematuria, unspecified; Z20.822 Contact with and (suspected) exposure to COVID-19; E87.8 Other disorders of electrolyte and fluid balance, not elsewhere classified; R73.9 Hyperglycemia, unspecified; I12.9 Hypertensive chronic kidney disease with stage 1 through stage 4 chronic kidney disease, or unspecified chronic kidney disease; M10.9 Gout, unspecified; I48.0 Paroxysmal atrial fibrillation; D64.9 Anemia, unspecified; F41.1 Generalized anxiety disorder; F32.9 Major depressive disorder, single episode, unspecified; I48.91 Unspecified atrial fibrillation; N18.31 Chronic kidney disease, stage 3a; F03.90 Unspecified dementia, unspecified severity, without behavioral disturbance, psychotic disturbance, mood disturbance, and anxiety; I25.2 Old myocardial infarction; Z68.20 Body mass index [BMI] 20.0-20.9, adult

== ENCOUNTER 2021-01-23 21:10 | Emergency (ER) | payer MEDICARE ==
[~2021-01-23] VITALS: Ht 172.7 cm; Wt 68.0 kg
[~2021-01-23 21:10] MED LIST changes: +CITALOPRAM10 MG PO
[2021-01-23 21:47] LABS: BASO % 0.3 % (0.0-1.0); EOS # 0.2 10*3/uL (0.0-0.4); EOS % 3.8 % (1.0-4.0); HEMATOCRIT 36.2 % (37.0-47.0); LYMPH # 0.9 10*3/uL (1.3-4.4); LYMPH % 21.4 % (27.0-41.0); MEAN CELL VOLUME 100.8 fl (81.0-99.0); MEAN CORPUSCULAR HGB 32.6 pg (27.0-31.0); MEAN CORPUSCULAR HGB CONC 32.3 g/dl (33.0-37.0); MEAN PLATELET VOLUME 10.1 fl (9.6-12.3); MONO # 0.3 10*3/uL (0.1-1.0); MONO % 7.6 % (3.0-9.0); NEUT # 2.7 10*3/uL (2.3-7.9); NEUT % 66.6 % (47.0-73.0); PLATELET COUNT AUTOMATED 111 10*3/uL (130-400); RED BLOOD COUNT 3.59 10*6/uL (4.10-5.10); RED CELL DISTRI WIDTH 12.8 % (0-14.5)
[2021-01-23 21:58] LABS: ACT PARTIAL THROMBO TIME 27.6 SECONDS (20.0-32.1); INTERNATIONAL NORM RATIO 1.3 (2.0-3.5)
[2021-01-23 22:04] LABS: ALBUMIN 3.6 gm/dl (3.1-4.5); ALKALINE PHOSPHATASE 73 U/L (45-117); BUN 18 mg/dl (7-24); CHLORIDE 110 mmol/L (98-107); CREATININE 1.15 mg/dL (0.55-1.02); SGOT/AST 13 IU/L (3-35); SGPT/ALT 19 U/L (12-78); SODIUM 140 mmol/L (136-145); TOTAL PROTEIN 6.1 gm/dL (6.4-8.2)
[2021-01-23 22:05] LABS: CPK 54 U/L (26-192)
[2021-01-23 22:08] LABS: TROPONIN I < 0.015 ng/ml (<0.045)
[2021-01-24 00:30] VITALS: BP 119/70
== END 2021-01-24 04:05 | disposition home or self-care (01) ==
LOC: ED 21:10
PROVIDERS: Emergency Medicine
DX: R13.10 Dysphagia, unspecified (principal); R29.810 Facial weakness; R06.02 Shortness of breath; I48.91 Unspecified atrial fibrillation; F03.90 Unspecified dementia, unspecified severity, without behavioral disturbance, psychotic disturbance, mood disturbance, and anxiety; I25.2 Old myocardial infarction; Z86.73 Personal history of transient ischemic attack (TIA), and cerebral infarction without residual deficits; F32.9 Major depressive disorder, single episode, unspecified; I12.9 Hypertensive chronic kidney disease with stage 1 through stage 4 chronic kidney disease, or unspecified chronic kidney disease; N18.30 Chronic kidney disease, stage 3 unspecified; Z88.8 Allergy status to other drugs, medicaments and biological substances; Z88.6 Allergy status to analgesic agent; Z79.899 Other long term (current) drug therapy; Z96.653 Presence of artificial knee joint, bilateral; Z90.89 Acquired absence of other organs; Z90.711 Acquired absence of uterus with remaining cervical stump

== ENCOUNTER 2021-03-21 20:32 | Inpatient (IN) | payer MEDICARE ==
[~2021-03-21] VITALS: Ht 170.1 cm; Wt 57.7 kg
[2021-03-21 20:33] VITALS: BP 186/75
[2021-03-21 20:55] LABS: EOS # 0.1 10*3/uL (0.0-0.4); EOS % 3.2 % (1.0-4.0); MEAN CELL VOLUME 101.3 fl (81.0-99.0); MEAN CORPUSCULAR HGB 32.9 pg (27.0-31.0); MEAN CORPUSCULAR HGB CONC 32.5 g/dl (33.0-37.0); MEAN PLATELET VOLUME 10.6 fl (9.6-12.3); MONO # 0.3 10*3/uL (0.1-1.0); MONO % 9.5 % (3.0-9.0); NEUT # 1.8 10*3/uL (2.3-7.9); NEUT % 57.3 % (47.0-73.0); PLATELET COUNT AUTOMATED 95 10*3/uL (130-400); RED BLOOD COUNT 3.16 10*6/uL (4.10-5.10); RED CELL DISTRI WIDTH 12.3 % (0-14.5); WHITE BLOOD COUNT 3.2 10*3/uL (4.8-10.8)
[2021-03-21 21:09] LABS: BUN 20 mg/dl (7-24); CHLORIDE 110 mmol/L (98-107); CREATININE 0.81 mg/dL (0.55-1.02); POTASSIUM 3.9 mmol/L (3.5-5.1); SODIUM 142 mmol/L (136-145)
[2021-03-21 21:13] LABS: BILIRUBIN 2+ (Negative); BLOOD 2+ (Negative); CLARITY Turbid (Clear); GLUCOSE Negative (Negative); LEUKO ESTERASE 3+ (Negative); NITRITE Positive (Negative); SPECIFIC GRAVITY 1.015 (1.001-1.030); UROBILINOGEN 0.2 E.U./dl (0.0-1.0)
[2021-03-21 21:16] LABS: COLOR Red (Yellow)
[2021-03-21 21:21] LABS: KETONE Negative (Negative)
[2021-03-21 21:27] LABS: RBC TNTC rbc/hpf (0-2)
[2021-03-21 23:31] VITALS: BP 192/72
[2021-03-21 23:50] VITALS: BP 184/70
[2021-03-22] VITALS (20 sets, daily range): BP systolic 105–207; BP diastolic 46–92
[2021-03-22] MEDS ORDERED: ASPIRIN CHEWABL81 MG PO (05:13)
[2021-03-22 05:17] LABS: ALBUMIN 3.2 gm/dl (3.1-4.5); ALKALINE PHOSPHATASE 58 U/L (45-117); BUN 15 mg/dl (7-24); CHLORIDE 112 mmol/L (98-107); CREATININE 0.77 mg/dL (0.55-1.02); POTASSIUM 3.7 mmol/L (3.5-5.1); SGOT/AST 13 IU/L (3-35); SGPT/ALT 19 U/L (12-78); SODIUM 145 mmol/L (136-145); TOTAL PROTEIN 5.4 gm/dL (6.4-8.2)
[2021-03-22 06:13] LABS: EOS # 0.1 10*3/uL (0.0-0.4); EOS % 4.2 % (1.0-4.0); HEMATOCRIT 32.9 % (37.0-47.0); LYMPH # 0.8 10*3/uL (1.3-4.4); LYMPH % 26.7 % (27.0-41.0); MEAN CELL VOLUME 102.8 fl (81.0-99.0); MEAN CORPUSCULAR HGB 32.8 pg (27.0-31.0); MEAN CORPUSCULAR HGB CONC 31.9 g/dl (33.0-37.0); MONO # 0.3 10*3/uL (0.1-1.0); MONO % 10.4 % (3.0-9.0); NEUT # 1.8 10*3/uL (2.3-7.9); NEUT % 58.4 % (47.0-73.0); PLATELET COUNT AUTOMATED 104 10*3/uL (130-400); RED CELL DISTRI WIDTH 12.1 % (0-14.5); WHITE BLOOD COUNT 3.1 10*3/uL (4.8-10.8)
[2021-03-22 06:25] LABS: ACT PARTIAL THROMBO TIME 28.3 SECONDS (20.0-32.1); INTERNATIONAL NORM RATIO 1.2 (2.0-3.5)
[2021-03-23] VITALS: BP 94/53
[2021-03-23 08:00] VITALS: BP 112/50
[2021-03-23 08:18] LABS: BASO % 0.3 % (0.0-1.0); EOS # 0.1 10*3/uL (0.0-0.4); EOS % 3.5 % (1.0-4.0); HEMATOCRIT 31.7 % (37.0-47.0); LYMPH # 0.7 10*3/uL (1.3-4.4); LYMPH % 20.6 % (27.0-41.0); MEAN CELL VOLUME 102.3 fl (81.0-99.0); MEAN CORPUSCULAR HGB 32.9 pg (27.0-31.0); MEAN CORPUSCULAR HGB CONC 32.2 g/dl (33.0-37.0); MEAN PLATELET VOLUME 10.8 fl (9.6-12.3); MONO # 0.3 10*3/uL (0.1-1.0); MONO % 8.3 % (3.0-9.0); NEUT # 2.3 10*3/uL (2.3-7.9); PLATELET COUNT AUTOMATED 110 10*3/uL (130-400); RED CELL DISTRI WIDTH 12.2 % (0-14.5); WHITE BLOOD COUNT 3.4 10*3/uL (4.8-10.8)
[2021-03-23 12:00] VITALS: BP 127/62
== END 2021-03-23 16:30 | DRG 689 ==
LOC: ED 20:32 → 4E 22:33 → EDHOLD 22:33 → 4E 03-22 15:05
PROVIDERS: Hospitalist; Internal Medicine; ADMIT Internal Medicine; ATTEND Internal Medicine
DX: N30.01 Acute cystitis with hematuria (principal); G93.41 Metabolic encephalopathy; D61.818 Other pancytopenia; F33.9 Major depressive disorder, recurrent, unspecified; I16.0 Hypertensive urgency; E86.0 Dehydration; M1A.9XX0 Chronic gout, unspecified, without tophus (tophi); Z88.5 Allergy status to narcotic agent; D53.9 Nutritional anemia, unspecified; I12.9 Hypertensive chronic kidney disease with stage 1 through stage 4 chronic kidney disease, or unspecified chronic kidney disease; Z96.653 Presence of artificial knee joint, bilateral; I48.0 Paroxysmal atrial fibrillation; N18.31 Chronic kidney disease, stage 3a; F41.1 Generalized anxiety disorder; F03.90 Unspecified dementia, unspecified severity, without behavioral disturbance, psychotic disturbance, mood disturbance, and anxiety; Z20.822 Contact with and (suspected) exposure to COVID-19; Z88.8 Allergy status to other drugs, medicaments and biological substances; Z90.710 Acquired absence of both cervix and uterus; Z82.49 Family history of ischemic heart disease and other diseases of the circulatory system; Z86.73 Personal history of transient ischemic attack (TIA), and cerebral infarction without residual deficits; I25.2 Old myocardial infarction; Z79.1 Long term (current) use of non-steroidal anti-inflammatories (NSAID); Z79.82 Long term (current) use of aspirin; Z79.899 Other long term (current) drug therapy

== ENCOUNTER 2021-06-26 09:18 | Emergency (ER) | payer MEDICARE ==
[~2021-06-26] VITALS: Wt 56.2 kg
[~2021-06-26 09:18] MED LIST changes: +ASPIRIN CHEWABL81 MG PO
[2021-06-26 09:48] LABS: BASO % 0.2 % (0.0-1.0); EOS # 0.1 10*3/uL (0.0-0.4); EOS % 1.5 % (1.0-4.0); HEMATOCRIT 34.1 % (37.0-47.0); LYMPH # 0.7 10*3/uL (1.3-4.4); LYMPH % 14.8 % (27.0-41.0); MEAN CELL VOLUME 101.5 fl (81.0-99.0); MEAN CORPUSCULAR HGB 32.1 pg (27.0-31.0); MEAN CORPUSCULAR HGB CONC 31.7 g/dl (33.0-37.0); MEAN PLATELET VOLUME 10.7 fl (9.6-12.3); MONO # 0.3 10*3/uL (0.1-1.0); MONO % 5.4 % (3.0-9.0); NEUT # 3.6 10*3/uL (2.3-7.9); NEUT % 77.9 % (47.0-73.0); PLATELET COUNT AUTOMATED 93 10*3/uL (130-400); RED BLOOD COUNT 3.36 10*6/uL (4.10-5.10); RED CELL DISTRI WIDTH 12.8 % (0-14.5); WHITE BLOOD COUNT 4.7 10*3/uL (4.8-10.8)
[2021-06-26 09:59] LABS: ACT PARTIAL THROMBO TIME 25.9 SECONDS (20.0-32.1); INTERNATIONAL NORM RATIO 1.2 (2.0-3.5)
[2021-06-26 10:06] LABS: ALBUMIN 3.2 gm/dl (3.1-4.5); ALKALINE PHOSPHATASE 66 U/L (45-117); BUN 16 mg/dl (7-24); CHLORIDE 111 mmol/L (98-107); CREATININE 1.04 mg/dL (0.55-1.02); POTASSIUM 4.2 mmol/L (3.5-5.1); SGOT/AST 25 IU/L (3-35); SGPT/ALT 33 U/L (12-78); SODIUM 145 mmol/L (136-145); TOTAL PROTEIN 5.7 gm/dL (6.4-8.2)
[2021-06-26 12:17] LABS: BILIRUBIN Negative (Negative); BLOOD Negative (Negative); CLARITY Clear (Clear); COLOR Yellow (Yellow); GLUCOSE Negative (Negative); KETONE Trace (Negative); LEUKO ESTERASE Negative (Negative); NITRITE Negative (Negative); PH 5.5 (4.5-8.0)
[2021-06-26 12:27] LABS: BACTERIA 3+
[2021-06-26 12:28] LABS: MUCOUS 2+
[2021-06-26 12:36] LABS: URINE AMPHETAMINES < 1000 (1000ng/ml); URINE BARBITURATES < 200 (200ng/ml); URINE BENZODIAZEPINES < 200 (200ng/ml); URINE CANNABINOIDS (THC) < 50 (50ng/ml); URINE COCAINE < 300 (300ng/ml); URINE METHADONE < 300 (300ng/ml); URINE OPIATES < 300 (300ng/ml)
[2021-06-26 12:38] LABS: URINE PHENCYCLIDINE < 25 (25ng/ml)
[2021-06-26 12:51] VITALS: BP 156/80
== END 2021-06-26 21:09 | disposition home or self-care (01) ==
LOC: ED 09:18
PROVIDERS: Emergency Medicine
DX: R00.1 Bradycardia, unspecified (principal)

== ENCOUNTER 2021-07-25 21:59 | Inpatient (IN) | payer MEDICARE ==
[~2021-07-25] VITALS: Ht 168 cm; Wt 56.0 kg
[2021-07-25 22:02] VITALS: BP 129/59
[2021-07-25 22:33] LABS: EOS # 0.1 10*3/uL (0.0-0.4); EOS % 2.8 % (1.0-4.0); HEMATOCRIT 29.5 % (37.0-47.0); LYMPH # 1.1 10*3/uL (1.3-4.4); LYMPH % 24.1 % (27.0-41.0); MEAN CELL VOLUME 101.7 fl (81.0-99.0); MEAN CORPUSCULAR HGB 32.1 pg (27.0-31.0); MEAN CORPUSCULAR HGB CONC 31.5 g/dl (33.0-37.0); MONO # 0.4 10*3/uL (0.1-1.0); MONO % 8.2 % (3.0-9.0); NEUT % 64.7 % (47.0-73.0); PLATELET COUNT AUTOMATED 110 10*3/uL (130-400); RED CELL DISTRI WIDTH 13.5 % (0-14.5); WHITE BLOOD COUNT 4.6 10*3/uL (4.8-10.8)
[2021-07-25 22:33] LABS: BILIRUBIN Negative (Negative); BLOOD Negative (Negative); CLARITY Cloudy (Clear); COLOR Dark Yellow (Yellow); GLUCOSE Negative (Negative); KETONE Trace (Negative); LEUKO ESTERASE 1+ (Negative); NITRITE Negative (Negative); SPECIFIC GRAVITY >= 1.030 (1.001-1.030)
[2021-07-25 22:43] LABS: CALCIUM OXALATE CRYSTALS Trace; EPITHELIAL CELLS TNTC
[2021-07-25 22:50] LABS: ALBUMIN 2.4 gm/dl (3.1-4.5); ALKALINE PHOSPHATASE 52 U/L (45-117); BUN 19 mg/dl (7-24); CHLORIDE 113 mmol/L (98-107); CREATININE 0.91 mg/dL (0.55-1.02); POTASSIUM 4.1 mmol/L (3.5-5.1); SGOT/AST 16 IU/L (3-35); SGPT/ALT 17 U/L (12-78); SODIUM 144 mmol/L (136-145); TOTAL PROTEIN 4.8 gm/dL (6.4-8.2)
[2021-07-26] VITALS (8 sets, daily range): BP systolic 110–187; BP diastolic 55–74
[2021-07-26 07:27] LABS: BASO % 0.2 % (0.0-1.0); EOS # 0.2 10*3/uL (0.0-0.4); EOS % 4.4 % (1.0-4.0); HEMATOCRIT 34.1 % (37.0-47.0); LYMPH % 23.8 % (27.0-41.0); MEAN CELL VOLUME 100.3 fl (81.0-99.0); MEAN CORPUSCULAR HGB 32.1 pg (27.0-31.0); MEAN PLATELET VOLUME 10.6 fl (9.6-12.3); MONO # 0.3 10*3/uL (0.1-1.0); MONO % 8.1 % (3.0-9.0); NEUT # 2.6 10*3/uL (2.3-7.9); NEUT % 63.3 % (47.0-73.0); PLATELET COUNT AUTOMATED 116 10*3/uL (130-400); RED CELL DISTRI WIDTH 13.3 % (0-14.5); WHITE BLOOD COUNT 4.1 10*3/uL (4.8-10.8)
[2021-07-26 07:42] LABS: BUN 15 mg/dl (7-24); CHLORIDE 112 mmol/L (98-107); CHOLESTEROL 94 mg/dL (<200); CREATININE 0.75 mg/dL (0.55-1.02); POTASSIUM 3.7 mmol/L (3.5-5.1); SGOT/AST 11 IU/L (3-35); SGPT/ALT 18 U/L (12-78); SODIUM 145 mmol/L (136-145); TOTAL PROTEIN 5.6 gm/dL (6.4-8.2); TRIGLYCERIDES 55 mg/dl (<150)
[2021-07-26 07:42] LABS: ACT PARTIAL THROMBO TIME 30.5 SECONDS (20.0-32.1); INTERNATIONAL NORM RATIO 1.1 (2.0-3.5)
[2021-07-26 07:47] LABS: ALKALINE PHOSPHATASE 58 U/L (45-117); LDL CHOLESTEROL 22 mg/dL (9-159)
[2021-07-27 01:51] VITALS: BP 178/76
[2021-07-27 02:30] VITALS: BP 158/70
[2021-07-27 06:58] LABS: EOS # 0.1 10*3/uL (0.0-0.4); EOS % 1.3 % (1.0-4.0); HEMATOCRIT 35.7 % (37.0-47.0); LYMPH # 0.6 10*3/uL (1.3-4.4); LYMPH % 11.9 % (27.0-41.0); MEAN CORPUSCULAR HGB 31.9 pg (27.0-31.0); MEAN CORPUSCULAR HGB CONC 31.9 g/dl (33.0-37.0); MEAN PLATELET VOLUME 10.5 fl (9.6-12.3); MONO # 0.4 10*3/uL (0.1-1.0); MONO % 7.8 % (3.0-9.0); NEUT # 3.7 10*3/uL (2.3-7.9); NEUT % 78.8 % (47.0-73.0); PLATELET COUNT AUTOMATED 123 10*3/uL (130-400); RED BLOOD COUNT 3.57 10*6/uL (4.10-5.10); RED CELL DISTRI WIDTH 13.1 % (0-14.5); WHITE BLOOD COUNT 4.6 10*3/uL (4.8-10.8)
[2021-07-27 07:05] LABS: BUN 13 mg/dl (7-24); CHLORIDE 107 mmol/L (98-107); CREATININE 0.92 mg/dL (0.55-1.02); POTASSIUM 3.5 mmol/L (3.5-5.1); SODIUM 142 mmol/L (136-145)
[2021-07-27 08:00] VITALS: BP 115/60
[2021-07-27 12:00] VITALS: BP 100/60
[2021-07-27] MEDS ORDERED: METOPROLOL SUCC50 M1 PO (15:12)
[2021-07-27 16:00] VITALS: BP 110/60
== END 2021-07-27 17:07 | DRG 64 ==
LOC: ED 21:59 → 4E 07-26 00:04 → EDHOLD 07-26 00:04 → 4E 07-26 05:19
PROVIDERS: Internal Medicine; ADMIT Student in an Organized Health Care Education/Training Program; ATTEND Student in an Organized Health Care Education/Training Program
DX: I63.9 Cerebral infarction, unspecified (principal); E43 Unspecified severe protein-calorie malnutrition; I47.1 Supraventricular tachycardia; Z68.1 Body mass index [BMI] 19.9 or less, adult; N18.31 Chronic kidney disease, stage 3a; R29.702 NIHSS score 2; R13.10 Dysphagia, unspecified; D53.9 Nutritional anemia, unspecified; Z20.822 Contact with and (suspected) exposure to COVID-19; E87.8 Other disorders of electrolyte and fluid balance, not elsewhere classified; I48.0 Paroxysmal atrial fibrillation; I12.9 Hypertensive chronic kidney disease with stage 1 through stage 4 chronic kidney disease, or unspecified chronic kidney disease; F32.A Depression, unspecified; F41.1 Generalized anxiety disorder; F03.90 Unspecified dementia, unspecified severity, without behavioral disturbance, psychotic disturbance, mood disturbance, and anxiety; I25.2 Old myocardial infarction; Z88.5 Allergy status to narcotic agent; Z88.8 Allergy status to other drugs, medicaments and biological substances; Z82.49 Family history of ischemic heart disease and other diseases of the circulatory system; Z86.73 Personal history of transient ischemic attack (TIA), and cerebral infarction without residual deficits; Z79.1 Long term (current) use of non-steroidal anti-inflammatories (NSAID); Z79.82 Long term (current) use of aspirin; Z79.899 Other long term (current) drug therapy

== ENCOUNTER 2021-07-28 01:08 | Emergency (ER) | payer MEDICARE ==
[~2021-07-28] VITALS: Ht 162.5 cm; Wt 63.5 kg
[~2021-07-28 01:08] MED LIST changes: +METOPROLOL SUCC50 M1 PO
[2021-07-28 03:13] LABS: EOS # 0.1 10*3/uL (0.0-0.4); EOS % 2.5 % (1.0-4.0); HEMATOCRIT 32.8 % (37.0-47.0); LYMPH # 0.9 10*3/uL (1.3-4.4); MEAN CORPUSCULAR HGB 32.3 pg (27.0-31.0); MEAN CORPUSCULAR HGB CONC 32.3 g/dl (33.0-37.0); MONO # 0.4 10*3/uL (0.1-1.0); NEUT # 3.4 10*3/uL (2.3-7.9); NEUT % 70.3 % (47.0-73.0); PLATELET COUNT AUTOMATED 114 10*3/uL (130-400); RED BLOOD COUNT 3.28 10*6/uL (4.10-5.10); RED CELL DISTRI WIDTH 13.1 % (0-14.5); WHITE BLOOD COUNT 4.8 10*3/uL (4.8-10.8)
[2021-07-28 03:30] LABS: ALBUMIN 3.1 gm/dl (3.1-4.5); ALKALINE PHOSPHATASE 54 U/L (45-117); BUN 13 mg/dl (7-24); CHLORIDE 111 mmol/L (98-107); CREATININE 0.81 mg/dL (0.55-1.02); POTASSIUM 3.7 mmol/L (3.5-5.1); SGOT/AST 16 IU/L (3-35); SGPT/ALT 21 U/L (12-78); SODIUM 145 mmol/L (136-145); TOTAL PROTEIN 5.5 gm/dL (6.4-8.2)
[2021-07-28 03:39] LABS: BILIRUBIN Negative (Negative); BLOOD Negative (Negative); CLARITY Clear (Clear); COLOR Yellow (Yellow); GLUCOSE Negative (Negative); KETONE Negative (Negative); LEUKO ESTERASE Negative (Negative); NITRITE Negative (Negative); PH 6.5 (4.5-8.0); SPECIFIC GRAVITY <= 1.005 (1.001-1.030); UROBILINOGEN 0.2 E.U./dl (0.0-1.0)
[2021-07-28 04:04] LABS: RBC 0-2 rbc/hpf (0-2); WBC 0-2 wbc/hpf (0-5)
[2021-07-28 04:18] VITALS: BP 163/64
== END 2021-07-28 08:50 ==
LOC: ED 01:08
PROVIDERS: Emergency Medicine
DX: F03.90 Unspecified dementia, unspecified severity, without behavioral disturbance, psychotic disturbance, mood disturbance, and anxiety (principal); M10.9 Gout, unspecified; I10 Essential (primary) hypertension; I48.91 Unspecified atrial fibrillation; Z88.6 Allergy status to analgesic agent; Z79.899 Other long term (current) drug therapy; Z79.82 Long term (current) use of aspirin; Z86.73 Personal history of transient ischemic attack (TIA), and cerebral infarction without residual deficits

== ENCOUNTER 2021-08-29 22:25 | Emergency (ER) | payer MEDICARE ==
[~2021-08-29] VITALS: Ht 165.1 cm; Wt 56.7 kg
[2021-08-29 22:26] VITALS: BP 155/63
[2021-08-29 22:41] LABS: BASO % 0.3 % (0.0-1.0); EOS # 0.1 10*3/uL (0.0-0.4); EOS % 3.4 % (1.0-4.0); HEMATOCRIT 33.2 % (37.0-47.0); LYMPH % 30.6 % (27.0-41.0); MEAN CELL VOLUME 101.2 fl (81.0-99.0); MEAN CORPUSCULAR HGB CONC 31.6 g/dl (33.0-37.0); MEAN PLATELET VOLUME 9.9 fl (9.6-12.3); MONO # 0.2 10*3/uL (0.1-1.0); MONO % 7.2 % (3.0-9.0); NEUT # 1.9 10*3/uL (2.3-7.9); NEUT % 58.2 % (47.0-73.0); PLATELET COUNT AUTOMATED 114 10*3/uL (130-400); RED BLOOD COUNT 3.28 10*6/uL (4.10-5.10); RED CELL DISTRI WIDTH 13.1 % (0-14.5); WHITE BLOOD COUNT 3.2 10*3/uL (4.8-10.8)
[2021-08-29 22:59] LABS: CREATININE 1.28 mg/dL (0.55-1.02); POTASSIUM 4.9 mmol/L (3.5-5.1); TOTAL PROTEIN 6.2 gm/dL (6.4-8.2)
[2021-08-29 23:26] LABS: BILIRUBIN Negative (Negative); BLOOD Negative (Negative); CLARITY Clear (Clear); COLOR Yellow (Yellow); GLUCOSE Negative (Negative); KETONE Negative (Negative); LEUKO ESTERASE Negative (Negative); NITRITE Negative (Negative); PH 6.5 (4.5-8.0); UROBILINOGEN 0.2 E.U./dl (0.0-1.0)
[2021-08-29 23:43] LABS: RBC 0-2 rbc/hpf (0-2); WBC 0-2 wbc/hpf (0-5)
== END 2021-08-30 01:20 ==
LOC: ED 22:25
PROVIDERS: Internal Medicine
DX: R00.1 Bradycardia, unspecified (principal); D75.89 Other specified diseases of blood and blood-forming organs; D61.818 Other pancytopenia; N18.32 Chronic kidney disease, stage 3b; Z88.8 Allergy status to other drugs, medicaments and biological substances; Z79.899 Other long term (current) drug therapy; Z79.82 Long term (current) use of aspirin; Z98.890 Other specified postprocedural states; Z90.49 Acquired absence of other specified parts of digestive tract; Z90.710 Acquired absence of both cervix and uterus

== ENCOUNTER 2021-09-26 10:47 | Inpatient (IN) | payer MEDICARE ==
[2021-09-26] VITALS (13 sets, daily range): BP systolic 120–154; BP diastolic 35–94
[~2021-09-26] VITALS: Ht 170.2 cm; Wt 54.9 kg
[2021-09-26 14:26] LABS: ALKALINE PHOSPHATASE 52 U/L (45-117); BUN 18 mg/dl (7-24); CHLORIDE 115 mmol/L (98-107); CREATININE 0.67 mg/dL (0.55-1.02); POTASSIUM 4.2 mmol/L (3.5-5.1); SGOT/AST 16 IU/L (3-35); SGPT/ALT 22 U/L (12-78); SODIUM 145 mmol/L (136-145); TOTAL PROTEIN 5.1 gm/dL (6.4-8.2)
[2021-09-26] MEDS ORDERED: METOPROLOL25 MG PO (15:41)
[2021-09-27] VITALS (9 sets, daily range): BP systolic 97–165; BP diastolic 46–84
[2021-09-27 06:05] LABS: ALKALINE PHOSPHATASE 49 U/L (45-117); BUN 14 mg/dl (7-24); CHLORIDE 115 mmol/L (98-107); CREATININE 0.65 mg/dL (0.55-1.02); POTASSIUM 3.8 mmol/L (3.5-5.1); SGOT/AST 11 IU/L (3-35); SGPT/ALT 19 U/L (12-78); SODIUM 144 mmol/L (136-145); TOTAL PROTEIN 4.7 gm/dL (6.4-8.2)
[2021-09-27 06:20] LABS: EOS # 0.1 10*3/uL (0.0-0.4); EOS % 4.2 % (1.0-4.0); LYMPH # 0.8 10*3/uL (1.3-4.4); LYMPH % 25.2 % (27.0-41.0); MEAN CORPUSCULAR HGB 32.8 pg (27.0-31.0); MEAN PLATELET VOLUME 10.7 fl (9.6-12.3); MONO # 0.3 10*3/uL (0.1-1.0); MONO % 9.3 % (3.0-9.0); NEUT # 1.9 10*3/uL (2.3-7.9); PLATELET COUNT AUTOMATED 132 10*3/uL (130-400); RED BLOOD COUNT 2.44 10*6/uL (4.10-5.10); RED CELL DISTRI WIDTH 15.9 % (0-14.5); WHITE BLOOD COUNT 3.1 10*3/uL (4.8-10.8)
[2021-09-27 06:22] LABS: MEAN CELL VOLUME 102.5 fl (81.0-99.0)
[2021-09-27 06:43] LABS: ACT PARTIAL THROMBO TIME 25.4 SECONDS (20.0-32.1); INTERNATIONAL NORM RATIO 1.1 (2.0-3.5)
[2021-09-27 12:52] LABS: BILIRUBIN Negative (Negative); BLOOD Negative (Negative); CLARITY Clear (Clear); COLOR Yellow (Yellow); GLUCOSE Negative (Negative); KETONE Negative (Negative); LEUKO ESTERASE 1+ (Negative); NITRITE Negative (Negative); SPECIFIC GRAVITY 1.015 (1.001-1.030); UROBILINOGEN 0.2 E.U./dl (0.0-1.0)
[2021-09-27 13:36] LABS: BACTERIA 2+; MUCOUS 1+; WBC 21-30 wbc/hpf (0-5)
[2021-09-27] MEDS ORDERED: ZANAFLEX4 MG PO (20:18)
[2021-09-27] MEDS ORDERED: CELEXA10 MG PO (22:35)
[2021-09-27] MEDS ORDERED: RISPERDAL0.5 MG PO (22:36)
[2021-09-27] MEDS ORDERED: NORVASC2.5 MG PO (22:36)
[2021-09-27] MEDS ORDERED: CLOPIDOGREL75 MG PO (22:38)
[2021-09-27] MEDS ORDERED: TOPROL XL50 M1 PO (22:42)
[2021-09-27] MEDS ORDERED: VITAMIN D350 MC2 PO (22:52)
[2021-09-28] VITALS (7 sets, daily range): BP systolic 90–153; BP diastolic 33–82
[2021-09-28 06:35] LABS: EOS # 0.1 10*3/uL (0.0-0.4); EOS % 2.7 % (1.0-4.0); HEMATOCRIT 25.4 % (37.0-47.0); LYMPH # 0.6 10*3/uL (1.3-4.4); MEAN CORPUSCULAR HGB 32.3 pg (27.0-31.0); MEAN CORPUSCULAR HGB CONC 32.3 g/dl (33.0-37.0); MEAN PLATELET VOLUME 10.5 fl (9.6-12.3); MONO # 0.4 10*3/uL (0.1-1.0); NEUT # 2.3 10*3/uL (2.3-7.9); PLATELET COUNT AUTOMATED 133 10*3/uL (130-400); RED BLOOD COUNT 2.54 10*6/uL (4.10-5.10); RED CELL DISTRI WIDTH 14.8 % (0-14.5); WHITE BLOOD COUNT 3.4 10*3/uL (4.8-10.8)
[2021-09-28 06:41] LABS: BUN 13 mg/dl (7-24); CHLORIDE 111 mmol/L (98-107); CREATININE 0.83 mg/dL (0.55-1.02); POTASSIUM 3.7 mmol/L (3.5-5.1); SODIUM 139 mmol/L (136-145)
== END 2021-09-28 15:23 | DRG 871 ==
LOC: ED 10:47 → EDHOLD 11:08 → 4E 11:08
PROVIDERS: Internal Medicine; Student in an Organized Health Care Education/Training Program; ADMIT Internal Medicine; ATTEND Internal Medicine
PROC: 30233N1 Transfusion of Nonautologous Red Blood Cells into Peripheral Vein, Percutaneous Approach (ICD-10-PCS; 2021-09-26)
PROC: 0DB68ZX Excision of Stomach, Via Natural or Artificial Opening Endoscopic, Diagnostic (ICD-10-PCS; 2021-09-27)
PROC: 0DJD8ZZ Inspection of Lower Intestinal Tract, Via Natural or Artificial Opening Endoscopic (ICD-10-PCS; principal; 2021-09-28)
DX: A41.9 Sepsis, unspecified organism (principal); E43 Unspecified severe protein-calorie malnutrition; G93.41 Metabolic encephalopathy; K29.71 Gastritis, unspecified, with bleeding; K57.31 Diverticulosis of large intestine without perforation or abscess with bleeding; Z68.1 Body mass index [BMI] 19.9 or less, adult; Z66 Do not resuscitate; Z51.5 Encounter for palliative care; I12.9 Hypertensive chronic kidney disease with stage 1 through stage 4 chronic kidney disease, or unspecified chronic kidney disease; N18.32 Chronic kidney disease, stage 3b; D53.9 Nutritional anemia, unspecified; D69.6 Thrombocytopenia, unspecified; M1A.9XX0 Chronic gout, unspecified, without tophus (tophi); F32.A Depression, unspecified; Z96.653 Presence of artificial knee joint, bilateral; F41.1 Generalized anxiety disorder; I48.91 Unspecified atrial fibrillation; F03.90 Unspecified dementia, unspecified severity, without behavioral disturbance, psychotic disturbance, mood disturbance, and anxiety; Z88.5 Allergy status to narcotic agent; Z88.8 Allergy status to other drugs, medicaments and biological substances; Z79.899 Other long term (current) drug therapy; Z90.710 Acquired absence of both cervix and uterus; Z82.49 Family history of ischemic heart disease and other diseases of the circulatory system; Z79.1 Long term (current) use of non-steroidal anti-inflammatories (NSAID); Z79.82 Long term (current) use of aspirin

== ENCOUNTER 2021-10-01 05:54 | Emergency (ER) | payer MEDICARE ==
[~2021-10-01] VITALS: Ht 162.5 cm; Wt 68.0 kg
[~2021-10-01 05:54] MED LIST changes: +CELEXA10 MG PO; +CLOPIDOGREL75 MG PO; +METOPROLOL25 MG PO; +TOPROL XL50 M1 PO; +VITAMIN D350 MC2 PO; +ZANAFLEX4 MG PO
[2021-10-01 06:15] LABS: BASO % 0.3 % (0.0-1.0); EOS % 0.5 % (1.0-4.0); LYMPH # 0.5 10*3/uL (1.3-4.4); LYMPH % 12.4 % (27.0-41.0); MEAN CELL VOLUME 103.2 fl (81.0-99.0); MEAN CORPUSCULAR HGB 31.7 pg (27.0-31.0); MEAN CORPUSCULAR HGB CONC 30.7 g/dl (33.0-37.0); MEAN PLATELET VOLUME 9.9 fl (9.6-12.3); MONO # 0.3 10*3/uL (0.1-1.0); MONO % 8.4 % (3.0-9.0); NEUT # 2.9 10*3/uL (2.3-7.9); NEUT % 78.1 % (47.0-73.0); PLATELET COUNT AUTOMATED 149 10*3/uL (130-400); RED BLOOD COUNT 2.81 10*6/uL (4.10-5.10); RED CELL DISTRI WIDTH 14.4 % (0-14.5); WHITE BLOOD COUNT 3.7 10*3/uL (4.8-10.8)
[2021-10-01 06:21] LABS: BILIRUBIN Negative (Negative); BLOOD Negative (Negative); CLARITY Clear (Clear); COLOR Yellow (Yellow); GLUCOSE Negative (Negative); KETONE Negative (Negative); LEUKO ESTERASE Trace (Negative); NITRITE Negative (Negative); PH 5.5 (4.5-8.0); SPECIFIC GRAVITY 1.025 (1.001-1.030); UROBILINOGEN 0.2 E.U./dl (0.0-1.0)
[2021-10-01] MEDS ORDERED: ASPIRIN ADULT L81 M2 PO (06:23)
[2021-10-01] MEDS ORDERED: ZANAFLEX2 M2 PO (06:27)
[2021-10-01] MEDS ORDERED: ZOFRAN4 MG PO (06:28)
[2021-10-01 06:29] LABS: ALKALINE PHOSPHATASE 72 U/L (45-117); BUN 11 mg/dl (7-24); CHLORIDE 114 mmol/L (98-107); POTASSIUM 4.1 mmol/L (3.5-5.1); SGOT/AST 20 IU/L (3-35); SGPT/ALT 29 U/L (12-78); SODIUM 144 mmol/L (136-145); TOTAL PROTEIN 5.8 gm/dL (6.4-8.2)
[2021-10-01 06:36] LABS: ACETAMINOPHEN (TYLENOL) < 5.0 ug/ml (10-30); ETHYL ALCOHOL < 3.0 mg/dl (<3)
[2021-10-01 06:40] LABS: BACTERIA 2+; CALCIUM OXALATE CRYSTALS 1+
[2021-10-01 06:41] LABS: URINE AMPHETAMINES < 1000 (1000ng/ml); URINE BARBITURATES < 200 (200ng/ml); URINE BENZODIAZEPINES < 200 (200ng/ml); URINE CANNABINOIDS (THC) < 50 (50ng/ml); URINE COCAINE < 300 (300ng/ml); URINE METHADONE < 300 (300ng/ml); URINE OPIATES < 300 (300ng/ml)
[2021-10-01 06:43] LABS: URINE PHENCYCLIDINE < 25 (25ng/ml)
[2021-10-01 07:11] VITALS: BP 153/46
[2021-10-01] MEDS ORDERED: XARE20MG PO (11:28)
== END 2021-10-01 06:53 | disposition admitted as inpatient to this hospital (09) ==
LOC: ED 05:54
PROVIDERS: Internal Medicine
DX: F29 Unspecified psychosis not due to a substance or known physiological condition (principal); Z88.6 Allergy status to analgesic agent; Z79.899 Other long term (current) drug therapy; Z79.82 Long term (current) use of aspirin; Z90.710 Acquired absence of both cervix and uterus; Z90.89 Acquired absence of other organs

== ENCOUNTER 2021-12-10 07:47 | Emergency (ER) | payer MEDICARE ==
[~2021-12-10] VITALS: Ht 170.1 cm; Wt 56.7 kg
[~2021-12-10 07:47] MED LIST changes: +ASPIRIN ADULT L81 M2 PO; +B121000 MCG/1 IM; +GABAPENTIN100 M2 PO; +INVEGA3 MG PO; +IRON325 M1 PO; +PALIPERIDONE ER3 MG PO; +RISPERDAL2 M1 PO; +TRIHEXYPHENIDYL2 M3 PO; +TYLENOL325 M2 PO; +VITAMIN B-121000 MC2 PO; +VITAMIN D325 MCG PO; +Vitamin D (50,000 UN PO; +ZANAFLEX2 M2 PO; +ZOFRAN4 MG PO
[2021-12-10 07:55] VITALS: BP 161/78
== END 2021-12-10 11:26 | disposition home or self-care (01) ==
LOC: ED 07:47
DX: S00.212A Abrasion of left eyelid and periocular area, initial encounter (principal); I12.9 Hypertensive chronic kidney disease with stage 1 through stage 4 chronic kidney disease, or unspecified chronic kidney disease; N18.30 Chronic kidney disease, stage 3 unspecified; M10.9 Gout, unspecified; I48.91 Unspecified atrial fibrillation; Z90.49 Acquired absence of other specified parts of digestive tract; Z90.89 Acquired absence of other organs; Z90.710 Acquired absence of both cervix and uterus; Z98.890 Other specified postprocedural states; Z79.899 Other long term (current) drug therapy; Z88.6 Allergy status to analgesic agent; W18.39XA Other fall on same level, initial encounter; Y93.89 Activity, other specified; Y92.89 Other specified places as the place of occurrence of the external cause; Y99.8 Other external cause status

== ENCOUNTER 2022-03-24 12:38 | Inpatient (IN) | payer MEDICARE ==
[~2022-03-24] VITALS: Ht 170.1 cm; Wt 54.5 kg
[2022-03-24 12:42] VITALS: BP 173/69
[2022-03-24 13:01] LABS: BASO % 0.2 % (0.0-1.0); EOS # 0.1 10*3/uL (0.0-0.4); EOS % 1.1 % (1.0-4.0); HEMATOCRIT 40.1 % (37.0-47.0); LYMPH # 1.1 10*3/uL (1.3-4.4); LYMPH % 23.3 % (27.0-41.0); MEAN CELL VOLUME 102.3 fl (81.0-99.0); MEAN CORPUSCULAR HGB 34.2 pg (27.0-31.0); MEAN CORPUSCULAR HGB CONC 33.4 g/dl (33.0-37.0); MEAN PLATELET VOLUME 9.8 fl (9.6-12.3); MONO # 0.4 10*3/uL (0.1-1.0); MONO % 8.1 % (3.0-9.0); NEUT # 3.1 10*3/uL (2.3-7.9); NEUT % 66.9 % (47.0-73.0); PLATELET COUNT AUTOMATED 130 10*3/uL (130-400); RED BLOOD COUNT 3.92 10*6/uL (4.10-5.10); RED CELL DISTRI WIDTH 13.3 % (0-14.5); WHITE BLOOD COUNT 4.7 10*3/uL (4.8-10.8)
[2022-03-24 13:12] LABS: INTERNATIONAL NORM RATIO 1.1 (2.0-3.5)
[2022-03-24 13:22] LABS: ALKALINE PHOSPHATASE 83 U/L (45-117); BUN 18 mg/dl (7-24); CHLORIDE 110 mmol/L (98-107); CREATININE 0.96 mg/dL (0.55-1.02); LIPASE 268 U/L (73-393); POTASSIUM 4.2 mmol/L (3.5-5.1); SGOT/AST 18 IU/L (3-35); SGPT/ALT 26 U/L (12-78); SODIUM 143 mmol/L (136-145); TOTAL PROTEIN 6.3 gm/dL (6.4-8.2)
[2022-03-24 14:59] LABS: BILIRUBIN Negative (Negative); BLOOD Negative (Negative); CLARITY Clear (Clear); COLOR Yellow (Yellow); GLUCOSE Negative (Negative); KETONE Trace (Negative); LEUKO ESTERASE 1+ (Negative); NITRITE Negative (Negative); PH 7.5 (4.5-8.0)
[2022-03-24 15:26] LABS: RBC 0-2 rbc/hpf (0-2)
[2022-03-24 15:27] LABS: BACTERIA 1+; EPITHELIAL CELLS 41-50
[2022-03-24 16:57] VITALS: BP 121/75
[2022-03-24 21:30] VITALS: BP 184/78
[2022-03-25 01:34] VITALS: BP 170/66
[2022-03-25 06:00] VITALS: BP 160/74
[2022-03-25 06:34] LABS: BASO % 0.2 % (0.0-1.0); EOS # 0.1 10*3/uL (0.0-0.4); EOS % 1.3 % (1.0-4.0); HEMATOCRIT 41.3 % (37.0-47.0); LYMPH # 1.3 10*3/uL (1.3-4.4); LYMPH % 24.1 % (27.0-41.0); MEAN CELL VOLUME 103.3 fl (81.0-99.0); MEAN CORPUSCULAR HGB 33.8 pg (27.0-31.0); MEAN CORPUSCULAR HGB CONC 32.7 g/dl (33.0-37.0); MEAN PLATELET VOLUME 10.4 fl (9.6-12.3); MONO # 0.4 10*3/uL (0.1-1.0); MONO % 7.3 % (3.0-9.0); NEUT # 3.5 10*3/uL (2.3-7.9); NEUT % 66.7 % (47.0-73.0); PLATELET COUNT AUTOMATED 131 10*3/uL (130-400); RED CELL DISTRI WIDTH 13.1 % (0-14.5); WHITE BLOOD COUNT 5.2 10*3/uL (4.8-10.8)
[2022-03-25 06:45] LABS: BUN 14 mg/dl (7-24); CHLORIDE 111 mmol/L (98-107); CREATININE 0.83 mg/dL (0.55-1.02); POTASSIUM 3.6 mmol/L (3.5-5.1); SGOT/AST 18 IU/L (3-35); SGPT/ALT 25 U/L (12-78); SODIUM 144 mmol/L (136-145)
[2022-03-25 06:46] LABS: ALKALINE PHOSPHATASE 83 U/L (45-117); TOTAL PROTEIN 6.5 gm/dL (6.4-8.2)
[2022-03-25 08:00] VITALS: BP 178/84
[2022-03-25 12:00] VITALS: BP 146/64
[2022-03-25 16:00] VITALS: BP 140/60
[2022-03-25 20:00] VITALS: BP 158/89
[2022-03-26] VITALS: BP 127/67
[2022-03-26 06:10] LABS: BUN 15 mg/dl (7-24); CHLORIDE 111 mmol/L (98-107); CREATININE 0.74 mg/dL (0.55-1.02); POTASSIUM 3.4 mmol/L (3.5-5.1); SODIUM 144 mmol/L (136-145)
[2022-03-26 06:11] LABS: BASO % 0.3 % (0.0-1.0); EOS # 0.1 10*3/uL (0.0-0.4); HEMATOCRIT 35.8 % (37.0-47.0); LYMPH # 1.2 10*3/uL (1.3-4.4); LYMPH % 29.6 % (27.0-41.0); MEAN CELL VOLUME 102.9 fl (81.0-99.0); MEAN CORPUSCULAR HGB 33.9 pg (27.0-31.0); MEAN PLATELET VOLUME 10.2 fl (9.6-12.3); MONO # 0.4 10*3/uL (0.1-1.0); MONO % 10.8 % (3.0-9.0); NEUT # 2.3 10*3/uL (2.3-7.9); PLATELET COUNT AUTOMATED 130 10*3/uL (130-400); RED BLOOD COUNT 3.48 10*6/uL (4.10-5.10); RED CELL DISTRI WIDTH 13.3 % (0-14.5)
[2022-03-26 08:00] VITALS: BP 147/83
[2022-03-26 16:10] VITALS: BP 128/71
[2022-03-27] VITALS: BP 107/70
[2022-03-27 06:19] LABS: CHLORIDE 112 mmol/L (98-107); POTASSIUM 3.7 mmol/L (3.5-5.1); SODIUM 144 mmol/L (136-145)
[2022-03-27 06:23] LABS: BASO % 0.3 % (0.0-1.0); EOS # 0.1 10*3/uL (0.0-0.4); EOS % 2.5 % (1.0-4.0); HEMATOCRIT 34.8 % (37.0-47.0); LYMPH % 25.9 % (27.0-41.0); MEAN CORPUSCULAR HGB 33.7 pg (27.0-31.0); MEAN CORPUSCULAR HGB CONC 32.8 g/dl (33.0-37.0); MEAN PLATELET VOLUME 10.2 fl (9.6-12.3); MONO # 0.4 10*3/uL (0.1-1.0); MONO % 9.8 % (3.0-9.0); NEUT # 2.4 10*3/uL (2.3-7.9); NEUT % 61.2 % (47.0-73.0); PLATELET COUNT AUTOMATED 122 10*3/uL (130-400); RED BLOOD COUNT 3.38 10*6/uL (4.10-5.10); RED CELL DISTRI WIDTH 13.3 % (0-14.5)
[2022-03-27 06:29] LABS: BUN 15 mg/dl (7-24); CREATININE 0.77 mg/dL (0.55-1.02)
[2022-03-27 08:00] VITALS: BP 136/56
[2022-03-27 12:00] VITALS: BP 124/68
[2022-03-27 16:00] VITALS: BP 135/73
[2022-03-27 20:00] VITALS: BP 102/48
[2022-03-28] VITALS: BP 154/67
[2022-03-28 08:00] VITALS: BP 140/61
[2022-03-28] MEDS ORDERED: AMLODIPINE BESYL5 MG PO (10:19)
== END 2022-03-28 14:26 | DRG 689 ==
LOC: ED 12:38 → EDHOLD 16:20 → 4E 16:20
PROVIDERS: Emergency Medicine; Internal Medicine; ADMIT Internal Medicine; ATTEND Internal Medicine
DX: N30.00 Acute cystitis without hematuria (principal); G93.41 Metabolic encephalopathy; E86.0 Dehydration; Z96.651 Presence of right artificial knee joint; F41.1 Generalized anxiety disorder; I12.9 Hypertensive chronic kidney disease with stage 1 through stage 4 chronic kidney disease, or unspecified chronic kidney disease; N18.30 Chronic kidney disease, stage 3 unspecified; M10.9 Gout, unspecified; F03.90 Unspecified dementia, unspecified severity, without behavioral disturbance, psychotic disturbance, mood disturbance, and anxiety; F32.9 Major depressive disorder, single episode, unspecified; I48.91 Unspecified atrial fibrillation; E83.41 Hypermagnesemia; R73.9 Hyperglycemia, unspecified; E87.8 Other disorders of electrolyte and fluid balance, not elsewhere classified; Z20.822 Contact with and (suspected) exposure to COVID-19; E87.6 Hypokalemia; D53.9 Nutritional anemia, unspecified; Z88.6 Allergy status to analgesic agent; Z88.8 Allergy status to other drugs, medicaments and biological substances; Z86.73 Personal history of transient ischemic attack (TIA), and cerebral infarction without residual deficits; Z90.710 Acquired absence of both cervix and uterus; Z81.1 Family history of alcohol abuse and dependence; Z82.49 Family history of ischemic heart disease and other diseases of the circulatory system